=== PATIENT | female | born 1940 | race Caucasian/White ===

== ENCOUNTER → 2019-07-07 11:30 | Outpatient (BNVA) | payer MEDICARE, BC, SELFPAY | PROVIDERS: Family Provider Internal Medicine; PCP Internal Medicine; Visit Provider Nurse Practitioner Family | DX: M25.532 Pain in left wrist (principal) | CPT/HCPCS: 73110 ==

== ENCOUNTER → 2019-09-13 16:00 | Outpatient (BNVA) | payer MEDICARE, BC, SELFPAY | PROVIDERS: Family Provider Internal Medicine; PCP Internal Medicine; Visit Provider Internal Medicine Rheumatology | DX: M35.3 Polymyalgia rheumatica (principal); M81.0 Age-related osteoporosis without current pathological fracture; N18.3 Chronic kidney disease, stage 3 (moderate); Z79.899 Other long term (current) drug therapy; Z79.52 Long term (current) use of systemic steroids; M79.661 Pain in right lower leg; M79.662 Pain in left lower leg | CPT/HCPCS: 99215; G0463 ==

== ENCOUNTER 2019-09-15 08:31 | Outpatient (CLI) | payer MEDICARE, BC, SELFPAY ==
--- NOTE | 2019-09-15 08:45 | XR_ITS ---
WS: [id number] LEFT TIBIA-FIBULA 2 VIEWS HISTORY: leg pain COMPARISON: None available. No acute fracture. Mild osteoarthritis at the compartments of the knee. No soft tissue calcifications . XR/XR tibia fibula LT 2V [id number] IMPRESSION: Mild tricompartment osteoarthritis at the LEFT knee.
--- NOTE | 2019-09-15 08:45 | XR_ITS ---
WS: [id number] RIGHT TIBIA-FIBULA 2 VIEWS HISTORY: leg pain COMPARISON: None available. No acute fracture. Mild osteoarthritic changes at the knee involving all 3 compartments. No bone dest ruction. No calcification. XR/XR tibia fibula RT 2V [id number] IMPRESSION: Mild tricompartment osteoarthritis RIGHT knee.
== END 2019-09-15 08:32 | disposition home or self-care (01) ==
LOC: RADWPI 08:36
PROVIDERS: Family Provider Internal Medicine; PCP Internal Medicine; Visit Provider Internal Medicine Rheumatology
DX: M17.0 Bilateral primary osteoarthritis of knee (principal)
CPT/HCPCS: 73590

== ENCOUNTER 2019-10-14 13:45 | Outpatient (CLI) | payer MEDICARE, BC, SELFPAY ==
--- NOTE | 2019-10-14 13:51 | MM_ITS ---
WS: [id number] BILATERAL DIGITAL SCREENING MAMMOGRAPHY WITH CAD CLINICAL INFORMATION: SCREENING HISTORY: Screening mammogram. No current complaints. COMPARISON: May 27, 2018 TECHNIQUE: Bilateral CC and MLO views. FINDINGS: Scattered fibroglandular densities bilaterally. No suspicious focal mass, asymmetry, calcifications, or architectural distortion. No evidence of malignancy. Stable tiny punctate calcifications. MM/[place] [id number] IMPRESSION: BI-RADS: 2-Benign FOLLOW UP: 1 Year Follow-up Recommend return to annual screening mammography.
== END 2019-10-14 13:46 | disposition home or self-care (01) ==
LOC: RADSHAW 13:50
PROVIDERS: PCP Internal Medicine; Visit Provider Internal Medicine
DX: Z12.31 Encounter for screening mammogram for malignant neoplasm of breast (principal)
CPT/HCPCS: 77067

== ENCOUNTER → 2019-11-15 14:53 | Outpatient (BNVA) | payer MEDICARE, BC, SELFPAY | PROVIDERS: PCP Internal Medicine; Visit Provider Internal Medicine Rheumatology | DX: M35.3 Polymyalgia rheumatica (principal); M81.0 Age-related osteoporosis without current pathological fracture; Z79.899 Other long term (current) drug therapy; E20.9 Hypoparathyroidism, unspecified; N18.3 Chronic kidney disease, stage 3 (moderate); Z79.52 Long term (current) use of systemic steroids; M17.0 Bilateral primary osteoarthritis of knee; M48.061 Spinal stenosis, lumbar region without neurogenic claudication | CPT/HCPCS: 99214 ==

== ENCOUNTER → 2020-01-12 13:49 | Outpatient (BNVA) | payer MEDICARE, BC, SELFPAY | PROVIDERS: PCP Internal Medicine; Referring Provider Internal Medicine; Visit Provider Internal Medicine | DX: E89.0 Postprocedural hypothyroidism (principal); E89.2 Postprocedural hypoparathyroidism; M81.0 Age-related osteoporosis without current pathological fracture; N18.3 Chronic kidney disease, stage 3 (moderate) | CPT/HCPCS: 99204 ==

== ENCOUNTER → 2020-01-17 13:10 | Outpatient (BNVA) | payer MEDICARE, BC, SELFPAY | PROVIDERS: PCP Internal Medicine; Visit Provider Internal Medicine Rheumatology | DX: M35.3 Polymyalgia rheumatica (principal); N18.3 Chronic kidney disease, stage 3 (moderate); M81.0 Age-related osteoporosis without current pathological fracture; Z79.899 Other long term (current) drug therapy; E89.0 Postprocedural hypothyroidism; E89.2 Postprocedural hypoparathyroidism; M17.0 Bilateral primary osteoarthritis of knee; M48.061 Spinal stenosis, lumbar region without neurogenic claudication | CPT/HCPCS: 99214 ==

== ENCOUNTER → 2020-01-31 13:17 | Outpatient (BNVA) | payer MEDICARE, BC, SELFPAY | PROVIDERS: PCP Internal Medicine; Visit Provider Internal Medicine | DX: E83.51 Hypocalcemia (principal); E89.2 Postprocedural hypoparathyroidism; E89.0 Postprocedural hypothyroidism; M81.0 Age-related osteoporosis without current pathological fracture | CPT/HCPCS: 99214 ==

== ENCOUNTER 2020-01-31 14:36 | Outpatient (CLI) | payer MEDICARE, BC, SELFPAY ==
[2020-01-31 16:16] LABS: Calcium 10.3 mg/dL (8.5-10.5); Parathyroid Hormone 1.2 pg/mL (15-65)
[2020-01-31 16:36] LABS: 25 Hydroxy Vitamin D 40 ng/mL (30-100); Alkaline Phosphatase 98 IU/L (35-105); Anion Gap 18.9 (5-19); Blood Urea Nitrogen 21 mg/dL (8-23); Calcium 9.7 mg/dL (8.5-10.5); Carbon Dioxide 26 mmol/L (22-29); Chloride 100 mmol/L (98-107); Glucose 115 mg/dL (65-115); Osmolality Calculated 296 mOsm/kg (285-295); Phosphorus 4.7 mg/dL (2.5-4.5); Potassium 3.9 mmol/L (3.5-5.1); Sodium 141 mmol/L (136-145)
== END 2020-01-31 14:37 | disposition home or self-care (01) ==
LOC: LAB 14:42
PROVIDERS: PCP Internal Medicine; Visit Provider Internal Medicine
DX: E20.9 Hypoparathyroidism, unspecified (principal); M81.0 Age-related osteoporosis without current pathological fracture; N18.30 Chronic kidney disease, stage 3 unspecified
CPT/HCPCS: 80048; 82306; 82310; 83970; 84075; 84080; 84100

== ENCOUNTER 2020-03-28 13:51 | Outpatient (CLI) | payer MEDICARE, BC, SELFPAY ==
--- NOTE | 2020-03-28 14:15 | XR_ITS ---
WS: [id number] DEXA (DUAL ENERGY X-RAY ABSORPTIOMETRY) Bone mineral density was performed using a [employer] machine. HISTORY: osteoporosis COMPARISON: 03/24/2018 Lumbar spine BMD (L1-L4): 1.305 g/cm2 T score: 1.0 Z score: 2.4 Total hip BMD: Right: 0.918. T score: -0.7 Z score: 0.9 Left forearm BMD: 0.790 g/cm2. T score: -1.0 Z score: 1.6 10 year probability of a major osteoporotic fracture is 22%. Compared to the prior study from 03/24/2018. Lumbar spine bone mineral density has increased by 3.2%. RIGHT hip bone mineral density has decreased by 0.2%. XR/XR DEXA axial skeleton* [id number] IMPRESSION: NORMAL BONE MINERAL DENSITY based upon the WHO classification for females. Sign ificant increase in bone mineral density lumbar spine since the prior study.
== END 2020-03-28 13:52 | disposition home or self-care (01) ==
LOC: RADWPI 13:56
PROVIDERS: PCP Internal Medicine; Visit Provider Internal Medicine Rheumatology
DX: M81.0 Age-related osteoporosis without current pathological fracture (principal)
CPT/HCPCS: 77080

== ENCOUNTER 2020-04-14 09:48 | Outpatient (CLI) | payer MEDICARE, BC, SELFPAY | END 2020-04-14 09:49 | disposition home or self-care (01) | PROVIDERS: PCP Internal Medicine; Visit Provider Internal Medicine | DX: E89.0 Postprocedural hypothyroidism (principal); E89.2 Postprocedural hypoparathyroidism; M81.0 Age-related osteoporosis without current pathological fracture; N18.30 Chronic kidney disease, stage 3 unspecified | CPT/HCPCS: 36415; 99214 ==

== ENCOUNTER → 2020-05-08 14:47 | Outpatient (BNVA) | payer MEDICARE, BC, SELFPAY | PROVIDERS: PCP Internal Medicine; Visit Provider Internal Medicine Rheumatology | DX: M35.3 Polymyalgia rheumatica (principal); M81.0 Age-related osteoporosis without current pathological fracture; M16.0 Bilateral primary osteoarthritis of hip; M17.0 Bilateral primary osteoarthritis of knee; M48.061 Spinal stenosis, lumbar region without neurogenic claudication; N18.30 Chronic kidney disease, stage 3 unspecified; E89.2 Postprocedural hypoparathyroidism; I87.2 Venous insufficiency (chronic) (peripheral); Z79.899 Other long term (current) drug therapy | CPT/HCPCS: 99214 ==

== ENCOUNTER → 2020-06-29 15:46 | Outpatient (BNVA) | payer MEDICARE, BC, SELFPAY | PROVIDERS: PCP Internal Medicine; Visit Provider Internal Medicine | DX: E83.51 Hypocalcemia (principal); E89.2 Postprocedural hypoparathyroidism; M81.0 Age-related osteoporosis without current pathological fracture; N18.30 Chronic kidney disease, stage 3 unspecified | CPT/HCPCS: 99215 ==

== ENCOUNTER → 2020-09-04 14:18 | Outpatient (BNVA) | payer MEDICARE, BC, SELFPAY | PROVIDERS: PCP Internal Medicine; Visit Provider Internal Medicine Rheumatology | DX: M35.3 Polymyalgia rheumatica (principal); R51.9 Headache, unspecified; Z79.899 Other long term (current) drug therapy; Z79.52 Long term (current) use of systemic steroids; N18.30 Chronic kidney disease, stage 3 unspecified; I87.2 Venous insufficiency (chronic) (peripheral); M81.0 Age-related osteoporosis without current pathological fracture; M17.0 Bilateral primary osteoarthritis of knee; M16.0 Bilateral primary osteoarthritis of hip; Z96.642 Presence of left artificial hip joint | CPT/HCPCS: 36415; 85651; 86140; 99214 ==

== ENCOUNTER 2020-09-04 15:48 | Outpatient (CLI) | payer MEDICARE, BC, SELFPAY ==
[2020-09-04 16:35] LABS: C Reactive Protein 2.5 mg/L (0.0-4.9)
[2020-09-04 18:02] LABS: Erythrocyte Sedimentation Rate 25 mm/hr (0-15)
== END 2020-09-04 15:49 | disposition home or self-care (01) ==
LOC: LAB 15:57
PROVIDERS: PCP Internal Medicine; Visit Provider Internal Medicine Rheumatology
DX: M35.3 Polymyalgia rheumatica (principal); Z79.899 Other long term (current) drug therapy
CPT/HCPCS: 36415; 85651; 86140

== ENCOUNTER → 2020-09-08 09:34 | Outpatient (BNVA) | payer MEDICARE, BC, SELFPAY | PROVIDERS: PCP Internal Medicine; Visit Provider Surgery | DX: Z20.822 Contact with and (suspected) exposure to COVID-19 (principal) | CPT/HCPCS: 87635 ==

== ENCOUNTER 2020-09-13 05:38 | Day surgery (SDC) | payer MEDICARE, BC, SELFPAY ==
[2020-09-12 14:06] VITALS: BMI 37.5
[2020-09-13 06:10] VITALS: BP 177/78; PULSE 70; RESP 20; TEMP 36.4; O2SAT 97
[2020-09-13] MEDS: sodium chloride 0.9% 1,000 ML 30 ML IV (06:25)
--- NOTE | 2020-09-13 06:54 | W.PM.OPSUD ---
Surgery/Procedure H&P Update DATE OF PROCEDURE: September 13, 2020 DATE H&P PERFORMED: 09/05/20 H&P UPDATE INFORMATION: I have reviewed H&P completed within last 30 days, I have examined patient prior to procedure and No changes to prior documentation PREOP DIAGNOSIS: Right temporal headache PLANNED PROCEDURE: Operation Date: 09/13/20 07:00 Proposed Procedures p RIGHT TEMPORAL ARTERY BIOPSY UNDER MAC 31852 R51.9(Right) - Awais Werner MD
--- NOTE | 2020-09-13 06:54 | ANES.PREANE2 ---
Pre-Anesthetic Assessment Pre-Anesthetic Assessment: Height/Weight: Height 1.52 m Weight 87.09 kg Temp Pulse Resp BP Pulse Ox 97.6 F 70 20 H 177/78 97 09/13/20 06:10 09/13/20 06:10 09/13/20 06:10 09/13/20 06:10 09/13/20 06:10 Preop Diagnosis: Right temporal headache Proposed Procedure: Operation Date: 09/13/20 07:00 Proposed Procedures p RIGHT TEMPORAL ARTERY BIOPSY UNDER MAC 58311 R51.9(Right) - Awais Werner MD Was Beta Francia taken within 24 hours: N/A Was Clonidine taken within 24 hours: N/A Last intake: Intake Last Liquid Date 09/12/20 Last Liquid Time 20:00 Last Solid Date 09/12/20 Last Solid Time 16:00 Social: Social History: No alcohol and No tobacco Exam: Pre-Anes Outpt Exam: alert, oriented x 3, clear to auscultation bilaterally and regular rate & rhythm Airway: Submandibular: WNL Cervical ROM: Other (Some limitation) MP: 3 Dentition: Full CV/HEM: CV/HEM: HTN : : Chronic renal Insufficiency GI: GI: GERD Metabolic: Metabolic: Morbid obesity and Thyroid Musc/skel: Comments: PMR-chronic steroid Anesthetic Plan: ASA status: 3 Anesthesia: MAC Risk of > 500 ml blood loss (7ml/kg in children): No Meds/Allergies Current Medications: Current Medications Generic Name Dose Route Start Last Admin Trade Name Freq PRN Reason Stop Dose Admin Sodium Chloride 1,000 mls @ 30 ml s/hr 09/13/20 06:00 09/13/20 06:25 Sodium Chloride 0.9% IV 09/14/20 05:59 30 mls/hr .Q24H ANSELMO Administration PFSH Anesthesia PFSH: Medical History CKD (chronic kidney disease) stage 3, GFR 30-59 ml/min GERD (gastroesophageal reflux disease) Hypertension Hypocalcemia Hypoparathyroidism Osteoporosis PMR (polymyalgia rheumatica) Right temporal headache Surgical History H/O thyroidectomy History of arthroscopy of right knee History of left hip replacement Status post colonoscopy Family History Other CAD (coronary artery disease) Cancer Diabetes Hypertension Stroke Denies family history of Rheumatoid arthritis Systemic lupus erythematosus (SLE) in adult Social History Smoking and tobacco status: never smoked Alcohol intake: never History of recent travel: No Data Anesthesia Cardiac Studies: No Data to Display
[2020-09-13] MEDS: lidocaine 1% INJ 20 mL SUBCUT (07:22)
--- NOTE | 2020-09-13 07:48 | PM.OP ---
Operative Report Date of procedure: September 13, 2020 Pre-op Diagnosis: Right temporal headache Post-op diagnosis: same Procedure Done: Right superficial temporal artery biopsy Specimens removed/disposition: Right superficial temporal artery Surgeon: Awais Werner Anesthesia: MAC Condition: stable Disposition: PACU Procedure: The patient was taken to the operating room and the right temporal artery was marked using a Doppler and the hair overlying the markings were clipped. 5 mL of 1% lidocaine with 0.5% Marcaine was infiltrated around this area. Using a 15 blade the skin and subcutaneous tissue was divided until the temporoparietal fascia was identified. The temporoparietal fascia was opened using iris scissors and about a 3 cm segment of temporal artery was skeletonized. Small vascular clips were applied proximally and distally and the artery was divided and sent to pathology. Hemostasis ensured, subcutis tissue approximate using running 3-0 Vicryl suture and skin was closed using running subcuticular 4-0 Monocryl suture and Dermabond.
[2020-09-13 07:50] VITALS: BP 151/67; PULSE 96; RESP 16; TEMP 36.1; O2SAT 95
[2020-09-13 07:55] VITALS: BP 142/74; PULSE 74; RESP 16; TEMP 36.4; O2SAT 95
[2020-09-13 08:00] VITALS: BP 158/66; PULSE 64; RESP 16; TEMP 36.4; O2SAT 94
[2020-09-13 08:13] VITALS: BP 158/65; PULSE 67; RESP 18; O2SAT 96
[2020-09-13 08:29] VITALS: BP 154/71; PULSE 63; RESP 18; O2SAT 97
--- NOTE | 2020-09-13 13:35 | ANE.PACU2 ---
Inpatient post-anesthesia follow up: Airway intact: Yes Vital signs: Temperature 97.6 F Pulse Rate 63 Respiratory Rate 18 Blood Pressure 154/71 Pulse Oximetry 97 Oxygen Delivery Me thod Room Air Oxygen Flow Rate Fraction of Inspir ed Oxygen Hydration adequate: Yes Nausea and vomiting: No Pain level: 1 Mental status: Baseline
== END 2020-09-13 08:45 | disposition home or self-care (01) ==
PROVIDERS: PCP Internal Medicine; Visit Provider Surgery
PROC: (CPT 37609; principal; 2020-09-13 07:00)
DX: R51.9 Headache, unspecified (principal); I10 Essential (primary) hypertension; K21.9 Gastro-esophageal reflux disease without esophagitis; E66.01 Morbid (severe) obesity due to excess calories; Z68.37 Body mass index [BMI] 37.0-37.9, adult; E03.9 Hypothyroidism, unspecified; M81.0 Age-related osteoporosis without current pathological fracture
CPT/HCPCS: 37609; 88305; J0690; J2704; J3010; J3490; J7030

== ENCOUNTER → 2020-09-26 11:35 | Outpatient (BNVA) | payer MEDICARE, BC, SELFPAY | PROVIDERS: PCP Internal Medicine; Visit Provider Internal Medicine Rheumatology | DX: M35.3 Polymyalgia rheumatica (principal); M31.6 Other giant cell arteritis; R51.9 Headache, unspecified; Z79.899 Other long term (current) drug therapy; Z79.52 Long term (current) use of systemic steroids; M81.0 Age-related osteoporosis without current pathological fracture; M17.0 Bilateral primary osteoarthritis of knee; M48.061 Spinal stenosis, lumbar region without neurogenic claudication; I87.2 Venous insufficiency (chronic) (peripheral); E89.2 Postprocedural hypoparathyroidism; Z96.642 Presence of left artificial hip joint | CPT/HCPCS: 99214 ==

== ENCOUNTER 2020-10-03 10:20 | Outpatient (CLI) | payer MEDICARE, BC, SELFPAY ==
--- NOTE | 2020-10-03 10:35 | XRR_ITS ---
PROCEDURE INFORMATION: Exam: XR Pelvis Exam date and time: 10/03/2020 10:44 AM Age: 80 years old Clinical indication: Pain and injury or trauma; Fall; Blunt trauma (contusions or hematomas); Does not apply; Pelvic region; Pelvic pain; Prior surgery; Surgery type: Left total hip; Additional info: Acute back pain/hx of falling TECHNIQUE: Imaging protocol: XR pelvis. Views: 1 or 2 view. COMPARISON: CR Pelvis AP 1 or 2 views* [id number] 12/24/2016 9:48 AM FINDINGS: Bones/joints: Metallic left hip arthroplasty is present in good position. No acute fracture. Soft tissues: Unremarkable. Other findings: similar findings seen comparing to prior examination XR/XR pelvis 1-2V* [id number] IMPRESSION: 1. Metallic arthroplasty left hip in good position 2. No acute findings.
--- NOTE | 2020-10-03 10:35 | XRR_ITS ---
PROCEDURE INFORMATION: Exam: XR Cervical Spine Exam date and time: 10/03/2020 10:44 AM Age: 80 years old Clinical indication: Pain and injury or trauma; Fall; Blunt trauma; Cervicalgia; Additional info: Acute back pain/hx of falling TECHNIQUE: Imaging protocol: XR of the cervical spine. Views: 2 or 3 views. COMPARISON: CR Modified Barium Swallow [id number] 05/11/2015 11:37 AM FINDINGS: Bones/joints: There is a moderate osteoarthritis seen with intervertebral disc space narrowing and bone spurs at multiple levels. No acute subluxations are seen.. No acute fracture. There is loss of cervical lordosis which may reflect muscle spasm Soft tissues: Soft tissues in the anterior neck show multiple metallic surgical clips. XR/XR cervical spine 3V* [id number] IMPRESSION: 1. No acute bony abnormality. 2. Moderate osteoarthritis. 3. Surgical clips anterior neck soft tissues
--- NOTE | 2020-10-03 10:35 | XRR_ITS ---
PROCEDURE INFORMATION: Exam: XR Lumbosacral Spine Exam date and time: 10/03/2020 10:44 AM Age: 80 years old Clinical indication: Pain and injury or trauma; Fall; Blunt trauma (contusions or hematomas); Low back pain; Additional info: Acute back pain/hx of falling TECHNIQUE: Imaging protocol: XR of the lumbosacral spine. Views: 2 or 3 views. COMPARISON: CR Pelvis AP 1 or 2 views* [id number] 12/24/2016 9:48 AM FINDINGS: Bones/joints: There is multilevel intervertebral disc space narrowing corresponding to moderate osteoarthritis. No acute fracture. There is retrolisthesis L4-L5. Soft tissues: Unremarkable. XR/XR lumbar spine 2-3V* [id number] IMPRESSION: 1. No acute findings. 2. Moderate osteoarthritis. 3. Retrolisthesis L4-L5
--- NOTE | 2020-10-03 10:35 | XRR_ITS ---
PROCEDURE INFORMATION: Exam: XR Thoracic Spine Exam date and time: 10/03/2020 10:44 AM Age: 80 years old Clinical indication: Pain and injury or trauma; Fall; Blunt trauma (contusions or hematomas); Pain in thoracic spine; Additional info: Acute back pain/hx of falling TECHNIQUE: Imaging protocol: XR of the thoracic spine. Views: 3 views. COMPARISON: No relevant prior studies available. FINDINGS: Bones/joints: There is generalized osteopenia. No acute fracture. Normal alignment. There is a circumscribed sclerotic sclerotic appearing density posterior aspect of T10 on the lateral view which is not documented on other views and may reflect positional artifact Soft tissues: Unremarkable. XR/XR thoracic spine 2V [id number] IMPRESSION: No acute findings.
== END 2020-10-03 10:21 | disposition home or self-care (01) ==
PROVIDERS: PCP Internal Medicine; Visit Provider Internal Medicine
DX: M54.2 Cervicalgia (principal); M54.5 Low back pain; M54.6 Pain in thoracic spine; Z96.642 Presence of left artificial hip joint; M47.816 Spondylosis without myelopathy or radiculopathy, lumbar region; M47.812 Spondylosis without myelopathy or radiculopathy, cervical region
CPT/HCPCS: 72040; 72070; 72100; 72170

== ENCOUNTER → 2020-10-18 12:56 | Outpatient (BNVA) | payer MEDICARE, BC, SELFPAY | PROVIDERS: PCP Internal Medicine; Visit Provider Internal Medicine Rheumatology | DX: M35.3 Polymyalgia rheumatica (principal); Z79.899 Other long term (current) drug therapy | CPT/HCPCS: 36415; 80076; 82565; 85025; 86140 ==

== ENCOUNTER → 2020-11-07 14:37 | Outpatient (BNVA) | payer MEDICARE, BC, SELFPAY | PROVIDERS: PCP Internal Medicine; Visit Provider Internal Medicine Rheumatology | DX: M31.6 Other giant cell arteritis (principal); M35.3 Polymyalgia rheumatica; Z79.899 Other long term (current) drug therapy; Z71.89 Other specified counseling; I87.2 Venous insufficiency (chronic) (peripheral); N18.30 Chronic kidney disease, stage 3 unspecified; E89.0 Postprocedural hypothyroidism; M81.0 Age-related osteoporosis without current pathological fracture; M17.0 Bilateral primary osteoarthritis of knee; M48.061 Spinal stenosis, lumbar region without neurogenic claudication | CPT/HCPCS: 99214 ==

== ENCOUNTER 2020-11-30 10:48 | Inpatient (IN) | payer MEDICARE, BC, SELFPAY ==
[2020-11-30] VITALS (9 sets, daily range): BP systolic 125–175; BP diastolic 73–87; PULSE 76–97; RESP 15–20; TEMP 36.4–36.6; O2SAT 89–95; BMI 36.1
--- NOTE | 2020-11-30 11:53 | ECG_ITS ---
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 Measurements Intervals Binger Rate: 98 P: 38 WV: 161 QRS: 11 QRSD: 83 T: 38 QT: 317 QTc: 406 Interpretive Statements SINUS RHYTHM LOW QRS VOLTAGE IN PRECORDIAL LEADS [QRS DEFLECTION < 1.0 mV IN CHEST LEADS] ANTEROSEPTAL MYOCARDIAL INFARCTION [40+ ms Q WAVE IN V1-V4], OF INDETERMINATE AGE Compared to ECG 06/23/2018 12:01:19 Myocardial infarct finding now present Electronically Signed On 12-01-2020 16:43:04 CDT by Sridevi Vila M.D. [id number]
--- NOTE | 2020-11-30 11:54 | XRR_ITS ---
PROCEDURE INFORMATION: Exam: XR Chest Exam date and time: 11/30/2020 11:54 AM Age: 80 years old Clinical indication: Pain; Shortness of breath; Angina pectoris; Additional info: Chest pain TECHNIQUE: Imaging protocol: XR of the chest. Views: 1 view. COMPARISON: CR Chest 1 [place] [id number] 01/06/2017 9:27 AM FINDINGS: Lungs: Stable left lower lobe granuloma (17.3 mm). No consolidation. Pleural spaces: Unremarkable. No pleural effusion. No pneumothorax. Heart/Mediastinum: Unremarkable. No cardiomegaly. Bones/joints: Unremarkable. XR/XR chest 1V portable [id number] IMPRESSION: 1. No acute findings. 2. Stable left lower lobe calcified granuloma
--- NOTE | 2020-11-30 12:27 | W.ED.WEAKNES ---
HPI - Weakness General: Chief complaint: Weakness Stated complaint: WEAK WITH FATIGUE Time Seen by Provider: 11/30/20 11:07 History of Present Illness: HPI Narrative: Patient is a 80-year-old female with a history of CKD stage III, GCA currently on steroid taper (12.5mg daily), hypothyroidism, hypertension, obesity, who presents the emergency room for evaluation of fatigue x2 weeks in the setting of generalized weakness and exertional shortness of breath since then. Patient noticed that her lower extremity has become more swollen in the last 2 weeks. In addition, patient says that performing daily activities has become more difficult since then. Patient has a history of hypothyroidism for which she takes Synthroid has not changed her dose. She denies any chest pain, abdominal pain, diarrhea, lost of tase, nausea vomiting, diarrhea, cough, runny nose sore throat. Onset: 2 weeks ago Duration: 2 weeks Location: home Review of Systems Narrative: Constitutional: no subjective fever, + generalized weakness HEENT: No vision changes CV: No chest pain, no palpitations PULM: no cough, +dyspnea. GI: No abdominal pain, no N/V/D. : No dysuria MSKEL: No muscle pain SKIN: No new rashes, no lesions. +lower extremity swelling NEURO: No headache, no focal weakness. HEME: No visible bruises PSYCH: Normal mood PFSH ED PFSH: Medical History CKD (chronic kidney disease) stage 3, GFR 30-59 ml/min GERD (gastroesophageal reflux disease) Giant cell arteritis Hypertension Hypocalcemia Hypoparathyroidism Immunization counseling Osteoporosis PMR (polymyalgia rheumatica) Right temporal headache Surgical History H/O thyroidectomy History of arthroscopy of right knee History of left hip replacement History of temporal artery biopsy (09/13/20) Status post colonoscopy Family History (Updated 11/30/20 @ 16:20 by Darryn Santizo MD) Father CAD (coronary artery disease) Prostate cancer Mother CAD (coronary artery disease) Sister Blood disorder Other Cancer Diabetes Hypertension Stroke Denies family history of Rheumatoid arthritis Systemic lupus erythematosus (SLE) in adult Social History Smoking and tobacco status: never smoked Alcohol intake: never History of recent travel: No Physical Exam Narrative: EXAM NARRATIVE: Head: Atraumatic Eyes: PERRL, conjunctiva without injection ENT: Mucous membrane moist NECK: Supple without lymphadenopathy LUNGS: Coarse breath sounds b/l CV: RRR ABDOMEN: Soft, nontender in all quadrants, no guarding or rebound tenderness EXTREMITY: Normal ROM, mild superimposed 1+ pitting edema and nonpitting edema b/l SKIN: Shinny anterior layton b/l NEURO: Awake and alert. No focal motor deficits. PSYCH: Normal mood and affect. Course ED course: Patient is a 80-year-old female with history of CKD, hypertension, hypothyroidism, on steroids presenting to the emergency room for evaluation of generalized fatigue and shortness of breath x2 weeks. On exam, patient is noted to have 1+ pitting edema in the setting of nonpitting edema in the lower extremity. Otherwise no crackles on exam. Hemodynamically stable. Laboratory evaluation is significant for proBNP of 500. Patient is noted to have a calcium level of 14. Patient, she is currently on Calcitrol takes Lasix 3 times a week. Patient tells me that in the past when she was seen at [facility] in 2019, her calcium level was also elevated. Since then, patient has had difficulty adjusting her calcium level. EKG showed normal sinus rhythm with poor R wave progression, otherwise no ST-T wave changes, IN/QRS/QT within normal limit. Leukocytosis likely secondary to steriod use. Given multiple comorbidities including CKD, steroid taper, hypertension, age and exertional shortness, patient will be mid to the hospital for cardiac work-up. Initial troponin within normal limit. Disposition: Admission Vital Signs: Vital signs: Vital Signs Temperature 97.6 F 11/30/20 18:41 Pulse Rate 97 11/30/20 18:41 Respiratory Rate 20 H 11/30/20 18:41 Blood Pressure 175/87 11/30/20 18:41 Pulse Oximetry 92 11/30/20 18:41 MDM - Weakness Lab Data: Labs: Lab Results 11/30/20 11/30/20 11/30/20 Range/Units 12:25 12:25 12:25 WBC 12.4 H (4.0-10.0) 10^3/ uL RBC 4.20 (4.1-5.3) 10^6/u L Hgb 13.9 (11.5-15.3) g/dL Hct 42.3 (37.0-47.0) % MCV 100.7 H (81-99) fL MCH 33.1 (28.0-34.0) pg MCHC 32.9 (30.0-36.0) g/dL RDW 14.6 (12.1-15.1) % Plt Count 300 (130-400) 10^3/c mm MPV 8.8 (7.4-10.4) fL Neut % (Auto) 83.8 % Lymph % (Auto) 9.5 % Burke % (Auto) 3.3 % Eos % (Auto) 1.4 % Baso % (Auto) 0.6 % Neut # (Auto) 10.41 H (1.8-7.7) 10^3/u L Lymph # (Auto) 1.2 (0.8-4.8) 10^3/u L Burke # (Auto) 0.4 (0.2-0.9) 10^3/u L Eos # (Auto) 0.2 (0.0-0.8) 10^3/u L Baso # (Auto) 0.1 (0.0-0.1) 10^3/u L Nucleated RBC % (a uto) 0 % Nucleated RBCs # 0.0 /100WBC Sodium 139 (136-145) mmol/L Potassium 4.4 (3.5-5.1) mmol/L Chloride 97 L (98-107) mmol/L Carbon Dioxide 28 (22-29) mmol/L Anion Gap 18.4 (5-19) BUN 30 H (8-23) mg/dL Creatinine 1.7 H (0.5-0.9) mg/dL GFR Calculation Not Reportable Glucose 106 (65-115) mg/dL Calculated Osmolal ity 295 (285-295) mOsm/k g Calcium 14.2 H* (8.5-10.5) mg/dL Total Bilirubin 0.5 (0.15-1.2) mg/dL AST 27 (0-32) U/L ALT 25 (0-33) U/L Alkaline Phosphata se 57 (35-105) IU/L Troponin T Baselin e 44 H (0-10) ng/L Troponin T 120 Min [place] (0-10) ng/L Delta Troponin T (0-10) ABS# C-Reactive Protein 0.6 (0.0-4.9) mg/L NT-Pro-B Natriuret Pep 579 H (0-450) pg/mL Total Protein 6.7 (6.6-8.7) g/dL Albumin 4.4 (3.5-5.2) g/dL Globulin 2.3 (1.3-4.6) g/dL TSH 1.08 (0.27-4.20) uIU/ mL Free T4 1.45 (0.82-1.77) ng/d L SARS-CoV-2 Ag (Rap id) (Negative) 11/30/20 11/30/20 Range/Units 12:25 14:37 WBC (4.0-10.0) 10^3/ uL RBC (4.1-5.3) 10^6/u L Hgb (11.5-15.3) g/dL Hct (37.0-47.0) % MCV (81-99) fL MCH (28.0-34.0) pg MCHC (30.0-36.0) g/dL RDW (12.1-15.1) % Plt Count (130-400) 10^3/c mm MPV (7.4-10.4) fL Neut % (Auto) % Lymph % (Auto) % Burke % (Auto) % Eos % (Auto) % Baso % (Auto) % Neut # (Auto) (1.8-7.7) 10^3/u L Lymph # (Auto) (0.8-4.8) 10^3/u L Burke # (Auto) (0.2-0.9) 10^3/u L Eos # (Auto) (0.0-0.8) 10^3/u L Baso # (Auto) (0.0-0.1) 10^3/u L Nucleated RBC % (a uto) % Nucleated RBCs # /100WBC Sodium (136-145) mmol/L Potassium (3.5-5.1) mmol/L Chloride (98-107) mmol/L Carbon Dioxide (22-29) mmol/L Anion Gap (5-19) BUN (8-23) mg/dL Creatinine (0.5-0.9) mg/dL GFR Calculation Glucose (65-115) mg/dL Calculated Osmolal ity (285-295) mOsm/k g Calcium (8.5-10.5) mg/dL Total Bilirubin (0.15-1.2) mg/dL AST (0-32) U/L ALT (0-33) U/L Alkaline Phosphata se (35-105) IU/L Troponin T Baselin e (0-10) ng/L Troponin T 120 Min [place] 37.44 H (0-10) ng/L Delta Troponin T -6.56 L (0-10) ABS# C-Reactive Protein (0.0-4.9) mg/L NT-Pro-B Natriuret Pep (0-450) pg/mL Total Protein (6.6-8.7) g/dL Albumin (3.5-5.2) g/dL Globulin (1.3-4.6) g/dL TSH (0.27-4.20) uIU/ mL Free T4 (0.82-1.77) ng/d L SARS-CoV-2 Ag (Rap id) Negative (Negative) Discharge Plan Discharge Patient Disposition: Admitted As Inpatient Admit Provider: Darryn Santizo Clinical Impression: Hypercalcemia, Breath, shortness Condition: Stable Coding Level of Care Code ED [employer] 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
[2020-11-30 12:36] LABS: Basophils # 0.1 10^3/uL (0.0-0.1); Basophils % 0.6 %; Eosinophils # 0.2 10^3/uL (0.0-0.8); Eosinophils % 1.4 %; Hematocrit 42.3 % (37.0-47.0); Hemoglobin 13.9 g/dL (11.5-15.3); Lymphocytes # 1.2 10^3/uL (0.8-4.8); Lymphocytes % 9.5 %; Mean Corpuscular HGB Conc 32.9 g/dL (30.0-36.0); Mean Corpuscular Hemoglobin 33.1 pg (28.0-34.0); Mean Corpuscular Volume 100.7 fL (81-99); Mean Platelet Volume 8.8 fL (7.4-10.4); Monocytes # 0.4 10^3/uL (0.2-0.9); Monocytes % 3.3 %; Neutrophils # 10.41 10^3/uL (1.8-7.7); Neutrophils % 83.8 %; Nucleated Red Blood Cells % 0 %; Platelet Count 300 10^3/cmm (130-400); Red Cell Distribution Width 14.6 % (12.1-15.1); White Blood Count 12.4 10^3/uL (4.0-10.0)
[2020-11-30 13:10] LABS: Troponin(5th) Baseline 44 ng/L (0-10)
[2020-11-30 13:11] LABS: SARS Covid-2 Antigen Negative (Negative)
[2020-11-30 13:48] LABS: Alanine Aminotransferase 25 U/L (0-33); Albumin Level 4.4 g/dL (3.5-5.2); Alkaline Phosphatase 57 IU/L (35-105); Anion Gap 18.4 (5-19); Aspartate Amino Transferase 27 U/L (0-32); Blood Urea Nitrogen 30 mg/dL (8-23); C Reactive Protein 0.6 mg/L (0.0-4.9); Carbon Dioxide 28 mmol/L (22-29); Chloride 97 mmol/L (98-107); Globulin 2.3 g/dL (1.3-4.6); Glucose 106 mg/dL (65-115); NT Pro B Type Natriuretic Pept 579 pg/mL (0-450); Osmolality Calculated 295 mOsm/kg (285-295); Potassium 4.4 mmol/L (3.5-5.1); Sodium 139 mmol/L (136-145); Thyroid Stimulating Hormone 1.08 uIU/mL (0.27-4.20); Total Bilirubin 0.5 mg/dL (0.15-1.2); Total Protein 6.7 g/dL (6.6-8.7)
--- NOTE | 2020-11-30 13:53 | ECG_ITS ---
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 Measurements Intervals [place] Rate: 93 P: 38 [place]: 156 QRS: 11 QRSD: 90 T: 40 QT: 305 QTc: 379 Interpretive Statements SINUS RHYTHM POSSIBLE ANTERIOR MYOCARDIAL INFARCTION [30 ms Q WAVE IN V3/V4, OR R < 0.2 mV IN V4], OF INDETERMINATE AGE Compared to ECG 06/23/2018 12:01:19 Myocardial infarct finding now present Electronically Signed On 12-01-2020 16:48:24 CDT by Sridevi Vila M.D. [id number]
[2020-11-30 13:58] LABS: Calcium 14.2 mg/dL (8.5-10.5)
[2020-11-30 14:21] LABS: Free T4 Free Thyroxine 1.45 ng/dL (0.82-1.77)
[2020-11-30] MEDS: sodium chloride 0.9% 500 ML IV (14:23)
[2020-11-30 15:11] LABS: Troponin 5 2HR 37.44 ng/L (0-10)
[2020-11-30 15:20] LABS: Troponin 5 2HR Delta -6.56 ABS# (0-10)
--- NOTE | 2020-11-30 16:13 | P.HP_ITS ---
Providers/Chief Complaint Admitting Physician: Darryn Santizo MD Primary Care Provider: Leti Ocasio MD Chief Complaint: WEAK WITH FATIGUE History of Present Illness Maggie Jeffers is a 80 year old female with a past medical history of thyroidectomy for thyroid adenoma, subsequent parathyroidectomy, with hypocalcemia since secondary to decreased functioning parathyroid gland and Prolia, on calcium replacement therapy, giant cell arteritis on Actemra and prednisone, recently Plaquenil has been stopped, chronic kidney disease stage III, polymyalgia rheumatica, who presents to [facility] due to fatigue, weakness, bilateral lower extremity swelling, and shortness of breath. Patient tells me that recently her Plaquenil for her giant cell arteritis and PMR was stopped, and she was switched over to prednisone she is taking 12.5, in addition she is on Actemra her dose was on Friday. For the last week or so she has been progressively feeling more weak, fatigued, tired, barely able to walk due to tiredness. In addition she tells me that her legs have been swelling, more than usual, they feel heavy, she is on Lasix but she only uses it 3 times a week because of her chronic kidney disease. In addition she has been feeling more short of breath with exertion,. No orthopnea, no paroxysmal nocturnal dyspnea. No chest pain. She does have a family history of CAD, her mother, and all her brothers and sisters all had CAD. No smoking. No fever, does have a cough related to her sinuses, she has gained weight, no night sweats, no new rashes, no abdominal pain, no headache, blurry vision, no paresthesias, no dysuria, hematuria, no flank pain. She tells me that she decided to come to the emergency room today, because today she just felt profoundly fatigued more than usual. No history of cancer, she does have a family history of a rare blood cancer in her sister, but she does not remember what it was but that it affected the liver. She tells me that she had a thyroid adenoma for which she had a thyroidectomy, but 2 over parathyroids were transplanted in the thyroid so they could not be removed, 2 of her parathyroids were put back into her neck or chest. She tells me that a few years ago, she was diagnosed with osteoporosis and placed on Prolia, however she developed severe hypocalcemia for which she was brought back to the hospital, received calcium replacement. Since then she has been told that she is hypoparathyroid, she has hypocalcemia, and she uses calcitriol and calcium replacement. Denies taking more medication than prescrib ed. Review of Systems Const: Reports: fatigue and malaise; Denies: fever(s) or chills Eyes: Denies: change in vision or blurry vision ENMT: Denies: nasal congestion Card: Reports: edema, swelling of feet/ankles and dyspnea on exertion; Denies: chest pain, palpitations, irregular heart rhythm or lightheadedness Resp: Reports: dyspnea; Denies: productive cough, non-productive cough or wheezing GI: Denies: abdominal pain, nausea, vomiting, hematemesis, diarrhea, constipation, hematochezia or melena : Denies: flank pain, dysuria or urinary frequency Musc: Denies: neck pain or back pain Skin/Breast: Denies: rash Neuro: Denies: headache(s), dizziness or vertigo Endo: Denies: polyuria or polydipsia Medications/Allergies Home Medications Medication Instructions Recorded Confirmed Last Taken Type pantoprazole 40 mg tablet,delayed 40 mg PO DAILY 09/09/19 11/30/20 11/30/20 History release acetaminophen 500 mg tablet 1,000 mg PO QID 01/12/20 11/30/20 11/30/20 History aspirin 81 mg tablet,delayed 81 mg PO DAILY 01/12/20 11/30/20 11/30/20 History release rosuvastatin 5 mg tablet 5 mg PO DAILY 01/12/20 11/30/20 11/30/20 History calcitriol 0.25 mcg capsule 0.25 mcg PO DAILY #90 cap 01/31/20 11/30/20 11/30/20 Rx levothyroxine 88 mcg tablet 88 mcg PO DAILY 90 Days #100 tab 07/11/20 11/30/20 11/30/20 Rx calcium carbonate 300 mg (750 mg) 300 mg PO DAILY 11/07/20 11/30/20 11/30/20 History chewable tablet furosemide 40 mg tablet See Rx Instructions PO .COMPLEX 11/07/20 11/30/20 Unknown History gabapentin 300 mg capsule 300 mg PO TID #90 cap 11/07/20 11/30/20 11/30/20 Rx potassium chloride 10 mEq 10 meq PO DAILY 11/07/20 11/30/20 11/30/20 History tablet,extended release prednisone 20 mg tablet 12.5 mg PO DAILY tab 11/07/20 11/30/20 11/30/20 History tocilizumab 162 mg/0.9 mL 162 mg SUBCUT .once a week 30 Days 11/07/20 11/30/20 11/28/20 Rx subcutaneous syringe #4 ml levocetirizine 5 mg PO DAILY 11/30/20 11/30/20 11/30/20 History multivitamin with minerals [One A 1 tab PO DAILY 11/30/20 11/30/20 11/30/20 History Day W/Minerals] Allergies Allergy/AdvReac Type Severity Reaction Status Date / Time adhesive Allergy unknown Verified 11/07/20 14:59 PFSH Acute PFSH: Medical History CKD (chronic kidney disease) stage 3, GFR 30-59 ml/min GERD (gastroesophageal reflux disease) Giant cell arteritis Hypertension Hypocalcemia Hypoparathyroidism Immunization counseling Osteoporosis PMR (polymyalgia rheumatica) Right temporal headache Surgical History H/O thyroidectomy History of arthroscopy of right knee History of left hip replacement History of temporal artery biopsy (09/13/20) Status post colonoscopy Family History (Updated 11/30/20 @ 16:20 by Darryn Santizo MD) Father CAD (coronary artery disease) Prostate cancer Mother CAD (coronary artery disease) Sister Blood disorder Other Cancer Diabetes Hypertension Stroke Denies family history of Rheumatoid arthritis Systemic lupus erythematosus (SLE) in adult Social History Smoking and tobacco status: never smoked Alcohol intake: never History of recent travel: No Vitals/I&O/Wt Last Vital Signs Temp 97.6 F 11/30/20 16:10 Pulse 90 11/30/20 16:10 Resp 16 11/30/20 16:10 BP 171/73 11/30/20 16:10 Pulse Ox 93 11/30/20 16:10 Weight last 48 hrs Weight 83.915 kg Physical Exam Const: COMMON NORMALS: no acute distress and patient oriented x3 Eye: COMMON NORMALS: Equal, round and reactive pupils present and EOMs intact bilaterally GENERAL EYE: appearance normal, both eyes and all related structures PUPIL: Yes Equal, round and reactive pupils present Neck/C-Spine: COMMON NORMALS: full ROM, no lymphadenopathy, no JVD and Thyroid normal Resp: COMMON NORMALS: normal respiratory effort, No retractions, No use of accessory muscles and clear to auscultation bilaterally AUSCULTATION: clear to auscultation bilaterally Cardio: COMMON NORMALS: regular rate, regular rhythm, S1 normal heart sound present, S2 normal heart sound present, No gallops present (Cardio), No clicks present (Cardio) and No murmurs present (Cardio) RATE: regular rate RHYTHM: regular rhythm HEART SOUNDS: S1 normal heart sound present and S2 normal heart sound present GI: COMMON NORMALS: Normal to inspection, nondistended, normoactive bowel sounds present, Soft to palpation, non-tender and No hepatosplenomegaly present PALPATION: Yes Soft to palpation and Yes No hepatosplenomegaly present Extremity: COMMON NORMALS: normal to inspection and full ROM NARRATIVE EXTREMITY EXAM: 1+ pitting edema Neuro: COMMON NORMALS: patient oriented x3, CN's II-XII intact bilaterally and moves all extremities Psych: COMMON NORMALS: mental status grossly normal, Normal thought process present and cooperative THOUGHT PROCESS: Normal thought process present Data : 11/30/20 12:25 11/30/20 12:25 A&P Assessment and plan (1) Hypercalcemia: -Calcium 14.2 -Has a history of hypoparathyroidism and hypocalcemia from thyroidectomy -She was told that after her thyroidectomy, her 2 remaining parathyroid glands that remain were not functioning anymore -That she developed severe hypocalcemia from Prolia -Has been on calcium replacement -No history of cancers -Etiology unclear at this time -Possibilities include lab error we will recheck CMP -Recheck CMP, PTH, PTH RP, ionized calcium, ESR, CRP, 1 and 25 vitamin D, myeloma panel, B12 - other etiologies that could be possible is is that maybe her parathyroid glands are actually functioning, now she is developed hypercalcemia by taking calcitriol and calcium carbonate, calcitriol and calcium carbonate will be held for now -Unfortunately patient cannot get normal saline due to concerns of fluid overload and heart failure -She was given a partial bolus in the emergency room but developed shortness of breath thereafter -For now I will hold off on giving her fluids -If indeed she does have hypercalcemia, will draw try intranasal calcitonin -Check calcium levels every 4 hours -If they remain high we will try desunomab Full code Lovenox for DVT prophylaxis Status: Acute (2) Breath, shortness: -Etiology likely secondary to fluid overload from steroid use, with bilateral extreme edema -Possibly underlying diastolic CHF -Hold off on fluids -Hold off on steroids -Hold off on diuretics given her kidney function -Diurese as needed, currently not short of breath 1+ pitting edema Status: Acute (3) Giant cell arteritis: Status: Acute (4) Chronic steroid use: Status: Acute (5) Post-surgical hypoparathyroidism: Status: Acute (6) PMR (polymyalgia rheumatica): Status: Acute (7) CKD (chronic kidney disease) stage 3, GFR 30-59 ml/min: Has chronic kidney disease stage III, currently creatinine higher than normal 1.7 possibly secondary to Lasix use Status: Acute Attestations Medical Necessity Statement*: Patient requires hospitalization, inpatient, greater than 2 midnights, for hypercalcemia, shortness of breath, edema Coding Level of Care Code Acute Appeals Examiner for [facility] Fwd Diagnoses Hypercalcemia E83.52 Breath, shortness R06.02 Giant cell arteritis M31.6 Chronic steroid use Post-surgical hypoparathyroidism E89.2 PMR (polymyalgia rheumatica) M35.3 CKD (chronic kidney disease) stage 3, GFR 30-59 ml/min N18.3
[2020-11-30 16:38] LABS: LAB Peripheral Smear Sent for Review
[2020-11-30] MEDS: acetaminophen 500 mg Tablet 1000 MG PO ×2 (16:49→20:42)
[2020-11-30] MEDS: heparin 5,000 unit/mL INJ 1 mL 5000 UNIT SUBCUT (16:51)
[2020-11-30 16:57] LABS: Ionized Calcium 1.8 mmol/L (1.1-1.4)
[2020-11-30 17:34] LABS: Calcium 13.4 mg/dL (8.5-10.5)
[2020-11-30 17:37] LABS: Alanine Aminotransferase 24 U/L (0-33); Albumin Level 4.2 g/dL (3.5-5.2); Alkaline Phosphatase 51 IU/L (35-105); Aspartate Amino Transferase 26 U/L (0-32); Blood Urea Nitrogen 29 mg/dL (8-23); Calcium 13.2 mg/dL (8.5-10.5); Carbon Dioxide 27 mmol/L (22-29); Chloride 97 mmol/L (98-107); Creatinine Clr Calc Pharmacy 0; Globulin 2.3 g/dL (1.3-4.6); Glucose 97 mg/dL (65-115); Lactate Dehydrogenase 432 U/L (135-214); Lipase 20 U/L (13-60); Osmolality Calculated 290 mOsm/kg (285-295); Sodium 137 mmol/L (136-145); Total Bilirubin 0.5 mg/dL (0.15-1.2); Total Protein 6.5 g/dL (6.6-8.7)
[2020-11-30 17:40] LABS: Parathyroid Hormone 4.6 pg/mL (15-65)
[2020-11-30 17:53] LABS: 25 Hydroxy Vitamin D 35 ng/mL (30-100); Anion Gap 17.3 (5-19); Potassium 4.3 mmol/L (3.5-5.1); Vitamin B12 558 pg/mL (232-1245)
--- NOTE | 2020-11-30 17:53 | ECG_ITS ---
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 Measurements Intervals [place] Rate: 90 P: 32 DC: 155 QRS: 5 QRSD: 82 T: 71 QT: 275 QTc: 337 Interpretive Statements SINUS RHYTHM LOW QRS VOLTAGE IN PRECORDIAL LEADS [QRS DEFLECTION < 1.0 mV IN CHEST LEADS] POSSIBLE ANTERIOR MYOCARDIAL INFARCTION [30 ms Q WAVE IN V3/V4, OR R < 0.2 mV IN V4], OF INDETERMINATE AGE Compared to ECG 11/30/2020 13:07:47 Low QRS voltage now present Myocardial infarct finding still present Electronically Signed On 11-30-2020 23:05:26 CDT by Iftikhar Sherman M.D. [id number]
[2020-11-30 18:50] LABS: Erythrocyte Sedimentation Rate 16 mm/hr (0-15)
--- NOTE | 2020-11-30 18:53 | PC.NURSE ---
Shift Note Frequent safety and comfort rounds continue. Orders and/or nursing care completed as indicated. Patient monitored for response to intervention and treatment( BP, HR). Education provided includes[tylenol dosing which was discussed with patient and physician]. Patient and/or customer development representative [states understanding]. Will continue to monitor respiratory effort and pain status..
[2020-11-30 19:55] LABS: Troponin 5 6HR 36.85 ng/L (0-10)
[2020-11-30 20:09] LABS: Calcium 13.4 mg/dL (8.5-10.5)
[2020-11-30] MEDS: gabapentin 300 mg Capsule PO (20:42)
[2020-12-01] VITALS (9 sets, daily range): BP systolic 134–155; BP diastolic 58–75; PULSE 73–91; RESP 16–20; TEMP 36.3–36.4; O2SAT 90–97
[2020-12-01 01:13] LABS: Calcium 12.5 mg/dL (8.5-10.5)
[2020-12-01 04:11] LABS: Basophils # 0.1 10^3/uL (0.0-0.1); Basophils % 0.7 %; Eosinophils # 0.3 10^3/uL (0.0-0.8); Eosinophils % 3.2 %; Hematocrit 35.8 % (37.0-47.0); Hemoglobin 11.7 g/dL (11.5-15.3); Lymphocytes # 1.9 10^3/uL (0.8-4.8); Lymphocytes % 21.2 %; Mean Corpuscular HGB Conc 32.7 g/dL (30.0-36.0); Mean Corpuscular Hemoglobin 33.3 pg (28.0-34.0); Mean Platelet Volume 9.1 fL (7.4-10.4); Monocytes # 0.8 10^3/uL (0.2-0.9); Neutrophils # 5.69 10^3/uL (1.8-7.7); Neutrophils % 64.2 %; Nucleated Red Blood Cells % 0 %; Platelet Count 277 10^3/cmm (130-400); Red Blood Count 3.51 10^6/uL (4.1-5.3); Red Cell Distribution Width 14.6 % (12.1-15.1); White Blood Count 8.9 10^3/uL (4.0-10.0)
[2020-12-01 04:40] LABS: NT Pro B Type Natriuretic Pept 587 pg/mL (0-450)
[2020-12-01 04:51] LABS: Alanine Aminotransferase 19 U/L (0-33); Albumin Level 3.5 g/dL (3.5-5.2); Alkaline Phosphatase 41 IU/L (35-105); Anion Gap 12.8 (5-19); Aspartate Amino Transferase 20 U/L (0-32); Blood Urea Nitrogen 34 mg/dL (8-23); Calcium 12.5 mg/dL (8.5-10.5); Carbon Dioxide 27 mmol/L (22-29); Chloride 103 mmol/L (98-107); Creatinine Clr Calc Pharmacy 0; Globulin 1.8 g/dL (1.3-4.6); Glucose 87 mg/dL (65-115); Magnesium 2.1 mg/dL (1.7-2.3); Osmolality Calculated 295 mOsm/kg (285-295); Phosphorus 4.8 mg/dL (2.5-4.5); Potassium 3.8 mmol/L (3.5-5.1); Sodium 139 mmol/L (136-145); Total Bilirubin 0.4 mg/dL (0.15-1.2); Total Protein 5.3 g/dL (6.6-8.7)
[2020-12-01] MEDS: heparin 5,000 unit/mL INJ 1 mL 5000 UNIT SUBCUT ×2 (06:15→17:16)
--- NOTE | 2020-12-01 07:17 | PC.NURSE ---
Shift Note Frequent safety and comfort rounds continue. Orders and/or nursing care completed as indicated. Patient monitored for response to intervention and treatment(s). Education provided includes call light and fall risk safety. Patient and/or distribution sales representative verbalized understanding. Will continue to monitor.
--- NOTE | 2020-12-01 07:44 | USR_ITS ---
PROCEDURE INFORMATION: Exam: US Retroperitoneal; Complete; Kidneys and Bladder Exam date and time: 12/01/2020 7:44 AM Age: 80 years old Clinical indication: Abnormal findings; Abnormal lab test; Abnormal kidney function lab tests; Additional info: Vincent TECHNIQUE: Imaging protocol: Real-time ultrasound of the retroperitoneum with image documentation. Complete exam focused on the kidneys and bladder. COMPARISON: US abdomen limited [id number] 02/20/2017 7:16 AM FINDINGS: Right kidney: Right kidney measures 8.8 cm in length. No renal mass, calculus, or hydronephrosis. Left kidney: Left kidney measures 7.3 cm in length. No renal mass, calculus, or hydronephrosis. Ovaries: 8.0 cm simple cyst adjacent to the nondistended bladder, presumably representing an ovarian cyst. Dedicated pelvic ultrasound can be performed for improved characterization, as clinically indicated. Urinary bladder: Unremarkable as visualized. US/US renal BI* [id number] IMPRESSION: 1. Renal atrophy, without acute sonographic abnormality. 2. 8.0 cm cystic structure adjacent to the bladder, presumably representing an ovarian cyst.
[2020-12-01] MEDS: gabapentin 300 mg Capsule PO ×3 (09:10→20:51)
[2020-12-01] MEDS: potassium chloride ER 10 mEq Tablet PO (09:10)
[2020-12-01] MEDS: levothyroxine 88 mcg Tablet PO (09:11)
[2020-12-01] MEDS: acetaminophen 500 mg Tablet 1000 MG PO ×3 (09:11→17:15)
[2020-12-01] MEDS: atorvastatin 40 mg Tablet 20 MG PO (09:11)
[2020-12-01] MEDS: aspirin 81 mg EC Tablet PO (09:11)
[2020-12-01] MEDS: pantoprazole DR 40 mg Tablet PO (09:12)
--- NOTE | 2020-12-01 11:48 | P.CONIM_ITS ---
Providers/Reason For Consult Consulting Physician/Specialty*: Nephrology Reason for Consult*: Eval for HIEN and hypercalcemia Attending Physician: Darryn Santizo MD Primary Care Provider: Leti Ocasio MD History of Present Illness History of Present Illness Thank you for consultation, today had the pleasure of reviewing this very pleasant 80-year-old female for evaluation of acute on chronic kidney disease. Patient has an established history of chronic kidney disease, stage III, follows with Dr. Nathan Delvalle in the local nephrology clinic. She presents with fatigue, malaise, was found to have an elevated serum calcium of 14.2 and a creatinine of 1.7. She is received some intravenous volume since admission, diuretics have been held, however, her creatinine has drifted up a little to 2 mg/dL, calcium has drifted down to 12.5. She was taking combination of calcitriol 0.25 mcg daily as well as a single calcium tablet daily. This is due to her exposure to her Prolia and having had a thyroid nodule removed and parathyroid gland was also removed. She also has an interesting history of recent diagnosis of GCA, she received Actemra for this as well as prednisone is on a decreasing dose. She is currently on 12.5 mg daily for this. She also has a history of polymyalgia rheumatica for which she was being treated with Plaquenil. This medication was held at the initiation of Actemra. No episodes of renal failure in the past. She is passing urine normally without any obstruction. Some slight edema on admission in her lower extremities which is improved since hospitalization. No other symptoms of hypervolemia. Hemodynamics have been robust following hospitalization with systolic pressures between 140 and 160. She denies any recent initiation with NSAIDs and, no exposure to IV contrast or other potentially nephrotoxic substances. She chronically takes pantoprazole. She denies uremic symptoms at this time. Review of Systems Narrative: ROS - 12 point review of systems completed per HPI and subjective assessment, this includes Constitutional: Weakness, fatigue Respiratory: No SOB on exertion, comfortable at rest CardioVasc: No chest pain, palpitations Gastrointestinal: No nausea, no vomiting Neurological: No seizures, no AMS Derm: No new rashes, lesions or wounds Immunological: No seasonal and no food allergies Meds/Allergies Home Medications and Allergies Home Medications Medication Instructions Recorded Confirmed Last Taken Type pantoprazole 40 mg tablet,delayed 40 mg PO DAILY 09/09/19 11/30/20 11/30/20 History release acetaminophen 500 mg tablet 1,000 mg PO TID 01/12/20 11/30/20 11/30/20 History aspirin 81 mg tablet,delayed 81 mg PO DAILY 01/12/20 11/30/20 11/30/20 History release rosuvastatin 5 mg tablet 5 mg PO DAILY 01/12/20 11/30/20 11/30/20 History calcitriol 0.25 mcg capsule 0.25 mcg PO DAILY #90 cap 01/31/20 11/30/20 11/30/20 Rx levothyroxine 88 mcg tablet 88 mcg PO DAILY 90 Days #100 tab 07/11/20 11/30/20 11/30/20 Rx calcium carbonate 300 mg (750 mg) 300 mg PO DAILY 11/07/20 11/30/20 11/30/20 History chewable tablet furosemide 40 mg tablet See Rx Instructions PO .COMPLEX 11/07/20 11/30/20 Unknown History gabapentin 300 mg capsule 300 mg PO TID #90 cap 11/07/20 11/30/20 11/30/20 Rx potassium chloride 10 mEq 10 meq PO DAILY 11/07/20 11/30/20 11/30/20 History tablet,extended release prednisone 20 mg tablet 12.5 mg PO DAILY tab 11/07/20 11/30/20 11/30/20 History tocilizumab 162 mg/0.9 mL 162 mg SUBCUT .once a week 30 Days 11/07/20 11/30/20 11/28/20 Rx subcutaneous syringe #4 ml levocetirizine 5 mg PO DAILY 11/30/20 11/30/20 11/30/20 History multivitamin with minerals [One A 1 tab PO DAILY 11/30/20 11/30/20 11/30/20 History Day W/Minerals] Allergies Allergy/AdvReac Type Severity Reaction Status Date / Time adhesive Allergy unknown Verified 11/07/20 14:59 Current Medications Current Medications Generic Name Dose Route Start Last Admin Trade Name Freq PRN Reason Stop Dose Admin Acetaminophen 1,000 mg 11/30/20 17:00 12/01/20 09:11 Acetaminophen 500 Mg Tablet PO 1,000 mg QID ANSELMO Administration Aspirin 81 mg 12/01/20 09:00 12/01/20 09:11 Aspirin 81 Mg Ec Tablet PO 81 mg DAILY ANSELMO Administration Atorvastatin Calcium 20 mg 12/01/20 09:00 12/01/20 09:11 Atorvastatin 40 Mg Tablet PO 20 mg DAILY ANSELMO Administration Gabapentin 300 mg 11/30/20 21:00 12/01/20 09:10 Gabapentin 300 Mg Capsule PO 300 mg TID ANSELMO Administration Heparin Sodium (Beef Lung) 5,000 unit 11/30/20 16:30 12/01/20 06:15 Heparin 5,000 Unit/Ml Inj 1 Ml SUBCUT 5,000 unit Q12H ANSELMO Administration Levothyroxine Sodium 88 mcg 12/01/20 09:00 12/01/20 09:11 Levothyroxine 88 Mcg Tablet PO 88 mcg DAILY ANSELMO Administration Pantoprazole Sodium 40 mg 12/01/20 09:00 12/01/20 09:[address] 40 Mg Tablet PO 40 mg DAILY ANSELMO Administration Potassium Chloride 10 meq 12/01/20 09:00 12/01/20 09:10 Potassium Chloride Er 10 Meq Tablet PO 10 meq DAILY ANSELMO Administration PFSH Acute PFSH: Medical History CKD (chronic kidney disease) stage 3, GFR 30-59 ml/min GERD (gastroesophageal reflux disease) Giant cell arteritis Hypertension Hypocalcemia Hypoparathyroidism Immunization counseling Osteoporosis PMR (polymyalgia rheumatica) Right temporal headache Surgical History H/O thyroidectomy History of arthroscopy of right knee History of left hip replacement History of temporal artery biopsy (09/13/20) Status post colonoscopy Family History (Updated 11/30/20 @ 16:20 by Darryn Santizo MD) Father CAD (coronary artery disease) Prostate cancer Mother CAD (coronary artery disease) Sister Blood disorder Other Cancer Diabetes Hypertension Stroke Denies family history of Rheumatoid arthritis Systemic lupus erythematosus (SLE) in adult Social History Smoking and tobacco status: never smoked Alcohol intake: never History of recent travel: No Vitals/I&O/Wt Last Vital Signs Temp 97.3 F L 12/01/20 04:07 Pulse 84 12/01/20 08:00 Resp 16 12/01/20 08:00 BP 155/74 12/01/20 08:00 Pulse Ox 95 12/01/20 08:00 11/30/20 12/01/20 12/01/20 22:59 06:59 14:59 Intake Total 240 / 240 200 / 440 Output Total 300 / 300 Balance -60 / -60 200 / 140 Weight last 48 hrs Weight 0 g Weight 83.915 kg Physical Exam Narrative: EXAM NARRATIVE: Constitutional: Awake, comfortable HEENT: Wet mucosa, no jvp, non icteric Lungs: Bilaterally clear without discernible wheeze, rales in all lung zones CVS: S1 S2, no murmurs Abdo: Soft, BS ok Ext 4: Minimal edema, peripheral perfusion with no cyanosis Neurological: Grossly non-focal Coding Level of Care Code 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
--- NOTE | 2020-12-01 11:55 | PC.CHAP ---
Pastoral Care Encounter/Spiritual Assessment Type of Contact [] Declined orthodontist assistant visit [] Patient/Family/Request visit [] Outpatient visit [] Follow-up visit [] Physician referral [] Code/Alert [xx] Routine visit [] Staff referral [] Actively dying [] Patient sleeping [] Family support [] [] Out of room [] Palliative care [] [] Receiving care in room [] Pre-surgical visit [] Trauma [] Long length of stay [] ICU visit [] Other: Relational/Emotional Strength [xx] Patient feels connected with others/family/visitors/staff [] Distress [] Loneliness/isolation [] Abandonment Spirituality of Patient [xx] Person of Libia [xx] Attends Amish of their [place] [xx] Believes in Prayer [xx] Reads Bible or Sabianism materials [] There are Spiritual issues to be addressed Procurement Cost Coordinator Interventions [xx] Prayer [xx] Active listening [xx] Non-anxious presence [] Spiritual/emotional support [] Crisis/trauma care [] Spiritual counseling [] Bereavement support [] Provided bereavement packet [xx] Provided Bible/devotional materials [] Provided toy/stuffed animal, coloring book to patient or family member [] Provided Communion [] Anointing/[place] [] Salvation [xx] Completed spiritual assessment [] Other: Impact on Illness or Injury [] Angry [] Fearful [] Anxious [] Often cries [] Exhaustion [] Unable to work [] Unable to attend hinduism [] Unable to walk/stand [] Unable to read [] Unable to drive [] Unable to eat/drink [] Unable to sleep [] Unable to be with family [] Patient intubated [] Other: Summary Patient stated she is feeling better. She is a pleasant and jovial person and a delight to visit. Time spent with patient 7 minutes
[2020-12-01] MEDS: sodium chloride 0.9% 1,000 ML 75 ML IV (12:10)
[2020-12-01 13:20] LABS: Calcium 12.5 mg/dL (8.5-10.5)
--- NOTE | 2020-12-01 14:04 | PM.PN ---
Subjective Subjective: Interval history: Patient was seen this morning, she tells me that she is feeling okay in bed, but has not gotten out of bed, no nausea, no vomiting, no abdominal pain, no chest pain, no shortness of breath Vitals/I&O/Wt Last Vital Signs Temp 97.3 F L 12/01/20 04:07 Pulse 90 12/01/20 12:00 Resp 20 H 12/01/20 12:00 BP 134/75 12/01/20 12:00 Pulse Ox 94 12/01/20 12:00 11/30/20 12/01/20 12/01/20 22:59 06:59 14:59 Intake Total 240 / 240 200 / 440 Output Total 300 / 300 Balance -60 / -60 200 / 140 Weight last 48 hrs Weight 0 g Weight 83.915 kg Physical Exam Const: COMMON NORMALS: no acute distress and patient oriented x3 Resp: COMMON NORMALS: normal respiratory effort, No retractions, No use of accessory muscles and clear to auscultation bilaterally AUSCULTATION: clear to auscultation bilaterally Cardio: COMMON NORMALS: regular rate, regular rhythm, S1 normal heart sound present and S2 normal heart sound present RATE: regular rate RHYTHM: regular rhythm HEART SOUNDS: S1 normal heart sound present and S2 normal heart sound present GI: COMMON NORMALS: Normal to inspection, nondistended, normoactive bowel sounds present and Soft to palpation PALPATION: Yes Soft to palpation Extremity: COMMON NORMALS: no pedal edema Neuro: COMMON NORMALS: patient oriented x3 Psych: COMMON NORMALS: mental status grossly normal Data : 12/01/20 03:43 12/01/20 03:43 A&P Assessment and plan (1) Hypercalcemia: -Calcium 12.5 -Has a history of hypoparathyroidism and hypocalcemia from thyroidectomy -She was told that after her thyroidectomy, her 2 remaining parathyroid glands that remain were not functioning anymore -That she developed severe hypocalcemia from Prolia -Has been on calcium replacement -No history of cancers -Etiology likely secondary to calcitriol, calcium replacement, but certainly multiple myeloma in light of her elevated creatinine is a possibility -PTH low at 4.6 - PTH RP, ionized calcium, 1 and 25 vitamin D, myeloma panel, -Unfortunately patient cannot get normal saline due to concerns of fluid overload and heart failure -She was given a partial bolus in the emergency room but developed shortness of breath thereafter -Calcium has improved without any acute intervention, if continue to monitor downward trend, if he continues to decrease likely secondary to medications -If she becomes symptomatic or remains high can try intranasal calcitonin with pamidronate -Monitor calcium levels -Creatinine has increased to 2.0, no complaints of decreased urine output, will do renal ultrasound, urine studies, consult nephrology team Full code Lovenox for DVT prophylaxis Status: Acute (2) Breath, shortness: -Etiology likely secondary to fluid overload from steroid use, with bilateral extreme edema -Possibly underlying diastolic CHF -Hold off on fluids -Hold off on steroids -Hold off on diuretics given her kidney function -Diurese as needed, currently not short of breath 1+ pitting edema Status: Acute (3) Giant cell arteritis: Status: Acute (4) Chronic steroid use: Status: Acute (5) Post-surgical hypoparathyroidism: Status: Acute (6) PMR (polymyalgia rheumatica): Status: Acute (7) CKD (chronic kidney disease) stage 3, GFR 30-59 ml/min: Has chronic kidney disease stage III, currently creatinine higher than normal two-point Status: Acute Attestations Medical Necessity Statement*: Patient requires hospitalization due to HIEN and hypercalcemia, inpatient, greater than 2 midnights Coding Level of Care Code Acute 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 Fwd Diagnoses Hypercalcemia E83.52 Breath, shortness R06.02 Giant cell arteritis M31.6 Chronic steroid use Post-surgical hypoparathyroidism E89.2 PMR (polymyalgia rheumatica) M35.3 CKD (chronic kidney disease) stage 3, GFR 30-59 ml/min N18.3
[2020-12-01 15:14] LABS: Folate Level 12.8 ng/mL (4.8-37.3)
[2020-12-01 15:15] LABS: Urine Creatinine 141 mg/dL (28-217)
[2020-12-01 15:31] LABS: Urea Nitrogen,Urine Random 766 mg/dL
--- NOTE | 2020-12-01 16:21 | USCV_ITS ---
Maggie Jeffers Age: 80 Gender: F : 1940 Exam Date: 12/01/2020 05:58 Ordering Phys: Darryn Santizo MD Technologist: Allyssa Valencia [place] [facility] [place]: CHEST PAIN BP: 145 / 68 HR: 71 Rhythm: Sinus Technical Quality: Adequate MEASUREMENTS (Male / Female) Normal Values 2D ECHO LV Diastolic Diameter PLAX 2.8 cm 4.2 - 5.9 / 3.9 - 5.3 cm LV Systolic Diameter PLAX 2.6 cm LV Chamber Size 2.4 cm IVS Diastolic Thickness 1.7 cm 0.6 - 1.0 / 0.6 - 0.9 cm IVS Systolic Thickness 1.5 cm LVPW Diastolic Thickness 1.5 cm 0.6 - 1.0 / 0.6 - 0.9 cm LVPW Systolic Thickness 1.8 cm RV Chamber Size 2.1 cm LVOT Diameter 2.1 cm LV Ejection Fraction 2D Teich 14.4 % LV Ejection Fraction MOD 2C 36.5 % LV Ejection Fraction 2C AL 35.9 % LA Diameter 3.1 cm LA Width 2.6 cm LA Height 3.7 cm RA Width 3.4 cm RA Height 3.2 cm Aorta at Sinotubular Diameter 3.0 cm M-MODE LV Diastolic Diameter MM 4.1 cm 4.2 - 5.9 / 3.9 - 5.3 cm LV Systolic Diameter MM 2.3 cm LV Ejection Fraction MM Teich 74.0 % IVS Diastolic Thickness MM 1.2 cm 0.6 - 1.0 / 0.6 - 0.9 cm IVS Systolic Thickness MM 2.2 cm LVPW Diastolic Thickness MM 1.3 cm 0.6 - 1.0 / 0.6 - 0.9 cm LVPW Systolic Thickness MM 1.6 cm RV Diastolic Diameter MM 0.9 cm Aortic Annulus Diameter 3.1 cm LA Ao Ratio MM 1.1 MV E Point Septal Separation 0.7 cm DOPPLER AV Peak Velocity 181.0 cm/s LVOT Peak Velocity 104.0 cm/s AV Area Cont Eq vti 2.5 cm squared AV Area Cont Eq pk 2.0 cm squared MV Area PHT 2.2 cm squared Mitral E to A Ratio 0.7 MV E' Velocity 42.5 cm/s Mitral E to MV E' Ratio 9.6 Mitral E to LV E' Lateral Ratio 11.4 Mitral E to LV E' Septal Ratio 8.3 TR Peak Velocity 264.5 cm/s TR Peak Gradient 28.0 mmHg TR Mean Velocity 190.9 cm/s TR Mean Gradient 17.3 mmHg TR Velocity Time Integral 73.4 cm TV Peak E Velocity 59.0 cm/s Right Atrial Pressure 3.0 mmHg Pulmonary Artery Systolic Pressu 31.0 mmHg PV Peak Velocity 84.0 cm/s RV Acceleration Time 0.2 s RV Ejection Time 0.3 s RV AcT/ET 0.5 FINDINGS Left Ventricle Normal left ventricular size. LV systolic function is normal with EF of 60-65%. No regional wall motion abnormalities. Grade 1 diastolic dysfunction. Right Ventricle The right ventricle is normal in size and function. Right Atrium The right atrium is normal in size. Left Atrium The left atrium is normal in size. Mitral Valve Structurally normal mitral valve without significant stenosis or prolapse. There is no mitral regurgitation. Aortic Valve Structurally normal aortic valve without significant sclerosis or stenosis. There is mild aortic regurgitation. Tricuspid Valve Structurally normal tricuspid valve without significant stenosis. Mild tricuspid regurgitation. Insufficient TR jet to calculate RVSP Pulmonic Valve Structurally normal pulmonic valve without significant stenosis. There is no pulmonic regurgitation. Pericardium Normal pericardium without effusion. Aorta Normal ascending aorta dimension. CONCLUSIONS LV systolic function is normal with EF of 60-65% Grade 1 diastolic dysfunction Mild aortic regurgitation Mild tricuspid regurgitation No comparsion studies are available Iftikhar Shermna MD (Electronically Signed) Final Date: 01 December 2020 14:54 S
[2020-12-01 21:04] LABS: Calcium 11.4 mg/dL (8.5-10.5)
[2020-12-02] VITALS (8 sets, daily range): BP systolic 144–168; BP diastolic 57–90; PULSE 69–92; RESP 18–19; TEMP 36.7–36.8; O2SAT 88–97
[2020-12-02] MEDS: sodium chloride 0.9% 1,000 ML 75 ML IV (03:04)
[2020-12-02 03:21] LABS: Basophils # 0.1 10^3/uL (0.0-0.1); Basophils % 0.8 %; Eosinophils # 0.4 10^3/uL (0.0-0.8); Eosinophils % 7.3 %; Hematocrit 35.5 % (37.0-47.0); Hemoglobin 11.4 g/dL (11.5-15.3); Lymphocytes # 1.4 10^3/uL (0.8-4.8); Lymphocytes % 22.9 %; Mean Corpuscular HGB Conc 32.1 g/dL (30.0-36.0); Mean Corpuscular Hemoglobin 33.3 pg (28.0-34.0); Mean Corpuscular Volume 103.8 fL (81-99); Monocytes # 0.5 10^3/uL (0.2-0.9); Monocytes % 8.2 %; Neutrophils # 3.52 10^3/uL (1.8-7.7); Neutrophils % 58.8 %; Nucleated Red Blood Cells % 0 %; Platelet Count 243 10^3/cmm (130-400); Red Blood Count 3.42 10^6/uL (4.1-5.3); Red Cell Distribution Width 14.8 % (12.1-15.1)
[2020-12-02 03:50] LABS: Alanine Aminotransferase 17 U/L (0-33); Albumin Level 3.5 g/dL (3.5-5.2); Alkaline Phosphatase 43 IU/L (35-105); Anion Gap 12.1 (5-19); Aspartate Amino Transferase 20 U/L (0-32); Blood Urea Nitrogen 29 mg/dL (8-23); Calcium 10.8 mg/dL (8.5-10.5); Carbon Dioxide 27 mmol/L (22-29); Chloride 105 mmol/L (98-107); Creatinine Clr Calc Pharmacy 0; Globulin 1.5 g/dL (1.3-4.6); Glucose 85 mg/dL (65-115); Osmolality Calculated 295 mOsm/kg (285-295); Phosphorus 3.5 mg/dL (2.5-4.5); Potassium 4.1 mmol/L (3.5-5.1); Sodium 140 mmol/L (136-145); Total Bilirubin 0.4 mg/dL (0.15-1.2)
[2020-12-02 04:00] LABS: Procalcitonin 0.09 ng/mL (0-0.5)
[2020-12-02 04:48] LABS: PROTEIN, TOTAL 6.4 g/dL (6.1-8.1)
[2020-12-02] MEDS: heparin 5,000 unit/mL INJ 1 mL 5000 UNIT SUBCUT (05:12)
[2020-12-02] MEDS: aspirin 81 mg EC Tablet PO (09:04)
[2020-12-02] MEDS: predniSONE 5 mg Tablet 12.5 MG PO (09:04)
[2020-12-02] MEDS: pantoprazole DR 40 mg Tablet PO (09:04)
[2020-12-02] MEDS: levothyroxine 88 mcg Tablet PO (09:05)
[2020-12-02] MEDS: gabapentin 300 mg Capsule PO (09:05)
[2020-12-02] MEDS: atorvastatin 40 mg Tablet 20 MG PO (09:05)
[2020-12-02] MEDS: potassium chloride ER 10 mEq Tablet PO (09:05)
[2020-12-02] MEDS: acetaminophen 500 mg Tablet 1000 MG PO (09:11)
--- NOTE | 2020-12-02 10:42 | PC.NUTR ---
Nutrition note: Noted no weight in EMR for this pt. Unable to assess BMI for nutrition risk. Recommend obtain weight when possible.
--- NOTE | 2020-12-02 10:59 | P.PN_ITS ---
Subjective Subjective: Interval history: No new issues today, she has some very slight lower extremity edema but no other new concerns. Passing her urine without obstructive symptoms. On the ult rasound scan it was noted that she did have some post void residual although this volume was not calculated for us at this time. The kidneys otherwise looked pretty good. Renal function and calcium levels coming down nicely with the IV fluid that she is received overnight. No further nausea, vomiting, weakness. She is in a good mood, keen to go home. Vitals/I&O/Wt Last Vital Signs Temp 98.3 F 12/02/20 07:40 Pulse 90 12/02/20 07:40 Resp 19 H 12/02/20 07:40 BP 168/66 12/02/20 07:40 Pulse Ox 95 12/02/20 07:40 12/01/20 12/02/20 12/02/20 22:59 06:59 14:59 Intake Total 1200 / 1200 1220 / 1220 Output Total 375 / 375 Balance 825 / 825 1220 / 1220 Weight last 48 hrs Weight 0 g Weight 83.915 kg Physical Exam Narrative: EXAM NARRATIVE: Constitutional: Awake, comfortable HEENT: Wet mucosa, no jvp, non icteric Lungs: Bilaterally clear without discernible wheeze, rales in all lung zones CVS: S1 S2, no murmurs Abdo: Soft, BS ok Ext 4: Minimal edema, peripheral perfusion with no cyanosis Neurological: Grossly non-focal Data : 12/02/20 02:51 12/02/20 02:51 A&P Additional A&P Information 1. Acute kidney injury Likely to be combination of prerenal azotemia and hypercalcemia. Of note hypercalcemia cause renal dysfunction by 2 mechanisms, causes decreased glomerular blood flow via vasoconstriction, and also ask on the ascending loop of [place] in a similar way to loop diuretics to cause a overt natriuresis to cause further volume depletion. Calcium levels coming down nicely, renal function now improving nicely as well. Given that she has mild hypervolemic changes i.e. lower extremity edema I do agree with holding the IV fluid, would also defer any diuretics for the time being. Avoid usual nephrotoxic agents. To follow-up with Dr. Nathan Delvalle as an outpatient in the next week or 2. 2. Hypercalcemia Likely secondary to combination of calcitriol and Tums. Of note this becomes a self-perpetuating, vicious cycle, as calcium levels build up, it causes natriuresis as described above, which further causes volume depletion, which further causes an increased tendency towards hypercalcemia. These levels are coming down naturally now that these medications have been stopped. Given that she has had some parathyroid glands removed, and history of prior exposure, supplementation may have to resume, this can be overseen by Dr. Delvalle as an outpatient. 3. Hemodynamics Blood pressure little elevated this morning, continue to monitor and follow. No adjustment to medication. 4. Disposition From my perspective she can discharged today. Exam and interview performed with aid of bedside RN using telemedicine Time spent 20 min inc > 50% of time in face to face counseling Brandan Ye MD [facility] [phone] Attestations Medical Necessity Statement*: HIEN mgmt Coding Level of Care Code Acute Manager Cath Lab for Sergio Hodge
--- NOTE | 2020-12-02 11:02 | P.DS_ITS ---
Discharge Providers Date of Admission: 11/30/20 15:17 Date of Discharge: December 02, 2020 Attending Provider at Admission: Darryn Santizo MD Attending Provider at Discharge: Darryn Santizo MD Primary Care Provider: Leti Ocasio MD Diagnoses at Discharge Discharge Diagnosis (1) Hypercalcemia: Status: Acute (2) Breath, shortness: Status: Acute (3) Giant cell arteritis: Status: Acute (4) Chronic steroid use: Status: Acute (5) Post-surgical hypoparathyroidism: Status: Acute (6) PMR (polymyalgia rheumatica): Status: Acute (7) CKD (chronic kidney disease) stage 3, GFR 30-59 ml/min: Status: Acute Reason for Visit Reason for Visit: WEAK WITH FATIGUE Hospital Course Hospital Course Maggie Jeffers is a 80 year old female with a past medical history of thyroidectomy for thyroid adenoma, subsequent parathyroidectomy, with hypocalcemia since secondary to decreased functioning parathyroid gland and Prolia, on calcium replacement therapy, giant cell arteritis on Actemra and prednisone, recently Plaquenil has been stopped, chronic kidney disease stage III, polymyalgia rheumatica, who presents to [facility] due to fatigue, weakness, bilateral lower extremity swelling, and shortness of breath. Patient was admitted to [facility] for hypercalcemia, likely secondary to calcium replacement therapy. Her calcitriol, and Tums were held, she did briefly receive fluids, her calcium levels decreased to 10.8 on discharge. Given her hypoparathyroidism and hypocalcemia from thyroidectomy, patient will need to resume calcium replacement at some point. We will have patient follow-up with Dr. Odonnell in the next week for recheck calcium level, and resumption of her calcium supplementation. Of note patient's PTH was 4.6. However she also has a secondary work-up for hypercalcemia pending including PTH RP, myeloma panel, 1 and 25 vitamin D, elevated MCV which she should follow with Dr. Lazaro. Patient also developed acute kidney injury during hospitalization, likely secondary to azotemia and hypercalcemia, received brief IV hydration, diuretics were held, nephrotoxic agents were held, her calcium replacement were held. Patient clinically improved, maintain good urine output, creatinine on discharge 1.7. Patient was advised to continue to hold Lasix and calcium replacement until she is seen by nephrology and primary care as outpatient, recheck creatinine next week. For her shortness of breath, likely secondary to diastolic CHF, patient was clinically monitored, her shortness of breath did improve, she did get 1 dose of Lasix before discharge. Patient was advised to continue hold Lasix on discharge, until we can recheck her creatinine early next week. Echocardiogram showed an EF of 60 to 65%, grade 1 diastolic dysfunction. Physical Exam Const: COMMON NORMALS: no acute distress and patient oriented x3 Neck/C-Spine: COMMON NORMALS: no JVD Resp: COMMON NORMALS: normal respiratory effort, No retractions, No use of accessory muscles and clear to auscultation bilaterally AUSCULTATION: clear to auscultation bilaterally Cardio: COMMON NORMALS: no JVD, regular rate, regular rhythm, S1 normal heart sound present and S2 normal heart sound present RATE: regular rate RHYTHM: regular rhythm HEART SOUNDS: S1 normal heart sound present and S2 normal heart sound present GI: COMMON NORMALS: Normal to inspection, nondistended, normoactive bowel sounds present, Soft to palpation and non-tender PALPATION: Yes Soft to palpation Extremity: COMMON NORMALS: no pedal edema Neuro: COMMON NORMALS: patient oriented x3 Psych: COMMON NORMALS: mental status grossly normal Discharge Data Data Completed and Pending: Completed Studies During Hospitalization Category Date Time Status XR chest 1V maci ble [id number] Stat Exams 11/30/20 11:54 Completed CV. echo complete * [id number] Routine Ultrasound 12/01/20 16:21 Completed US renal BI* [id number] Routine Ultrasound 12/01/20 07:44 Completed Pending at discharge Category Date Time Status Complete Blood Co unt w/Auto AM LABS Lab 12/03/20 04:00 Ordered Complete Blood Co unt w/Auto AM LABS Lab 12/04/20 04:00 Ordered Comprehensive Met abolic Panel AM LA BS Lab 12/03/20 04:00 Ordered Comprehensive Met abolic Panel AM LA BS Lab 12/04/20 04:00 Ordered KAPPA/LAMBDA LIGH T FREE SERUM Stat Lab 11/30/20 16:39 Received Magnesium AM LABS Lab 12/03/20 04:00 Ordered PTH Related Pepti de (Protein) Stat Lab 11/30/20 16:39 Received Phosphorus AM LAB S Lab 12/03/20 04:00 Ordered Procalcitonin AM LABS Lab 12/03/20 04:00 Ordered Total Protein Hanh ctrophoresis Stat Lab 11/30/20 16:39 Results Urine Culture Sta t Lab 12/01/20 07:44 Ordered Urine Eosinophils Routine Lab 12/01/20 07:44 Ordered Urine Protein Hanh ctrop Random Stat Lab 11/30/20 19:30 Received Urine Random Lyte s Routine Lab 12/01/20 07:44 Ordered Vitamin D 1,25 Di hydroxy Stat Lab 11/30/20 16:39 Received Labs from last 24 hours 12/02/20 12/02/20 12/02/20 02:51 02:51 02:51 WBC 6.0 RBC 3.42 L Hgb 11.4 L Hct 35.5 L MCV 103.8 H MCH 33.3 MCHC 32.1 RDW 14.8 Plt Count 243 MPV 9.0 Neut % (Auto) 58.8 Lymph % (Auto) 22.9 [place] % (Auto) 8.2 Eos % (Auto) 7.3 Baso % (Auto) 0.8 Neut # (Auto) 3.52 Lymph # (Auto) 1.4 [place] # (Auto) 0.5 Eos # (Auto) 0.4 Baso # (Auto) 0.1 Nucleated RBC % (a uto) 0 Nucleated RBCs # 0.0 Sodium 140 Potassium 4.1 Chloride 105 Carbon Dioxide 27 Anion Gap 12.1 BUN 29 H Creatinine 1.7 H GFR Calculation Not Reportable Glucose 85 Calculated Osmolal ity 295 Calcium 10.8 H Phosphorus 3.5 Magnesium 2.0 Total Bilirubin 0.4 AST 20 ALT 17 Alkaline Phosphata se 43 Total Protein 5.0 L Albumin 3.5 Globulin 1.5 Folate Procalcitonin 0.09 Ur Random Urea Nit rogn Urine Creatinine 12/01/20 12/01/20 12/01/20 20:10 13:45 13:45 WBC RBC Hgb Hct MCV MCH MCHC RDW Plt Count MPV Neut % (Auto) Lymph % (Auto) [place] % (Auto) Eos % (Auto) Baso % (Auto) Neut # (Auto) Lymph # (Auto) [place] # (Auto) Eos # (Auto) Baso # (Auto) Nucleated RBC % (a uto) Nucleated RBCs # Sodium Potassium Chloride Carbon Dioxide Anion Gap BUN Creatinine GFR Calculation Glucose Calculated Osmolal ity Calcium 11.4 H Phosphorus Magnesium Total Bilirubin AST ALT Alkaline Phosphata se Total Protein Albumin Globulin Folate Procalcitonin Ur Random Urea Nit rogn 766 Urine Creatinine 141 12/01/20 12/01/20 11/30/20 12:24 03:43 16:39 WBC RBC Hgb Hct MCV MCH MCHC RDW Plt Count MPV Neut % (Auto) Lymph % (Auto) [place] % (Auto) Eos % (Auto) Baso % (Auto) Neut # (Auto) Lymph # (Auto) [place] # (Auto) Eos # (Auto) Baso # (Auto) Nucleated RBC % (a uto) Nucleated RBCs # Sodium Potassium Chloride Carbon Dioxide Anion Gap BUN Creatinine GFR Calculation Glucose Calculated Osmolal ity Calcium 12.5 H Phosphorus Magnesium Total Bilirubin AST ALT Alkaline Phosphata se Total Protein 6.4 Albumin Globulin Folate 12.8 Procalcitonin Ur Random Urea Nit rogn Urine Creatinine Vitals: Last Vital Signs Temp 98.3 F 12/02/20 07:40 Pulse 90 12/02/20 07:40 Resp 19 H 12/02/20 07:40 BP 168/66 12/02/20 07:40 Pulse Ox 95 12/02/20 07:40 Discharge Plan Discharge Patient Disposition: Home Condition: Stable Prescriptions: Continued pantoprazole [Protonix] 40 mg tablet,delayed release (DR/EC) 40 mg PO DAILY RF: 0 prednisone 20 mg tablet 12.5 mg PO DAILY RF: 0 potassium chloride 10 mEq tablet extended release 10 meq PO DAILY RF: 0 gabapentin 300 mg capsule 300 mg PO TID Qty: 90 RF: 4 Actemra 162 mg/0.9 mL syringe 162 mg SUBCUT .once a week 30 Days Qty: 4 RF: 3 rosuvastatin 5 mg tablet 5 mg PO DAILY RF: 0 aspirin 81 mg tablet,delayed release (DR/EC) 81 mg PO DAILY RF: 0 acetaminophen [Tylenol Extra Strength] 500 mg tablet 1,000 mg PO TID RF: 0 levothyroxine 88 mcg tablet 88 mcg PO DAILY 90 Days Qty: 100 RF: 3 One A Day W/Minerals Tablet 1 tab PO DAILY RF: 0 levocetirizine 5 mg tablet 5 mg PO DAILY RF: 0 Held furosemide [Lasix] 40 mg tablet See Rx Instructions PO .COMPLEX RF: 0 Hold Instructions: Resume on 12/09/20. hold until you see primary care and recheck kidney function calcium carbonate [Tums] 300 mg (750 mg) tablet,chewable 300 mg PO DAILY RF: 0 Hold Instructions: hold until you see endocrinology calcitriol 0.25 mcg capsule 0.25 mcg PO DAILY Qty: 90 RF: 3 Hold Instructions: Resume on 12/27/20. hold until you see endocrinology Discharge Orders: Discharge Order (Routine); Ordered 12/02/20 Ordered By: Darryn Santizo Referrals: Leti Ocasio MD [Primary Care Provider] - 1-3 days Chauncey Lazaro MD [Hospitalist] - 1 week ([facility] will contact you to schedule an appointment in 1 week. If you hven't heard from them by Friday afternoon. Please call ) Mariana Odonnell MD [Physician] - 1-3 days Discharge Diet: Cardiac Discharge Activity: Resume usual activity Patient Instructions: Opioid Safety Activity Restrictions/Additional Instructions: -Please avoid custom supplementation, calcitriol, until you see your primary care provider and Dr. Odonnell -Recheck calcium levels on Friday through primary care or Dr. Odonnell -Follow-up with Dr. Odonnell early next week -For your elevated kidney function, hold Lasix, follow-up with primary care provider on Friday for recheck kidney function -Please follow-up with Dr. Lazaro for elevated MCV, anemia, follow-up myeloma panel Discharge Attestations Time Spent in Discharge Care*: less than 30 min Quality Metrics Clinical Quality Measures During this hospital stay, did patient experience: None Coding Level of Care Code Acute Chg FW DC note Exam Detailed Diagnoses Hypercalcemia E83.52 Breath, shortness R06.02 Giant cell arteritis M31.6 Chronic steroid use Post-surgical hypoparathyroidism E89.2 PMR (polymyalgia rheumatica) M35.3 CKD (chronic kidney disease) stage 3, GFR 30-59 ml/min N18.3
[2020-12-02] MEDS: FUROsemide 10 mg/mL SDV 2mL 20 MG IVP (11:13)
--- NOTE | 2020-12-02 14:21 | PC.NURSE ---
Discharge Note Patient discharged to [home] via [w/c] accompanied by [daughter]. Discharge instructions reviewed with patient and/or telecommunications sales representative. Mobile pharmacy medications and/or prescriptions provided. Belongings/home medications returned.
[2020-12-02 16:37] LABS: Creatinine, Random Urine 64 mg/dL (20-275); Protein, Total, Random 28 mg/dL (5-24); Protein/Creatinine Ratio 0.438 (0.021-0.161); Protein/Creatinine Ratio 438 mg/g creat (21-161)
[2020-12-04 13:07] LABS: KAPPA LIGHT CHAIN, FREE, SERUM 22.3 mg/L (3.3-19.4); LAMBDA LIGHT CHAIN, FREE, SERU 18.6 mg/L (5.7-26.3)
[2020-12-04 13:12] LABS: ALBUMIN 3.9 g/dL (3.8-4.8); ALPHA 1 GLOBULIN 0.3 g/dL (0.2-0.3); ALPHA 2 GLOBULIN 0.9 g/dL (0.5-0.9); BETA 1 GLOBULIN 0.4 g/dL (0.4-0.6); BETA 2 GLOBULIN 0.3 g/dL (0.2-0.5); GAMMA GLOBULIN 0.6 g/dL (0.8-1.7)
[2020-12-04 15:32] LABS: Albumin,Urine Random 56 %; Alpha-1-Globulins Urine Random 3 %; Alpha-2-Globulins Urine Random 14 %; Beta-Globulin,Urine Random 19 %; Gamma Globulin,Urine Random 8 %
[2020-12-05 16:13] LABS: Vit D 1,25 (Oh)2, Total 84 pg/mL (18-72); Vit D2 1,25 (Oh)2 <8 pg/mL; Vit D3 1,25 (Oh)2 84 pg/mL
--- NOTE | 2020-12-07 09:13 | PC.SOCIAL ---
follow up call made to patient. patient reports feeling much better. All follow up appointments have been made except for Dr. Lazaro. I spoke with Dr. Lazaro's office and they are working on making her appointment. patient is aware of medications that are on hold. Has resume normal activity at home. Continuing 2L O2 NC.
[2020-12-07 21:58] LABS: PTH Related Peptide (Protein) 10 pg/mL (14-27)
== END 2020-12-02 14:22 | disposition home or self-care (01) | DRG 640 ==
LOC: ER 14:19 → CSU 15:34
PROVIDERS: Admitting Provider Family Medicine; Emergency Provider Emergency Medicine; PCP Internal Medicine; Visit Provider Family Medicine
DX: E83.52 Hypercalcemia (principal); I50.31 Acute diastolic (congestive) heart failure; I13.0 Hypertensive heart and chronic kidney disease with heart failure and stage 1 through stage 4 chronic kidney disease, or unspecified chronic kidney disease; N17.9 Acute kidney failure, unspecified; T50.995A Adverse effect of other drugs, medicaments and biological substances, initial encounter; E89.2 Postprocedural hypoparathyroidism; N18.30 Chronic kidney disease, stage 3 unspecified; M31.5 Giant cell arteritis with polymyalgia rheumatica; I25.10 Atherosclerotic heart disease of native coronary artery without angina pectoris; M81.0 Age-related osteoporosis without current pathological fracture; Z96.642 Presence of left artificial hip joint; Z79.52 Long term (current) use of systemic steroids
CPT/HCPCS: 36415; 71045; 76770; 80053; 82306; 82310; 82330; 82542; 82570; 82607; 82652; 82746; 83615; 83690; 83735; 83880; 83883; 83970; 84100; 84145; 84155; 84165; 84439; 84443; 84484; 84540; 85025; 85045; 85651; 86140; 87426; 93005; 93306; 96372; 97165; 99285; J1644; J1940; J7030; J7040; J7512; Q3014

== ENCOUNTER 2020-12-12 14:45 | Outpatient (CLI) | payer MEDICARE, BC, SELFPAY ==
[2020-12-12 16:47] LABS: Basophils # 0.1 10^3/uL (0.0-0.1); Basophils % 0.7 %; Eosinophils # 0.1 10^3/uL (0.0-0.8); Eosinophils % 0.7 %; Hematocrit 36.4 % (37.0-47.0); Hemoglobin 11.7 g/dL (11.5-15.3); LAB Peripheral Smear Sent for Review; Lymphocytes # 1.3 10^3/uL (0.8-4.8); Lymphocytes % 16.8 %; Mean Corpuscular HGB Conc 32.1 g/dL (30.0-36.0); Mean Corpuscular Hemoglobin 33.1 pg (28.0-34.0); Mean Corpuscular Volume 103.1 fl (81-99); Mean Platelet Volume 8.7 fL (7.4-10.4); Monocytes # 0.5 10^3/uL (0.2-0.9); Neutrophils # 5.56 10^3/uL (1.8-7.7); Neutrophils % 74.2 %; Nucleated Red Blood Cells % 0 %; Platelet Count 338 10^3/cmm (130-400); Red Blood Count 3.53 10^6/uL (4.1-5.3); Red Cell Distribution Width 14.6 % (12.1-15.1); Reticulocyte % 3.4 % (0.5-2.0); White Blood Count 7.5 10^3/uL (4.0-10.0)
[2020-12-12 18:30] LABS: Alanine Aminotransferase 23 U/L (0-33); Alkaline Phosphatase 43 IU/L (35-105); Anion Gap 14.6 (5-19); Aspartate Amino Transferase 21 U/L (0-32); Blood Urea Nitrogen 27 mg/dL (8-23); Calcium 9.6 mg/dL (8.5-10.5); Carbon Dioxide 26 mmol/L (22-29); Chloride 103 mmol/L (98-107); Globulin 2.3 g/dL (1.3-4.6); Glucose 107 mg/dL (65-115); Iron 163 ug/dL (37-145); Lactate Dehydrogenase 403 U/L (135-214); Osmolality Calculated 294 mOsm/kg (285-295); Percent Saturation 62.2 % (20-50); Potassium 4.6 mmol/L (3.5-5.1); Sodium 139 mmol/L (136-145); Total Bilirubin 0.4 mg/dL (0.15-1.2); Total Iron Binding Capacity 262 mcg/dl; Total Protein 6.3 g/dL (6.6-8.7); Unsaturated Iron Binding 99 ug/dL (112-347); Vitamin B12 481 pg/mL (232-1245)
--- NOTE | 2020-12-12 19:58 | ONC CON_ITS ---
Dr. Lazaro New Patient Note Patient: Maggie Jeffers Unit #: [id number]: 1940 Dicatated By: Chauncey Lazaro M.D.Date of Visit: Dec 12, 2020 Onc MED New Patient/Consult Referring Physician: Dr. BANDAR SINCLAIR M.D. Chief Complaint: Anemia. History of Present Illness: This is a 80 year-old woman with mild anemia. This patient has multiple medical illnesses including hypertension, hyperlipidemia, chronic kidney disease, hypothyroidism, GERD, obstructive sleep apnea, degenerative arthritis, and osteoporosis. She also has a history of hyperparathyroidism with subsequent hypoparathyroidism following parathyroidectomy. She also has polymyalgia which was initially diagnosed in 2010. I had seen her initially in November 2017. She had recently restarted on prednisone therapy for the polymyalgia rheumatica. She had been found to be mildly anemic with hemoglobin 10.7 g. Her red cell indices were normal. Her repeat CBC at that time showed just borderline low hemoglobin at 12.1 g. The remainder of her evaluation was unrevealing. As such, I had just recommended expectant management. In August 2020 she was confirmed by right temporal artery biopsy to have giant cell arteritis. At that time she had been on treatment with hydroxychloroquine and low-dose prednisone. With those findings, her prednisone dosage was increased and she also began treatment with tocilizumab.. On 11/30/2020 she was admitted to the hospital after presenting to the emergency room with weakness, shortness of breath, and swelling. She was found to have hypercalcemia, presumed to be related to her replacement therapy. She also was thought to have a component of diastolic congestive heart failure. During the hospitalization she was found to be mildly anemic with hemoglobin dropping to 11.4 g and hematocrit 35.5%. The red cell indices were slightly macrocytic. The white blood cell count was normal at 6000 and the platelet count was normal at 243,000. By discharge her calcium had come down to 10.8 mg/dL. Her renal function was slightly worse with BUN 29 and creatinine 1.7 mg/dL. She is now seen again in regard to the anemia. She says she has been wearing out her recliner at home. She has very limited activity. She does just very little light work, only just enough to get by. ECOG score is 2. She has good appetite on prednisone, which she has now being tapered. She does not have fever or night sweats. She has allergy related sinus symptoms. She has just very occasional cough. She has shortness of breath, and she is on oxygen. She does not complain of chest pain. She has acid reflux associated with hiatal hernia. She has no complaints with bowel or bladder function. She does have a lot of arthritis and she also has the polymyalgia. She is no longer having headaches. She has a little bit of dizziness. She has numbness/tingling in her feet. Past Medical History: Her medical history includes chronic kidney disease, gastroesophageal reflux disease, giant cell arteritis, glaucoma, hiatal hernia, history of hyperparathyroidism, hyperlipidemia, hypertension, hypothyroidism, obstructive sleep apnea, osteoarthritis, osteoporosis, polymyalgias rheumatica, and surgical hypoparathyroidism and hypocalcemia. Past Surgical History: Hersurgical/procedural history includes arthroscopic right knee surgery, bilateral cataract excisions, hemorrhoidectomy, hysterectomy without oophorectomy, parathyroidectomy in 2018, left total hip arthroplasty in 2016, EGD in 2016, and colonoscopy in 2014. Medications: Actemra 1 Each (of 162 ) Subcutaneous daily, Aspirin 1 Tablet (of 81 mg) Oral daily, Crestor 1 Each (of 5 mg) Tablet Oral daily, Gabapentin 1 Capsule (of 300 mg) Oral t.i.d., Levocetirizine Dihydrochloride (5 mg) Tablet Oral daily, Levothyroxine Sodium 1 Tablet (of 88 mcg) Oral daily, One-A-Day Womens Mind & Body 1 Tablet Oral daily, Pantoprazole Sodium 1 Tablet (of 40 mg) Tablet, enteric coated Oral daily, PredniSONE 1 Tablet (of 12.5 mg) Oral daily, Tylenol Tablet Oral PRN Allergies: Banana Social History: Ms. Jeffers is and she is retired. She is a nonsmoker. She does not drink alcohol. Family History: Her father had prostate cancer and heart disease. He of pneumonia at age 80. Mother with congestive heart failure at age 67. She also had diabetes. A brother of stroke at age 76. A sister at age 70 with end-stage liver disease due to autoimmune hepatitis. She also had monoclonal gammopathy. Review Of Symptoms: Constitutional - She says she has been wearing out her recliner. She is ambulatory. She does just very light work. Her ECOG score is 2. She has good appetite on prednisone. Her weight has been stable. She does not have fever or night sweats. ECOG score is 2, Eyes - No change in vision, ENMT - She has hearing loss. No tinnitus. She has allergy related sinus symptoms. No mouth sores. No sore throat or difficulty swallowing, Hematologic/Lymphatic - She has some bruising. No other bleeding, Respiratory - She has shortness of breath. She is on oxygen. No cough. No pleuritic pain or hemoptysis, Cardiovascular - No angina pain. No palpitations, Gastrointestinal - No nausea or vomiting. She has acid reflux associated with hiatal hernia. No diarrhea or constipation. No blood in the stool or black stools, Genitourinary (F) - No dysuria or hematuria. She has urinary frequency. No urgency or incontinence, Musculoskeletal - She has a lot of arthritis and she has polymyalgia, Neurologic - She was having headaches. She has a little dizziness. She has numbness/tingling in her feet. No other focal neurologic symptoms, Psychiatric - She has some anxiety with prednisone. No insomnia. Vital Signs: Performed on Dec 12, 2020 16:20: 8, 2, 37.50 (HIGH), 1.83 sq.m, 60.00 in, 96 %, 84 /min, 18 /min, 154/82 mm(hg) (HIGH), 97.4 F (LOW), and 192 lbs (HIGH). Physical Examination: Constitutional - She appears moderately cushinoid, Eyes - Sclerae nonicteric. Conjunctivae clear, ENMT - No lesions noted in the oral cavity, Neck - No mass or thyromegaly, Hematologic/Lymphatic - No cervical, clavicular, or axillary adenopathy, Respiratory - Lungs sound clear, Cardiovascular - Heart rhythm is regular. There is no murmur, gallop, or rub noted, Abdomen - Mildly distended but soft. Liver and spleen are not enlarged. There is no abdominal mass or ascites noted and there is no inguinal adenopathy, Back/Spine - No spine or CVA tenderness noted, Extremities - Mild lower extremity edema. She has scattered purpuric lesions, Integumentary - No rashes. No suspicious skin lesions noted, Neurologic - No focal neurologic deficits noted. Problem List: 1. Mild anemia. 2. Polymyalgia rheumatica/giant cell arteritis. 3. History of hyperparathyroidism with subsequent hypoparathyroidism following parathyroidectomy in July 2017. 4. Hypertension. 5. Hyperlipidemia. 6. Chronic kidney disease. 7. Diastolic congestive heart failure. 8. Hypothyroidism. 9. Hiatal hernia/GERD. 10. Obstructive sleep apnea. 11. Osteoarthritis. 12. Osteoporosis. 13. Glaucoma. Problems Addressed with this Encounter and Plan: Patient with mild anemia. The red cell indices are slightly macrocytic. Etiology is uncertain, but there are multiple possibilities, one of which is that may just be related to her treatment. B12 deficiency and or folate deficiency obviously need to be excluded. Iron deficiency also needs to be excluded, even with the macrocytic indices, and a hemolytic process also should be excluded.. Some component of chronic disease anemia would be likely. Early stage myelodysplastic syndrome is also a consideration. She will have additional laboratory studies today to include CBC, comprehensive metabolic profile, reticulocyte count, LDH level, haptoglobin level, B12 and folate levels, and serum iron studies. I will review the blood smear. She will have further evaluation as indicated. Signed By: Chauncey Lazaro M.D. <<Signature on File>>
[2020-12-12 22:22] LABS: Folate Level 18.8 ng/mL (4.8-37.3)
[2020-12-13 09:55] LABS: Calcium 9.5 mg/dL (8.5-10.5)
[2020-12-13 10:02] LABS: Parathyroid Hormone 5.6 pg/mL (15-65)
== END 2020-12-12 14:46 | disposition home or self-care (01) ==
LOC: ONCMED 14:53
PROVIDERS: PCP Internal Medicine; Visit Provider Internal Medicine Medical Oncology
DX: D64.9 Anemia, unspecified (principal); M31.5 Giant cell arteritis with polymyalgia rheumatica; Z86.39 Personal history of other endocrine, nutritional and metabolic disease; I10 Essential (primary) hypertension; E78.5 Hyperlipidemia, unspecified; N18.9 Chronic kidney disease, unspecified; I50.30 Unspecified diastolic (congestive) heart failure; E03.9 Hypothyroidism, unspecified; K44.9 Diaphragmatic hernia without obstruction or gangrene; K21.9 Gastro-esophageal reflux disease without esophagitis; G47.33 Obstructive sleep apnea (adult) (pediatric); M19.90 Unspecified osteoarthritis, unspecified site; M81.0 Age-related osteoporosis without current pathological fracture; H40.9 Unspecified glaucoma; Z79.899 Other long term (current) drug therapy
CPT/HCPCS: 36415; 80053; 82310; 82607; 82746; 83010; 83540; 83550; 83615; 83970; 85025; 85045; 99205

== ENCOUNTER 2020-12-15 13:12 | Outpatient (CLI) | payer MEDICARE, BC, SELFPAY ==
[2020-12-15 14:07] LABS: Phosphorus 3.2 mg/dL (2.5-4.5)
[2020-12-15 14:13] LABS: Calcium 8.7 mg/dL (8.5-10.5)
[2020-12-15 14:20] LABS: Parathyroid Hormone 6.8 pg/mL (15-65)
== END 2020-12-15 13:13 | disposition home or self-care (01) ==
PROVIDERS: PCP Internal Medicine; Visit Provider Internal Medicine
DX: E83.52 Hypercalcemia (principal); M81.0 Age-related osteoporosis without current pathological fracture
CPT/HCPCS: 36415; 82310; 83970; 84100

== ENCOUNTER 2020-12-18 10:55 | Outpatient (CLI) | payer MEDICARE, BC, SELFPAY ==
[2020-12-18 12:08] LABS: Alanine Aminotransferase 19 U/L (0-33); Albumin Level 3.8 g/dL (3.5-5.2); Alkaline Phosphatase 43 IU/L (35-105); Anion Gap 12.7 (5-19); Aspartate Amino Transferase 14 U/L (0-32); Blood Urea Nitrogen 19 mg/dL (8-23); Calcium 9.6 mg/dL (8.5-10.5); Carbon Dioxide 27 mmol/L (22-29); Chloride 104 mmol/L (98-107); Free T4 Free Thyroxine 1.48 ng/dL (0.82-1.77); Globulin 1.9 g/dL (1.3-4.6); Glucose 88 mg/dL (65-115); Osmolality Calculated 290 mOsm/kg (285-295); Potassium 4.7 mmol/L (3.5-5.1); Sodium 139 mmol/L (136-145); Thyroid Stimulating Hormone 0.68 uIU/mL (0.27-4.20); Total Bilirubin 0.4 mg/dL (0.15-1.2); Total Protein 5.7 g/dL (6.6-8.7)
== END 2020-12-18 10:56 | disposition home or self-care (01) ==
LOC: LAB 11:12
PROVIDERS: PCP Internal Medicine; Visit Provider Internal Medicine
DX: E83.51 Hypocalcemia (principal); E89.0 Postprocedural hypothyroidism; E89.2 Postprocedural hypoparathyroidism
CPT/HCPCS: 36415; 80053; 84439; 84443

== ENCOUNTER → 2020-12-25 13:05 | Outpatient (BNVA) | payer MEDICARE, BC, SELFPAY | PROVIDERS: PCP Internal Medicine; Visit Provider Internal Medicine | DX: E83.51 Hypocalcemia (principal) | CPT/HCPCS: 82310 ==

== ENCOUNTER → 2021-01-03 14:35 | Outpatient (BNVA) | payer MEDICARE, BC, SELFPAY | PROVIDERS: PCP Internal Medicine; Visit Provider Internal Medicine | DX: E20.9 Hypoparathyroidism, unspecified (principal) | CPT/HCPCS: 82310 ==

== ENCOUNTER 2021-01-15 14:45 | Outpatient (CLI) | payer MEDICARE, BC, SELFPAY ==
--- NOTE | 2021-01-15 14:48 | MR_ITS ---
WS: [id number] INDICATION: Ovarian cyst TECHNIQUE: MRI of the pelvis without gadolinium enhancement. Gadolinium was not administered due to s tage III renal disease. Coronal T1-T2 and STIR imaging. Axial T1 and T2 imaging. Sagittal T2 imaging. FINDINGS: Comparison ultrasound December 01, 2020 Images are somewhat limited due to body habitus and susceptibility artifact from the left NUPUR. Large T2 hyperintense midline cystic lesion in the pelvis measuring 8.8 x 10.1 x 8.7 cm AP by transverse by craniocaudal. Impingement on the anterior aspect of the bladder with flattening. This is likely [employer] in origin but unclear whether it originates from the right or left adnexa. This is positioned in the midline. No significant free fluid in the pelvis. No pelvic or inguinal lymphadenopathy. Normal bone marrow si gnal in the pelvis and sacrum. Mild disc bulging L4-L5 and L5-S1. MR/MR pelvis wo con* [id number] IMPRESSION: 1. Gadolinium was not administered due to stage III renal disease. 2. T2 hyperintense cystic lesion in the pelvis with compression on the anterio r aspect of the bladder presumably [employer] in origin. This measures approximately 8 .8 x 10.1 x 8.7 CM. No solid nodular components. 3. Differential considerations include ovarian cyst versus ovarian cystadenoma . Recommend [employer] consultation for resection considering size and bladder jamie carli. 4. No clear connection to the bladder to indicate bladder diverticulum. There appears to be a fat plane between the lesion and bladder. Consider performing p elvic ultrasound pre and post void to assess for change. 5. No pelvic or inguinal lymphadenopathy. 6. Uterus not visualized likely due to prior hysterectomy. Recommend correlati on with clinical history..
== END 2021-01-15 14:46 | disposition home or self-care (01) ==
LOC: RADSHAW 14:46
PROVIDERS: PCP Internal Medicine; Visit Provider Internal Medicine
DX: R93.5 Abnormal findings on diagnostic imaging of other abdominal regions, including retroperitoneum (principal); N83.209 Unspecified ovarian cyst, unspecified side
CPT/HCPCS: 72195

== ENCOUNTER → 2021-02-05 10:16 | Outpatient (BNVA) | payer MEDICARE, BC, SELFPAY | PROVIDERS: PCP Internal Medicine; Visit Provider Internal Medicine | DX: E83.51 Hypocalcemia; M81.0 Age-related osteoporosis without current pathological fracture; Z20.822 Contact with and (suspected) exposure to COVID-19 | CPT/HCPCS: 80053; 87635 ==

== ENCOUNTER 2021-02-07 06:54 | Outpatient (CLI) | payer MEDICARE, BC, SELFPAY ==
--- NOTE | 2021-02-07 08:40 | PFTS_ITS ---
Date of Study:02/07/21 Date of Dictation: 02/07/2021 MECHANICS: Prebronchodilator forced vital capacity (FVC) is normal. Prebronchodilator forced expiratory volume in one second (FEV1) is normal. FEV1/FVC is normal. FLOW VOLUME LOOP: Normal . LUNG VOLUMES: Not measured DIFFUSING CAPACITY FOR CARBON MONOXIDE: Not measured . INTERPRETATION: The prebronchodilator spirometry is normal. MTDD
== END 2021-02-07 06:55 | disposition home or self-care (01) ==
PROVIDERS: PCP Internal Medicine; Visit Provider Internal Medicine
DX: Z11.52 Encounter for screening for COVID-19 (principal)
CPT/HCPCS: 94010

== ENCOUNTER → 2021-02-09 08:57 | Outpatient (BNVA) | payer MEDICARE, BC, SELFPAY | PROVIDERS: PCP Internal Medicine; Visit Provider Internal Medicine | DX: E83.51 Hypocalcemia (principal) | CPT/HCPCS: 80048 ==

== ENCOUNTER 2021-02-10 00:58 | Inpatient (IN) | payer MEDICARE, BC, SELFPAY ==
[2021-02-10] VITALS (11 sets, daily range): BP systolic 136–203; BP diastolic 49–95; PULSE 68–120; RESP 14–28; TEMP 36.2–36.9; O2SAT 92–100; BMI 37.0
--- NOTE | 2021-02-10 01:26 | ED_ITS ---
HPI - Recheck/Abnormal Lab/Rx General: Chief Complaint: Recheck/Abnormal Lab/Rx Stated Complaint: Calcium Low-Sent by Dr Time Seen by Provider: 02/10/21 01:25 History of Present Illness: HPI narrative: Ms. Jeffers is an 81-year-old lady with complex medical history including thyroid disorder, hypoparathyroidism, hypocalcemia, PMR, CKD who presents emergency department due to abnormal labs. She reports being seen by her customer sales representative who referred her to the emergency department due to low calcium. She has a history of difficulty controlling her calcium. Most recently it has been down trending, despite increasing Tums intake it continues to decrease. She does not have perioral numbness or extremity tingling above baseline. She does endorse feeling mildly jittery today however she also recently increased steroids due to a flare of her PMR. No other specific changes in health, no infectious symptoms, baseline shortness of breath, no cough. No specific known provoking or exacerbating factors. No intensity of symptoms present Review of Systems General: Reports: 10 or more systems reviewed and unremarkable except in HPI and below PFSH ED PFSH: Medical History (Updated 02/12/21 @ 13:08 by Graeme Barba MD) CKD (chronic kidney disease) stage 3, GFR 30-59 ml/min Dyspepsia GERD (gastroesophageal reflux disease) Giant cell arteritis Heart failure Hypercalcemia Hypertension Hypocalcemia Hypoparathyroidism Immunization counseling Osteoporosis PMR (polymyalgia rheumatica) Right temporal headache Surgical History H/O thyroidectomy History of arthroscopy of right knee History of left hip replacement History of temporal artery biopsy (09/13/20) Status post colonoscopy Family History Father CAD (coronary artery disease) Prostate cancer Mother CAD (coronary artery disease) Sister Blood disorder Other Cancer Diabetes Hypertension Stroke Denies family history of Rheumatoid arthritis Systemic lupus erythematosus (SLE) in adult Social History Smoking and tobacco status: never smoked Alcohol intake: never History of recent travel: No Physical Exam Narrative: EXAM NARRATIVE: GENERAL/CONSTITUTIONAL - well-appearing. No acute distress. Eyes - PERRL, no conjunctival injection ENMT - Atraumatic external nose and ears. Moist mucous membranes NECK - supple. trachea midline CARDIOVASCULAR - regular rate and rhythm. Peripheral pulses 2+ and equal RESPIRATORY -clear to auscultation bilaterally. No retractions or accessory muscle use. ABDOMEN/GI - Nontender/Nondistended. MSK - Extremities without obvious deformity or tenderness to palpation SKIN - Warm, Dry NEURO - alert and appropriately oriented. Moves all extremities equally. No evidence of hypocalcemia on clinical exam testing. PSYCH - Appropriate mood and affect Course ED course: - Patient was seen and evaluated by me at bedside - Patient placed on cardiac monitors, IV access obtained - Initial evaluation notable for no acute distress, nontoxic appearance. - Labs notable for confirmed low calcium, low ionized calcium -Calcium ordered - Based on patient history, evaluation, labs, and imaging as interpreted the most likely cause of the patient's condition is known hypoparathyroidism - The results of ED evaluation were discussed with the patient including plan for admission due to requirement for level of care not available if discharged to prevent significant worsening/deterioration. -Hospitalist service contacted and agreed to admit the patient for observation - Patient was admitted without further deterioration or significant events. Vital Signs: Vital signs: Vital Signs Temperature 98.0 F 02/13/21 11:16 Pulse Rate 69 02/13/21 11:16 Respiratory Rate 17 02/13/21 11:16 Blood Pressure 152/82 02/13/21 11:16 Pulse Oximetry 94 02/13/21 11:16 MDM - Recheck/Abnormal Lab/Rx Medical Records: Attestation: I reviewed the patient's medical records. Lab Data: Attestation: I reviewed the patient's lab results. Labs: Lab Results 02/10/21 02/10/21 02/10/21 01:31 01:31 01:37 WBC 10.1 10^3/uL H 10 ^3/uL (4.0-10.0) RBC 3.50 10^6/uL L 10 ^6/uL (4.1-5.3) Hgb 12.3 g/dL g/dL (11.5-15.3) Hct 36.3 % L % (37.0-47.0) MCV 103.7 fl H fl (81-99) MCH 35.1 pg H pg (28.0-34.0) MCHC 33.9 g/dL g/dL (30.0-36.0) RDW 11.9 % L % (12.1-15.1) Plt Count 285 10^3/cmm 10^3 /cmm (130-400) MPV 9.0 fL fL (7.4-10.4) Neut % (Auto) 76.3 % % Lymph % (Auto) 13.9 % % Drew % (Auto) 8.3 % % Eos % (Auto) 0.2 % % Baso % (Auto) 0.1 % % Neut # (Auto) 7.68 10^3/uL 10^3 /uL (1.8-7.7) Lymph # (Auto) 1.4 10^3/uL 10^3/ uL (0.8-4.8) Drew # (Auto) 0.8 10^3/uL 10^3/ uL (0.2-0.9) Eos # (Auto) 0.0 10^3/uL 10^3/ uL (0.0-0.8) Baso # (Auto) 0.0 10^3/uL 10^3/ uL (0.0-0.1) Nucleated RBC % (a uto) 0 % % Nucleated RBCs # 0.0 /100WBC /100W BC Sodium 141 mmol/L mmol/L (136-145) Potassium 3.9 mmol/L mmol/L (3.5-5.1) Chloride 96 mmol/L L mmol/ L (98-107) Carbon Dioxide 28 mmol/L mmol/L (22-29) Anion Gap 20.9 H (5-19) BUN 28 mg/dL H mg/dL (8-23) Creatinine 1.5 mg/dL H mg/dL (0.5-0.9) GFR Calculation Not Reportable Glucose 92 mg/dL mg/dL (65-115) Calculated Osmolal ity 297 mOsm/kg H mOs m/kg (285-295) Calcium 6.7 mg/dL L mg/dL (8.5-10.5) Ionized Calcium Me as 0.8 mmol/L L mmol /L (1.1-1.4) Phosphorus 5.9 mg/dL H mg/dL (2.5-4.5) Magnesium 1.6 mg/dL L mg/dL (1.7-2.3) Total Bilirubin 0.5 mg/dL mg/dL (0.15-1.2) AST 21 U/L U/L (0-32) ALT 25 U/L U/L (0-33) Alkaline Phosphata se 58 IU/L IU/L (35-105) Total Protein 7.0 g/dL g/dL (6.6-8.7) Albumin 4.5 g/dL g/dL (3.5-5.2) Globulin 2.5 g/dL g/dL (1.3-4.6) TSH 0.16 uIU/mL L uIU /mL (0.27-4.20) Free T4 PTH Intact 13.0 pg/mL L pg/m L (15-65) Calcium (PTH Intac t) 6.7 mg/dL L mg/dL (8.5-10.5) 02/10/21 02/10/21 02/10/21 12:22 12:22 15:30 WBC RBC Hgb Hct MCV MCH MCHC RDW Plt Count MPV Neut % (Auto) Lymph % (Auto) Drew % (Auto) Eos % (Auto) Baso % (Auto) Neut # (Auto) Lymph # (Auto) Drew # (Auto) Eos # (Auto) Baso # (Auto) Nucleated RBC % (a uto) Nucleated RBCs # Sodium 139 mmol/L mmol/L (136-145) Potassium 3.7 mmol/L mmol/L (3.5-5.1) Chloride 97 mmol/L L mmol/ L (98-107) Carbon Dioxide 27 mmol/L mmol/L (22-29) Anion Gap 18.7 (5-19) BUN 25 mg/dL H mg/dL (8-23) Creatinine 1.3 mg/dL H mg/dL (0.5-0.9) GFR Calculation Not Reportable Glucose 96 mg/dL mg/dL (65-115) Calculated Osmolal ity 292 mOsm/kg mOsm/ kg (285-295) Calcium 6.6 mg/dL L mg/dL (8.5-10.5) Ionized Calcium Me as 0.8 mmol/L L mmol /L (1.1-1.4) Phosphorus Magnesium Total Bilirubin 0.4 mg/dL mg/dL (0.15-1.2) AST 20 U/L U/L (0-32) ALT 22 U/L U/L (0-33) Alkaline Phosphata se 44 IU/L IU/L (35-105) Total Protein 6.1 g/dL L g/dL (6.6-8.7) Albumin 4.2 g/dL g/dL (3.5-5.2) Globulin 1.9 g/dL g/dL (1.3-4.6) TSH Free T4 1.74 ng/dL ng/dL (0.82-1.77) PTH Intact Calcium (PTH Intac t) EKG Data^: EKG 1: Attestation: I personally reviewed and interpreted this EKG as follows: EKG interpretation date: 02/10/21 EKG interpretation time: 02:10 Interpretation: Twelve-lead EKG shows a regular rhythm at a rate of 73. VT interval 159, QRS duration 74, QTc 466. Normal axis. Interpretation: Sinus rhythm. Mildly limited interpretation due to baseline artifact in inferior leads and high lateral leads. Discharge Plan Discharge Patient Disposition: Admitted As Inpatient Admit Provider: Rosendo Mehta Condition: Stable Discharge Diet: Cardiac Discharge Activity: Increase activity as tolerated Coding Level of Care Code ED It Applications Manager for [email or web address]
--- NOTE | 2021-02-10 01:28 | ECG_ITS ---
[facility] Test Date: 2021-02-10 Pat Name: Maggie Jeffers Department: Room: Gender: Female Lead Instructor/Flight Attendant: : 1940 Requested By: Ernst Henderson Order Number: [id number] Teresa MD: Sridevi Vila M.D. Measurements Intervals [place] Rate: 73 P: 38 [place]: 159 QRS: 24 QRSD: 74 T: 48 QT: 422 QTc: 466 Interpretive Statements SINUS RHYTHM LOW QRS VOLTAGE IN PRECORDIAL LEADS [QRS DEFLECTION < 1.0 mV IN CHEST LEADS] SEPTAL MYOCARDIAL INFARCTION , PROBABLY OLD [40+ ms Q WAVE IN V1/V2] Compared to ECG 11/30/2020 17:16:42 No significant changes Electronically Signed On 02-10-2021 12:23:19 CDT by Sridevi Vila M.D. [id number]
[2021-02-10 01:42] LABS: Basophils % 0.1 %; Eosinophils % 0.2 %; Hematocrit 36.3 % (37.0-47.0); Hemoglobin 12.3 g/dL (11.5-15.3); Lymphocytes # 1.4 10^3/uL (0.8-4.8); Lymphocytes % 13.9 %; Mean Corpuscular HGB Conc 33.9 g/dL (30.0-36.0); Mean Corpuscular Hemoglobin 35.1 pg (28.0-34.0); Mean Corpuscular Volume 103.7 fl (81-99); Monocytes # 0.8 10^3/uL (0.2-0.9); Monocytes % 8.3 %; Neutrophils # 7.68 10^3/uL (1.8-7.7); Neutrophils % 76.3 %; Nucleated Red Blood Cells % 0 %; Platelet Count 285 10^3/cmm (130-400); Red Cell Distribution Width 11.9 % (12.1-15.1); White Blood Count 10.1 10^3/uL (4.0-10.0)
[2021-02-10 02:11] LABS: Alanine Aminotransferase 25 U/L (0-33); Albumin Level 4.5 g/dL (3.5-5.2); Alkaline Phosphatase 58 IU/L (35-105); Anion Gap 20.9 (5-19); Aspartate Amino Transferase 21 U/L (0-32); Blood Urea Nitrogen 28 mg/dL (8-23); Calcium 6.7 mg/dL (8.5-10.5); Carbon Dioxide 28 mmol/L (22-29); Chloride 96 mmol/L (98-107); Globulin 2.5 g/dL (1.3-4.6); Glucose 92 mg/dL (65-115); Magnesium 1.6 mg/dL (1.7-2.3); Osmolality Calculated 297 mOsm/kg (285-295); Phosphorus 5.9 mg/dL (2.5-4.5); Potassium 3.9 mmol/L (3.5-5.1); Sodium 141 mmol/L (136-145); Total Bilirubin 0.5 mg/dL (0.15-1.2)
[2021-02-10 03:10] LABS: Thyroid Stimulating Hormone 0.16 uIU/mL (0.27-4.20)
[2021-02-10 03:15] LABS: Ionized Calcium 0.8 mmol/L (1.1-1.4)
[2021-02-10] MEDS: calcium gluconate 0.1 gm/mL 10% SDV 10mL 1 GM IVP ×2 (03:52→17:21)
[2021-02-10] MEDS: sodium chloride 0.9% (100 ml) 100 ML 300 ML (04:02)
[2021-02-10 04:40] LABS: Calcium 6.7 mg/dL (8.5-10.5)
--- NOTE | 2021-02-10 04:49 | PC.NURSE ---
Discharge assessment at 04:37 02/10/2021, charted in error on wrong chart.
--- NOTE | 2021-02-10 05:23 | PM.HP ---
Providers/Chief Complaint Primary Care Provider: Leti Ocasio MD Chief Complaint: Calcium Low-Sent by History of Present Illness 81-year-old female with past medical history significant for hypertension, hyperlipidemia, chronic stage 3 kidney disease with baseline around 1.3, hypothyroidism, gastroesophageal reflux disease, obstructive sleep apnea, osteoporosis, polymyalgia rheumatica, giant cell arteritis on actemra, chronic prednisone, chronic diastolic heart failure on p.r.n. Lasix, recent dx of cystic mass with plan for surgery at [facility], hypothyroidism, hyperparathyroidism with subsequent parathyroidectomy and hypocalcemia was directed to the hospital today for treatment of hypocalcemia. This was noted on routine blood work ordered outpatient by endocrinology. Patient stated that she was feeling somewhat anxious however attributed to increase in recent prednisone dose by rheumatology. Otherwise, did not have any new complaints. Denied recent fever, chills, nausea vomiting. Denies chest pain or shortness of breath. Laboratory workup on arrival showed a WBC of 10.1, hemoglobin of 12.3, hematocrit of 36.3 and platelet count of 285. Sodium 141, potassium 3.9, chloride 96, bicarb 28, BUN 28 and creatinine 1.5. Most recent creatinine was noted to be 1.2 on 02/09. Calcium level of 6.7. Ionized calcium of 0.8. Phosphorus of 5.9. Magnesium 1.6. Albumin of 4.5. TSH is 0.16. PTH intact of 13.0. In emergency room patient was given calcium gluconate and magnesium sulfate. Review of Systems General: Reports: 10 or more systems reviewed and unremarkable except in HPI and below Medications/Allergies Home Medications Medication Instructions Recorded Confirmed Last Taken Type pantoprazole 40 mg tablet,delayed 40 mg PO DAILY 09/09/19 12/28/20 11/30/20 History release acetaminophen 500 mg tablet 1,000 mg PO TID 01/12/20 12/28/20 11/30/20 History aspirin 81 mg tablet,delayed 81 mg PO DAILY 01/12/20 12/28/20 11/30/20 History release rosuvastatin 5 mg tablet 5 mg PO DAILY 01/12/20 12/28/20 11/30/20 History calcitriol 0.25 mcg capsule 0.25 mcg PO DAILY #90 cap 01/31/20 12/28/20 11/30/20 Rx levothyroxine 88 mcg tablet 88 mcg PO DAILY 90 Days #100 tab 07/11/20 12/28/20 11/30/20 Rx calcium carbonate 300 mg (750 mg) 300 mg PO DAILY 11/07/20 12/28/20 11/30/20 History chewable tablet furosemide 40 mg tablet See Rx Instructions PO .COMPLEX 11/07/20 12/28/20 Unknown History gabapentin 300 mg capsule 300 mg PO TID #90 cap 11/07/20 12/28/20 11/30/20 Rx potassium chloride 10 mEq 10 meq PO DAILY 11/07/20 12/28/20 11/30/20 History tablet,extended release levocetirizine 5 mg PO DAILY 11/30/20 12/28/20 11/30/20 History multivitamin with minerals 1 tab PO DAILY 11/30/20 12/28/20 11/30/20 History carvedilol 3.125 mg tablet 3.125 mg PO BID 12/28/20 12/28/20 Unknown History prednisone 20 mg tablet 10 mg PO DAILY tab 12/28/20 12/28/20 Unknown History abatacept 125 mg/mL subcutaneous 125 mg SUBCUT .Q7days #4 ml 02/07/21 Unknown Rx auto-injector Allergies Allergy/AdvReac Type Severity Reaction Status Date / Time adhesive Allergy Rash Verified 12/06/20 09:56 PFSH Acute PFSH: Medical History (Updated 02/10/21 @ 05:35 by Rosendo Mehta MD) CKD (chronic kidney disease) stage 3, GFR 30-59 ml/min GERD (gastroesophageal reflux disease) Giant cell arteritis Hypercalcemia Hypertension Hypocalcemia Hypoparathyroidism Immunization counseling Osteoporosis PMR (polymyalgia rheumatica) Right temporal headache Surgical History H/O thyroidectomy History of arthroscopy of right knee History of left hip replacement History of temporal artery biopsy (09/13/20) Status post colonoscopy Family History Father CAD (coronary artery disease) Prostate cancer Mother CAD (coronary artery disease) Sister Blood disorder Other Cancer Diabetes Hypertension Stroke Denies family history of Rheumatoid arthritis Systemic lupus erythematosus (SLE) in adult Social History Smoking and tobacco status: never smoked Alcohol intake: never History of recent travel: No Vitals/I&O/Wt Last Vital Signs Temp 97.1 F L 02/10/21 01:11 Pulse 71 02/10/21 04:51 Resp 18 02/10/21 04:51 BP 166/73 02/10/21 04:51 Pulse Ox 95 02/10/21 04:51 Weight last 48 hrs Weight 86.183 kg Physical Exam Narrative: EXAM NARRATIVE: General -alert awake and oriented HEENT -grossly unremarkable CVS-regular rhythm Abdomen-soft nontender nondistended Extremities-no edema Data : 02/10/21 01:31 02/10/21 01:31 A&P Assessment and plan (1) Hypomagnesemia: Status: Acute (2) Acute worsening of stage 3 chronic kidney disease: Status: Acute (3) Hypoparathyroidism: Status: Acute (4) PMR (polymyalgia rheumatica): Status: Acute (5) Giant cell arteritis: Status: Acute Additional A&P Information Hypoparathyroidism with hypocalcemia Calcium 6.7, PTH 1(low), ionized 0.8, albumin 4.5 S/p calcium gluconate in ER Calcitriol 0.25 mcg PO daily Calcium carbonate 500 mg PO TID Consult with endocrinology in am if available Repeat Lab in AM Hypomagnesemia Mag Sulfate 1g IVx 1 Repeat mg level in am Hypothyroidism TSH low Recent increase to 88mcg po daily Decreased to 75 mcg po daily Repeat TSH outpatient Acute on chronic stage 3 kidney disease Creatinine 1.2 on 02.09.21 Increased slightly to 1.5 IVF Repeat BMP in am Renal dosing of meds Holding Lasix Polymyalgia Rheumatica / GCA Resume Prednisone 20 mg PO daily Follow up with rheumatology outpatient Peripheral Neuropathy Gabapentin 300 mg PO TID DVT ppx Heparin 5000 units q12h Attestations Medical Necessity Statement*: Anticipate less than 2 midnight stay in hospital for eval and treatment Time Spent in Patient Care: Greater than 35 minutes (>than 50% of time spent in counselling and/or direct pt care on unit). Coding Level of Care Code Acute Technologies Division Chair for Sergio Hodge Diagnoses Hypomagnesemia E83.42 Acute worsening of stage 3 chronic kidney disease N18.30 Hypoparathyroidism E20.9 PMR (polymyalgia rheumatica) M35.3 Giant cell arteritis M31.6
[2021-02-10] MEDS: heparin 5,000 unit/mL INJ 1 mL 5000 UNIT SUBCUT ×2 (06:00→17:21)
[2021-02-10] MEDS: levothyroxine 75 mcg Tablet PO (09:07)
[2021-02-10] MEDS: pantoprazole DR 40 mg Tablet PO (09:07)
[2021-02-10] MEDS: gabapentin 300 mg Capsule PO ×3 (09:07→21:11)
[2021-02-10] MEDS: predniSONE 20 mg Tablet PO (09:07)
[2021-02-10] MEDS: aspirin 81 mg EC Tablet PO (09:07)
[2021-02-10] MEDS: calcium carbonate 500 mg Chew Tablet PO ×2 (09:07→17:22)
[2021-02-10] MEDS: calcitriol 0.25 mcg Capsule PO (09:07)
[2021-02-10] MEDS: acetaminophen 325 mg Tablet 650 MG PO (09:10)
[2021-02-10] MEDS: carvedilol 3.125 mg Tablet PO ×2 (09:10→21:11)
[2021-02-10] MEDS: sodium chloride 0.9% 1,000 ML 75 ML IV (09:13)
[2021-02-10] MEDS: FUROsemide 40 mg Tablet PO (10:15)
--- NOTE | 2021-02-10 12:20 | PM.PN ---
Subjective Subjective: Interval history: Seen and examined this morning. Patient is asymptomatic. She was seen in the presence of her daughter at bedside. She states her calcium does fluctuate into highs and lows depending on her medications. She was sent here by her adult protective caseworker for correction of calcium. She has no complaints to offer at this time. Vitals/I&O/Wt Last Vital Signs Temp 98.4 F 02/10/21 11:26 Pulse 75 02/10/21 11:26 Resp 16 02/10/21 11:26 BP 136/73 02/10/21 11:26 Pulse Ox 94 02/10/21 11:26 02/09/21 02/10/21 02/10/21 22:59 06:59 14:59 Intake Total 152 / 152 Balance 152 / 152 Weight last 48 hrs Weight 86.183 kg Weight 86.183 kg Physical Exam Narrative: EXAM NARRATIVE: General: Alert oriented x3, patient seen sitting up in bed. HEENT: Normocephalic, atraumatic, EOMI, breathing normally, no perioral numbness. Cardio: Regular rate rhythm, normal S1-S2, no murmurs rubs gallops, Respiratory: Good bilateral air entry, no wheezes no rhonchi appreciated GI: Abdomen soft, nontender, nondistended, bowel sounds + Behavior: Appropriate and cooperative Extremities: no edema, no cyanosis Data : 02/10/21 01:31 02/10/21 12:22 A&P Assessment and plan (1) Hypomagnesemia: Status: Acute (2) Giant cell arteritis: Status: Acute (3) Chronic steroid use: Status: Acute (4) Hypoparathyroidism: Status: Acute (5) Hypocalcemia: Status: Acute (6) CKD (chronic kidney disease) stage 3, GFR 30-59 ml/min: Status: Acute Additional A&P Information Hypoparathyroidism with hypocalcemia Calcium 6.7, PTH 1(low), ionized 0.8, albumin 4.5 S/p calcium gluconate in ER Calcitriol 0.25 mcg PO daily - As per endo recommendations Calcium carbonate 500 mg PO BID - As per endo recommendations Discussed with endocrinology over the phone. Patient has history of fluctuating calcium levels and infact has been admitted for hypercalemia in the past as well. We need to be cautious while repleting. Repeat labs show 6.6 calcium. Albumin is normal. Will order calcium gluconate 1 gm x1 again and recheck labs around 11 pm. Will follow endo recs and get clearance prior to discharge. Hypomagnesemia Mag Sulfate 2g to be given again. Still low at 1.5 Repeat mg level in am Hypothyroidism TSH low Recent increase to 88mcg po daily Decreased to 75 mcg po daily Repeat TSH outpatient Acute on chronic stage 3 kidney disease Creatinine 1.2 on 02.09.21 Increased slightly to 1.5 at admission. Now at 1.3 again. IVF were ordered but will discontinue as they will decrease calcium further. Will watch renal function for now. Repeat BMP in am Renal dosing of meds Continue to holding Lasix Polymyalgia Rheumatica / GCA Resume Prednisone 20 mg PO daily Follow up with rheumatology outpatient Peripheral Neuropathy Gabapentin 300 mg PO TID DVT ppx Heparin 5000 units q12h Attestations Medical Necessity Statement*: will need > 2 midnights due to uncorrected calcium levels. Time Spent in Patient Care: 16 - 35 minutes (>than 50% of time spent in counselling and/or direct pt care on unit). Coding Level of Care Code Acute Manager Inpatient for Sergio Hodge Diagnoses Hypomagnesemia E83.42 Giant cell arteritis M31.6 Chronic steroid use Hypoparathyroidism E20.9 Hypocalcemia E83.51 CKD (chronic kidney disease) stage 3, GFR 30-59 ml/min N18.3
[2021-02-10 13:10] LABS: Alanine Aminotransferase 22 U/L (0-33); Albumin Level 4.2 g/dL (3.5-5.2); Alkaline Phosphatase 44 IU/L (35-105); Anion Gap 18.7 (5-19); Aspartate Amino Transferase 20 U/L (0-32); Blood Urea Nitrogen 25 mg/dL (8-23); Calcium 6.6 mg/dL (8.5-10.5); Carbon Dioxide 27 mmol/L (22-29); Chloride 97 mmol/L (98-107); Globulin 1.9 g/dL (1.3-4.6); Glucose 96 mg/dL (65-115); Osmolality Calculated 292 mOsm/kg (285-295); Potassium 3.7 mmol/L (3.5-5.1); Sodium 139 mmol/L (136-145); Total Bilirubin 0.4 mg/dL (0.15-1.2); Total Protein 6.1 g/dL (6.6-8.7)
[2021-02-10 14:53] LABS: Free T4 Free Thyroxine 1.74 ng/dL (0.82-1.77)
[2021-02-10 15:41] LABS: Ionized Calcium 0.8 mmol/L (1.1-1.4)
[2021-02-10] MEDS: atorvastatin 40 mg Tablet 20 MG PO (21:10)
[2021-02-10 23:38] LABS: Alanine Aminotransferase 19 U/L (0-33); Alkaline Phosphatase 43 IU/L (35-105); Aspartate Amino Transferase 17 U/L (0-32); Blood Urea Nitrogen 31 mg/dL (8-23); Calcium 7.1 mg/dL (8.5-10.5); Carbon Dioxide 27 mmol/L (22-29); Chloride 98 mmol/L (98-107); Globulin 2.1 g/dL (1.3-4.6); Glucose 108 mg/dL (65-115); Osmolality Calculated 297 mOsm/kg (285-295); Sodium 140 mmol/L (136-145); Total Bilirubin 0.4 mg/dL (0.15-1.2); Total Protein 6.1 g/dL (6.6-8.7)
[2021-02-11] VITALS (8 sets, daily range): BP systolic 116–154; BP diastolic 46–80; PULSE 64–92; RESP 16–18; TEMP 36.4–36.9; O2SAT 93–96
[2021-02-11 05:41] LABS: Basophils % 0.3 %; Eosinophils # 0.1 10^3/uL (0.0-0.8); Eosinophils % 0.8 %; Hematocrit 32.8 % (37.0-47.0); Hemoglobin 10.9 g/dL (11.5-15.3); Lymphocytes # 2.1 10^3/uL (0.8-4.8); Lymphocytes % 21.3 %; Mean Corpuscular HGB Conc 33.2 g/dL (30.0-36.0); Mean Corpuscular Hemoglobin 34.7 pg (28.0-34.0); Mean Corpuscular Volume 104.5 fl (81-99); Monocytes # 0.9 10^3/uL (0.2-0.9); Monocytes % 9.1 %; Neutrophils # 6.57 10^3/uL (1.8-7.7); Neutrophils % 67.7 %; Nucleated Red Blood Cells % 0 %; Platelet Count 257 10^3/cmm (130-400); Red Blood Count 3.14 10^6/uL (4.1-5.3); Red Cell Distribution Width 11.8 % (12.1-15.1); White Blood Count 9.7 10^3/uL (4.0-10.0)
[2021-02-11 06:02] LABS: Alanine Aminotransferase 20 U/L (0-33); Alkaline Phosphatase 40 IU/L (35-105); Blood Urea Nitrogen 31 mg/dL (8-23); Carbon Dioxide 30 mmol/L (22-29); Chloride 99 mmol/L (98-107); Globulin 2.2 g/dL (1.3-4.6); Glucose 87 mg/dL (65-115); Magnesium 1.9 mg/dL (1.7-2.3); Osmolality Calculated 300 mOsm/kg (285-295); Sodium 142 mmol/L (136-145); Total Bilirubin 0.4 mg/dL (0.15-1.2); Total Protein 6.2 g/dL (6.6-8.7)
[2021-02-11 06:05] LABS: Anion Gap 16.6 (5-19); Aspartate Amino Transferase 22 U/L (0-32); Potassium 3.6 mmol/L (3.5-5.1)
[2021-02-11] MEDS: heparin 5,000 unit/mL INJ 1 mL 5000 UNIT SUBCUT ×2 (06:19→19:05)
[2021-02-11] MEDS: calcium carbonate 500 mg Chew Tablet PO ×2 (08:38→19:06)
[2021-02-11] MEDS: aspirin 81 mg EC Tablet PO (08:38)
[2021-02-11] MEDS: calcitriol 0.25 mcg Capsule PO (08:38)
[2021-02-11] MEDS: carvedilol 3.125 mg Tablet PO ×2 (08:38→20:21)
[2021-02-11] MEDS: predniSONE 20 mg Tablet PO (08:39)
[2021-02-11] MEDS: potassium chloride ER 10 mEq Tablet PO (08:39)
[2021-02-11] MEDS: FUROsemide 40 mg Tablet PO (08:39)
[2021-02-11] MEDS: levothyroxine 75 mcg Tablet PO (08:39)
[2021-02-11] MEDS: pantoprazole DR 40 mg Tablet PO (08:39)
[2021-02-11] MEDS: gabapentin 300 mg Capsule PO ×3 (08:39→20:21)
[2021-02-11] MEDS: calcium gluconate 0.1 gm/mL 10% SDV 10mL 1 GM IVP ×2 (09:00→20:20)
--- NOTE | 2021-02-11 10:39 | PC.CHAP ---
Pastoral Care Encounter/Spiritual Assessment Type of Contact [] Declined theatre instructor visit [] Patient/Family/Request visit [] Outpatient visit [] Follow-up visit [] Physician referral [] Code/Alert [X] Routine visit [] Staff referral [] Actively dying [] Patient sleeping [] Family support [] [] Out of room [] Palliative care [] [] Receiving care in room [] Pre-surgical visit [] Trauma [] Long length of stay [] ICU visit [X] Other: daughter in the room and present for visit Relational/Emotional Strength [X] Patient feels connected with others/family/visitors/staff [] Distress [] Loneliness/isolation [] Abandonment Spirituality of Patient [] Person of Libia [] Attends Episcopal of their Libia [] Believes in Prayer [X] Reads Bible or Caodaism materials [X] There are Spiritual issues to be addressed Nylon Mender Interventions [] Prayer [X] Active listening [X] Non-anxious presence [] Spiritual/emotional support [] Crisis/trauma care [] Spiritual counseling [] Bereavement support [] Provided bereavement packet [X] Provided Bible/devotional materials [] Provided toy/stuffed animal, coloring book to patient or family member [] Provided Communion [] Anointing/[place] [] Salvation [X] Completed spiritual assessment [] Other: Impact on Illness or Injury [] Angry [] Fearful [] Anxious [] Often cries [] Exhaustion [] Unable to work [] Unable to attend tenriism [] Unable to walk/stand [] Unable to read [] Unable to drive [] Unable to eat/drink [] Unable to sleep [] Unable to be with family [] Patient intubated [] Other: Summary: Pt is a jovial woman who looks and acts younger than her age. Pt enjoyed the visit and readily accepted the Daily Bread. Visit focused on what happened to put her in the hospital, what the plan is (yet tbd), her support system, and her libia. She reports a strong support system through her two daughters and friends. (Pt plays the ramos guitar) Pt does not report attending evangelical but was receptive to devotional material stating that she loved those and will play her guitar at her daughter's evangelical on special occasions. Pt's humor and perhaps the presence of her daughter kept further exploration from happening re: pt's libia, at present. Time spent with patient: 15 mins
--- NOTE | 2021-02-11 14:03 | PM.PN ---
Subjective Subjective: Interval history: Seen and examined this morning. No acute events overnight. She is asymptomatic as yesterday. Calcium has come up to 7.0. She got another dose of calcium gluconate this morning. Repeat labs are due at 2 PM. Vitals/I&O/Wt Last Vital Signs Temp 97.9 F 02/11/21 12:00 Pulse 82 02/11/21 12:00 Resp 17 02/11/21 12:00 BP 154/80 02/11/21 12:00 Pulse Ox 93 02/11/21 12:00 02/10/21 02/11/21 02/11/21 22:59 06:59 14:59 Intake Total 240 / 616.25 420 / 1036.25 640 / 640 Output Total 1180 / 2680 Balance 240 / -883.75 -760 / -1643.75 640 / 640 Weight last 48 hrs Weight 86.183 kg Weight 86.183 kg Physical Exam Narrative: EXAM NARRATIVE: General: Alert oriented x3, patient seen sitting up in bed. HEENT: Normocephalic, atraumatic, EOMI, breathing normally, no perioral numbness. Cardio: Regular rate rhythm, normal S1-S2, no murmurs rubs gallops, Respiratory: Good bilateral air entry, no wheezes no rhonchi appreciated GI: Abdomen soft, nontender, nondistended, bowel sounds + Behavior: Appropriate and cooperative Extremities: no edema, no cyanosis Data : 02/11/21 05:10 02/11/21 05:10 A&P Assessment and plan (1) Hypomagnesemia: Status: Acute (2) Giant cell arteritis: Status: Acute (3) Chronic steroid use: Status: Acute (4) Hypoparathyroidism: Status: Acute (5) Hypocalcemia: Status: Acute (6) CKD (chronic kidney disease) stage 3, GFR 30-59 ml/min: Status: Acute Additional A&P Information Hypoparathyroidism with hypocalcemia Calcium 6.7, PTH 1(low), ionized 0.8, albumin 4.5 S/p calcium gluconate in ER Calcitriol 0.25 mcg PO daily - As per endo recommendations Calcium carbonate 500 mg PO BID - As per endo recommendations Discussed with endocrinology over the phone. Patient has history of fluctuating calcium levels and infact has been admitted for hypercalemia in the past as well. We need to be cautious while repleting. Albumin is normal. Will order calcium gluconate 1 gm x1 again and recheck labs around 2 PM. Will check calcium every 6 hours and give 1 g calcium gluconate until calcium comes up above 8.5. Will follow endo recs and get clearance prior to discharge. Hypomagnesemia Replete as needed. Repeat mg level in am Hypothyroidism TSH low Recent increase to 88mcg po daily Decreased to 75 mcg po daily Repeat TSH outpatient Acute on chronic stage 3 kidney disease Creatinine 1.2 on 02.09.21 Increased slightly to 1.5 at admission. Went down to 1.3 and now 1.6 again. I will start patient on low rate normal saline. Repeat BMP in am Renal dosing of meds Continue to holding Lasix Polymyalgia Rheumatica / GCA Resume Prednisone 20 mg PO daily Follow up with rheumatology outpatient Peripheral Neuropathy Gabapentin 300 mg PO TID DVT ppx Heparin 5000 units q12h Attestations Medical Necessity Statement*: Anticipate additional 24-hour stay at this point. Time Spent in Patient Care: less than 15 minutes Coding Level of Care Code Acute Flat Sorting Machine Clerk for Chg Fwd Diagnoses Hypomagnesemia E83.42 Giant cell arteritis M31.6 Chronic steroid use Hypoparathyroidism E20.9 Hypocalcemia E83.51 CKD (chronic kidney disease) stage 3, GFR 30-59 ml/min N18.3
[2021-02-11] MEDS: potassium chloride oral liq 20 mEq/15 mL UDC PO (14:40)
[2021-02-11] MEDS: sodium chloride 0.9% 1,000 ML 75 ML IV (14:42)
[2021-02-11 17:34] LABS: Calcium 7.9 mg/dL (8.5-10.5)
--- NOTE | 2021-02-11 19:59 | PC.NURSE ---
i reported low temp 97.5 to nurse
[2021-02-11] MEDS: atorvastatin 40 mg Tablet 20 MG PO (20:21)
[2021-02-12] VITALS (9 sets, daily range): BP systolic 138–156; BP diastolic 66–79; PULSE 64–83; RESP 16–19; TEMP 36.3–36.7; O2SAT 92–95
[2021-02-12] MEDS: heparin 5,000 unit/mL INJ 1 mL 5000 UNIT SUBCUT ×2 (04:32→16:23)
[2021-02-12] MEDS: sodium chloride 0.9% 1,000 ML 75 ML IV (04:33)
[2021-02-12 06:09] LABS: Basophils % 0.2 %; Eosinophils # 0.1 10^3/uL (0.0-0.8); Eosinophils % 0.8 %; Hematocrit 33.8 % (37.0-47.0); Hemoglobin 11.4 g/dL (11.5-15.3); Lymphocytes % 19.2 %; Mean Corpuscular HGB Conc 33.7 g/dL (30.0-36.0); Mean Corpuscular Hemoglobin 34.9 pg (28.0-34.0); Mean Corpuscular Volume 103.4 fl (81-99); Mean Platelet Volume 10.1 fL (7.4-10.4); Monocytes % 9.3 %; Neutrophils # 7.35 10^3/uL (1.8-7.7); Neutrophils % 69.6 %; Nucleated Red Blood Cells % 0 %; Platelet Count 206 10^3/cmm (130-400); Red Blood Count 3.27 10^6/uL (4.1-5.3); Red Cell Distribution Width 11.9 % (12.1-15.1); White Blood Count 10.5 10^3/uL (4.0-10.0)
[2021-02-12 06:31] LABS: Slide Review Slide Review Perform
[2021-02-12 06:36] LABS: Alanine Aminotransferase 18 U/L (0-33); Albumin Level 3.9 g/dL (3.5-5.2); Alkaline Phosphatase 40 IU/L (35-105); Anion Gap 16.5 (5-19); Aspartate Amino Transferase 18 U/L (0-32); Blood Urea Nitrogen 36 mg/dL (8-23); Carbon Dioxide 27 mmol/L (22-29); Chloride 101 mmol/L (98-107); Glucose 87 mg/dL (65-115); Magnesium 1.8 mg/dL (1.7-2.3); Osmolality Calculated 300 mOsm/kg (285-295); Potassium 3.5 mmol/L (3.5-5.1); Sodium 141 mmol/L (136-145); Total Bilirubin 0.4 mg/dL (0.15-1.2); Total Protein 5.9 g/dL (6.6-8.7)
[2021-02-12] MEDS: potassium chloride ER 10 mEq Tablet PO (08:04)
[2021-02-12] MEDS: carvedilol 3.125 mg Tablet PO ×2 (08:04→21:47)
[2021-02-12] MEDS: calcium carbonate 500 mg Chew Tablet PO ×2 (08:04→16:23)
[2021-02-12] MEDS: levothyroxine 75 mcg Tablet PO (08:04)
[2021-02-12] MEDS: predniSONE 20 mg Tablet PO (08:04)
[2021-02-12] MEDS: calcitriol 0.25 mcg Capsule PO (08:04)
[2021-02-12] MEDS: aspirin 81 mg EC Tablet PO (08:04)
[2021-02-12] MEDS: FUROsemide 40 mg Tablet PO (08:04)
[2021-02-12] MEDS: pantoprazole DR 40 mg Tablet PO (08:04)
[2021-02-12] MEDS: gabapentin 300 mg Capsule PO ×3 (08:05→21:48)
--- NOTE | 2021-02-12 13:06 | PM.PN ---
Subjective Subjective: Interval history: Patient states that her leg cramps are chronic and she has not noticed any acute worsening otherwise no acute events overnight no active pain abdominal pain or spasm of her hands Calcium today 8.0 she was given 1 g calcium gluconate this morning Vitals/I&O/Wt Last Vital Signs Temp 98.1 F 02/12/21 11:05 Pulse 71 02/12/21 11:05 Resp 16 02/12/21 11:05 BP 155/79 02/12/21 11:05 Pulse Ox 95 02/12/21 11:05 02/11/21 02/12/21 02/12/21 22:59 06:59 14:59 Intake Total 360 / 1000 1000 / 2000 540 / 540 Output Total 1000 / 1000 680 / 680 Balance -640 / 0 1000 / 1000 -140 / -140 Physical Exam Narrative: EXAM NARRATIVE: Patient was sitting comfortably in her chair Saturating well on room air Bilateral breath sounds S1, S2 Abdomen soft nontender visceral obesity Lower extremity trace edema No active neurological deficits Appropriate mood and affect Family at the bedside Data : 02/12/21 05:05 02/12/21 05:05 A&P Assessment and plan (1) Post-surgical hypothyroidism: Status: Acute (2) Post-surgical hypoparathyroidism: Status: Acute (3) Hypocalcemia: Status: Acute (4) Hypoparathyroidism: Status: Acute (5) Hypomagnesemia: Status: Acute Additional A&P Information Hyperparathyroidism associated hypercalcemia Calcium today 8.0 Plan to discharge once calcium around 8.5 She will go home on calcitriol 0.25 daily and calcium carbonate 500 mg twice daily and prescription for ionized calcium to be checked within 2 days No active hypocalcemic signs or symptoms Acute on chronic kidney disease stage III improved with IV fluid hydration, creatinine seems to be around baseline now Hypomagnesemia: Continue magnesium oral supplementation, Continue prednisone which she takes for GCA/PMR DVT prophylaxis Heparin Cardiac diet Attestations Medical Necessity Statement*: Continue medical management for hypercalcemia Time Spent in Patient Care: less than 15 minutes Planning to discharge tomorrow Coding Level of Care Code Acute Nursing Surgical Services Director for Chg Fwd Diagnoses Post-surgical hypothyroidism E89.0 Post-surgical hypoparathyroidism E89.2 Hypocalcemia E83.51 Hypoparathyroidism E20.9 Hypomagnesemia E83.42
[2021-02-12] MEDS: magnesium oxide 400 mg tablet PO ×2 (14:06→16:23)
[2021-02-12] MEDS: calcium gluconate 0.1 gm/mL 10% SDV 10mL 1 GM IVP (17:01)
[2021-02-12] MEDS: atorvastatin 40 mg Tablet 20 MG PO (21:46)
[2021-02-12] MEDS: acetaminophen 325 mg Tablet 650 MG PO (21:47)
[2021-02-12 21:48] LABS: Calcium 8.6 mg/dL (8.5-10.5)
[2021-02-13] VITALS: BP 130/61; PULSE 81; RESP 17; TEMP 36.7; O2SAT 93
[2021-02-13 04:00] VITALS: BP 126/60; PULSE 79; RESP 17; TEMP 36.6; O2SAT 92
[2021-02-13] MEDS: heparin 5,000 unit/mL INJ 1 mL 5000 UNIT SUBCUT (05:39)
[2021-02-13 06:26] LABS: Alanine Aminotransferase 19 U/L (0-33); Albumin Level 4.1 g/dL (3.5-5.2); Alkaline Phosphatase 39 IU/L (35-105); Aspartate Amino Transferase 18 U/L (0-32); Blood Urea Nitrogen 39 mg/dL (8-23); Calcium 8.6 mg/dL (8.5-10.5); Carbon Dioxide 30 mmol/L (22-29); Chloride 100 mmol/L (98-107); Glucose 89 mg/dL (65-115); Magnesium 2.1 mg/dL (1.7-2.3); Osmolality Calculated 301 mOsm/kg (285-295); Sodium 141 mmol/L (136-145); Total Bilirubin 0.4 mg/dL (0.15-1.2); Total Protein 6.1 g/dL (6.6-8.7)
[2021-02-13 08:00] VITALS: BP 112/70; PULSE 68; RESP 18; TEMP 37.1; O2SAT 98
[2021-02-13] MEDS: calcitriol 0.25 mcg Capsule PO (08:03)
[2021-02-13] MEDS: calcium carbonate 500 mg Chew Tablet PO (08:03)
[2021-02-13] MEDS: magnesium oxide 400 mg tablet PO (08:03)
[2021-02-13] MEDS: levothyroxine 75 mcg Tablet PO (08:03)
[2021-02-13] MEDS: carvedilol 3.125 mg Tablet PO (08:03)
[2021-02-13] MEDS: gabapentin 300 mg Capsule PO (08:04)
[2021-02-13] MEDS: aspirin 81 mg EC Tablet PO (08:04)
[2021-02-13] MEDS: predniSONE 20 mg Tablet PO (08:04)
[2021-02-13] MEDS: potassium chloride ER 10 mEq Tablet PO (08:04)
[2021-02-13] MEDS: pantoprazole DR 40 mg Tablet PO (08:04)
--- NOTE | 2021-02-13 10:38 | PC.SOCIAL ---
IMM Update Pg. 2 of [facility] updated and reviewed with patient who verbalized understanding, copy provided.
--- NOTE | 2021-02-13 10:54 | PM.DCS ---
Discharge Providers Date of Admission: 02/10/21 20:16 Date of Discharge: February 13, 2021 Attending Provider at Admission: Rosendo Mehta Attending Provider at Discharge: Graeme Barba MD Primary Care Provider: Leti Ocasio MD Diagnoses at Discharge Discharge Diagnosis (1) Post-surgical hypothyroidism: Status: Acute (2) Post-surgical hypoparathyroidism: Status: Acute (3) Hypocalcemia: Status: Acute (4) Hypoparathyroidism: Status: Acute (5) Hypomagnesemia: Status: Acute Reason for Visit Reason for Visit: Calcium Low-Sent by Dr Hospital Course Hospital Course History of Present Illness by Dr. Mehta 81-year-old female with past medical history significant for hypertension, hyperlipidemia, chronic stage 3 kidney disease with baseline around 1.3, hypothyroidism, gastroesophageal reflux disease, obstructive sleep apnea, osteoporosis, polymyalgia rheumatica, giant cell arteritis on actemra, chronic prednisone, chronic diastolic heart failure on p.r.n. Lasix, recent dx of cystic mass with plan for surgery at [facility], hypothyroidism, hyperparathyroidism with subsequent parathyroidectomy and hypocalcemia was directed to the hospital today for treatment of hypocalcemia. This was noted on routine blood work ordered outpatient by endocrinology. Patient stated that she was feeling somewhat anxious however attributed to increase in recent prednisone dose by rheumatology. Otherwise, did not have any new complaints. Denied recent fever, chills, nausea vomiting. Denies chest pain or shortness of breath. Laboratory workup on arrival showed a WBC of 10.1, hemoglobin of 12.3, hematocrit of 36.3 and platelet count of 285. Sodium 141, potassium 3.9, chloride 96, bicarb 28, BUN 28 and creatinine 1.5. Most recent creatinine was noted to be 1.2 on 02/09. Calcium level of 6.7. Ionized calcium of 0.8. Phosphorus of 5.9. Magnesium 1.6. Albumin of 4.5. TSH is 0.16. PTH intact of 13.0. In emergency room patient was given calcium gluconate and magnesium sulfate. Hosp course Patient was sent by biofuels plant manager Dr. Odonnell for management of hypocalcemia. Calcium was repleted with calcium gluconate, calcitriol, calcium carbonate supplementation. Patient never experienced any signs of hypocalcemia. She was anxious at the time of admission however her anxiety improved with reassurance. She is also on chronic steroids for PMR/arteritis. She also had other electrolyte abnormalities such as hypomagnesemia, which was repleted with IV mag sulfate 2 g. TSH ultra suppressed levothyroxine dose was readjusted to 75 mcg. Creatinine did improved with IV fluid hydration. Calcium at the time of discharge 8.6 Magnesium 2.1 Creatinine 1.4 which is around her baseline She will be discharged home with a prescription for ionized calcium to be checked in 2 days Follow-up with Dr. Odonnell on Friday Continue calcitriol and calcium carbonate, 0.25 mcg, 500 mg twice a day respectively Lasix dose decreased to 20 mg(due to loop diuretic effect of losing calcium), potassium 10 mEq daily regimen added as well Physical Exam Narrative: EXAM NARRATIVE: Patient was sitting comfortably in her chair Saturating well on room air Bilateral breath sounds S1, S2 Abdomen soft nontender visceral obesity Lower extremity trace edema No active neurological deficits Appropriate mood and affect Family at the bedside Discharge Data Data Completed and Pending: Labs from last 24 hours 02/13/21 02/12/21 05:34 21:01 Sodium 141 Potassium 4.0 Chloride 100 Carbon Dioxide 30 H Anion Gap 15.0 BUN 39 H Creatinine 1.4 H GFR Calculation Not Reportable Glucose 89 Calculated Osmolal ity 301 H Calcium 8.6 8.6 Magnesium 2.1 Total Bilirubin 0.4 AST 18 ALT 19 Alkaline Phosphata se 39 Total Protein 6.1 L Albumin 4.1 Globulin 2.0 Vitals: Last Vital Signs Temp 98.7 F 02/13/21 08:00 Pulse 68 02/13/21 08:00 Resp 18 02/13/21 08:00 BP 112/70 02/13/21 08:00 Pulse Ox 98 02/13/21 08:00 Discharge Plan Discharge Patient Disposition: Home Condition: Stable Prescriptions: New Lasix 20 mg tablet 20 mg PO DAILY Qty: 30 RF: 0 potassium chloride 10 mEq capsule, extended release 10 meq PO DAILY Qty: 30 RF: 0 Continued pantoprazole [Protonix] 40 mg tablet,delayed release (DR/EC) 40 mg PO DAILY RF: 0 potassium chloride 10 mEq tablet extended release 10 meq PO DAILY RF: 0 Hold Instructions: Resume on 12/09/20. hold gabapentin 300 mg capsule 300 mg PO TID Qty: 90 RF: 4 prednisone 20 mg tablet 20 mg PO DAILY RF: 0 rosuvastatin 5 mg tablet 5 mg PO DAILY RF: 0 aspirin 81 mg tablet,delayed release (DR/EC) 81 mg PO BEDTIME RF: 0 acetaminophen [Tylenol Extra Strength] 500 mg tablet 1,000 mg PO TID RF: 0 calcitriol 0.25 mcg capsule 0.25 mcg PO DAILY Qty: 90 RF: 3 Hold Instructions: Resume on 12/27/20. hold until you see endocrinology carvedilol 3.125 mg tablet 3.125 mg PO BID RF: 0 Orencia ClickJect 125 mg/mL auto-injector 125 mg SUBCUT .Q7days Qty: 4 RF: 0 multivitamin with minerals Tablet 1 tab PO DAILY RF: 0 levocetirizine 5 mg tablet 5 mg PO BEDTIME RF: 0 Changed Tums 300 mg (750 mg) tablet,chewable 500 mg PO BID Qty: 60 RF: 1 levothyroxine 88 mcg tablet 75 mcg PO 0600 30 Days Qty: 30 RF: 0 Discontinued furosemide [Lasix] 40 mg tablet See Rx Instructions PO .COMPLEX RF: 0 Hold Instructions: Resume on 12/09/20. hold until you see primary care and recheck kidney function Discharge Orders: Discharge Order (Routine); Ordered 02/13/21 Ordered By: Graeme Barba Other Ambulatory Orders: Ionized Calcium (Routine) Timeframe: [id number] Facility: [facility] - Location: Lab - Main Lab Ordered By: Graeme Barba Referrals: Leti Ocasio MD [Primary Care Provider] - Mariana Odonnell MD [Physician] - 02/16/21 Discharge Diet: Cardiac Discharge Activity: Increase activity as tolerated Patient Instructions: Hypocalcemia (ED), Opioid Safety Discharge Attestations Time Spent in Discharge Care*: less than 30 min Quality Metrics Clinical Quality Measures During this hospital stay, did patient experience: None Coding Level of Care Code Acute Chg FW DC note Diagnoses Post-surgical hypothyroidism E89.0 Post-surgical hypoparathyroidism E89.2 Hypocalcemia E83.51 Hypoparathyroidism E20.9 Hypomagnesemia E83.42
[2021-02-13 11:16] VITALS: BP 152/82; PULSE 69; RESP 17; TEMP 36.7; O2SAT 94
== END 2021-02-13 13:10 | disposition home or self-care (01) | DRG 641 ==
LOC: ER 02:28 → MEDSURG 06:11
PROVIDERS: Internal Medicine; Admitting Provider Hospitalist; Emergency Provider Emergency Medicine; PCP Internal Medicine; Visit Provider Internal Medicine
DX: E83.51 Hypocalcemia (principal); I13.0 Hypertensive heart and chronic kidney disease with heart failure and stage 1 through stage 4 chronic kidney disease, or unspecified chronic kidney disease; I50.32 Chronic diastolic (congestive) heart failure; N17.9 Acute kidney failure, unspecified; M31.5 Giant cell arteritis with polymyalgia rheumatica; N18.30 Chronic kidney disease, stage 3 unspecified; K21.9 Gastro-esophageal reflux disease without esophagitis; M81.0 Age-related osteoporosis without current pathological fracture; E89.2 Postprocedural hypoparathyroidism; Z96.642 Presence of left artificial hip joint; G47.33 Obstructive sleep apnea (adult) (pediatric); Z79.52 Long term (current) use of systemic steroids; E83.42 Hypomagnesemia; G62.9 Polyneuropathy, unspecified; Z79.82 Long term (current) use of aspirin
CPT/HCPCS: 36415; 80048; 80053; 82310; 82330; 83735; 83970; 84100; 84439; 84443; 85025; 93005; 94010; 96365; 96372; 96375; 99285; G0378; J0610; J1644; J3475; J7030; J7512

== ENCOUNTER → 2021-02-15 10:35 | Outpatient (BNVA) | payer MEDICARE, BC, SELFPAY | PROVIDERS: PCP Internal Medicine; Visit Provider Internal Medicine | DX: E83.51 Hypocalcemia (principal) | CPT/HCPCS: 80048 ==

== ENCOUNTER → 2021-02-16 08:59 | Outpatient (BNVA) | payer MEDICARE, BC, SELFPAY | PROVIDERS: PCP Internal Medicine; Visit Provider Internal Medicine | DX: E89.2 Postprocedural hypoparathyroidism (principal); M81.0 Age-related osteoporosis without current pathological fracture; E89.0 Postprocedural hypothyroidism; E83.52 Hypercalcemia; N83.209 Unspecified ovarian cyst, unspecified side | CPT/HCPCS: 99214 ==

== ENCOUNTER → 2021-02-19 08:26 | Outpatient (BNVA) | payer MEDICARE, BC, SELFPAY | PROVIDERS: PCP Internal Medicine; Visit Provider Internal Medicine | DX: E89.2 Postprocedural hypoparathyroidism (principal); E83.51 Hypocalcemia | CPT/HCPCS: 80048 ==

== ENCOUNTER → 2021-02-20 13:02 | Outpatient (BNVA) | payer MEDICARE, BC, SELFPAY | PROVIDERS: PCP Internal Medicine; Visit Provider Internal Medicine Rheumatology | DX: M31.5 Giant cell arteritis with polymyalgia rheumatica (principal); Z79.899 Other long term (current) drug therapy; M81.0 Age-related osteoporosis without current pathological fracture; M79.18 Myalgia, other site; M17.0 Bilateral primary osteoarthritis of knee; M16.0 Bilateral primary osteoarthritis of hip; M48.061 Spinal stenosis, lumbar region without neurogenic claudication; I87.2 Venous insufficiency (chronic) (peripheral); N18.30 Chronic kidney disease, stage 3 unspecified; Z96.642 Presence of left artificial hip joint; Z71.89 Other specified counseling | CPT/HCPCS: 99214 ==

== ENCOUNTER → 2021-02-23 10:53 | Outpatient (BNVA) | payer MEDICARE, BC, SELFPAY | PROVIDERS: PCP Internal Medicine; Referring Provider Obstetrics & Gynecology Gynecologic Oncology; Visit Provider Surgery | DX: Z11.52 Encounter for screening for COVID-19 (principal); Z20.822 Contact with and (suspected) exposure to COVID-19 | CPT/HCPCS: 87635 ==

== ENCOUNTER 2021-03-02 06:18 | Day surgery (SDC) | payer MEDICARE, BC, SELFPAY ==
[2021-02-28 16:32] VITALS: BMI 37.0
[2021-03-02 06:43] VITALS: BP 181/80; PULSE 79; RESP 18; TEMP 36.1; O2SAT 97
[2021-03-02] MEDS: sodium chloride 0.9% 1,000 ML 30 ML IV (06:49)
--- NOTE | 2021-03-02 07:15 | W.PM.OPSUD ---
Surgery/Procedure H&P Update DATE OF PROCEDURE: March 02, 2021 DATE H&P PERFORMED: 02/23/21 H&P UPDATE INFORMATION: I have reviewed H&P completed within last 30 days, I have examined patient prior to procedure and No changes to prior documentation PREOP DIAGNOSIS: diagnostic PLANNED PROCEDURE: Operation Date: 03/02/21 07:30 Proposed Procedures p Colonoscopy 45162 Z12.11(Not Applicable) - Awais Werner MD
--- NOTE | 2021-03-02 07:46 | ANES.PREANE2 ---
Pre-Anesthetic Assessment Pre-Anesthetic Assessment: Height/Weight: Height 5 ft Weight 86.183 kg Temp Pulse Resp BP Pulse Ox 97.0 F L 79 18 181/80 97 03/02/21 06:43 03/02/21 06:43 03/02/21 06:43 03/02/21 06:43 03/02/21 06:43 Preop Diagnosis: diagnostic Proposed Procedure: Operation Date: 03/02/21 07:30 Proposed Procedures p Colonoscopy 15142 Z12.11(Not Applicable) - Awais Werner MD Was Beta Francia taken within 24 hours: Yes Was Clonidine taken within 24 hours: N/A Last intake: Intake Last Liquid Date 03/01/21 Last Liquid Time 17:00 Last Solid Date 02/28/21 Last Solid Time 18:00 Social: Social History: No alcohol and No tobacco Exam: Pre-Anes Outpt Exam: alert, oriented x 3, clear to auscultation bilaterally and regular rate & rhythm Airway: Submandibular: WNL Cervical ROM: WNL MP: 2 History/ROS: No significant history except as noted Pulmonary: Pulmonary: Sleep apnea (O2 at night) CV/HEM: CV/HEM: HTN : : Chronic renal Insufficiency Hepatic: Hepatic: None reported GI: GI: GERD and Hiatus hernia Metabolic: Metabolic: Hyperlipidemia and Thyroid Musc/skel: Musc/skel: RA (chronic steroids) Neuropsych: Neuropsych: None reported Anesthetic Plan: ASA status: 2 Anesthesia: Anesthesia Evaluation and MAC Risk of > 500 ml blood loss (7ml/kg in children): No Meds/Allergies Current Medications: Current Medications Generic Name Dose Route Start Last Admin Trade Name Freq PRN Reason Stop Dose Admin Sodium Chloride 1,000 mls @ 30 ml s/hr 03/02/21 06:45 03/02/21 06:49 Sodium Chloride 0.9% IV 30 mls/hr .Q24H ANSELMO Administration PFSH Anesthesia PFSH: Medical History (Updated 02/23/21 @ 10:40 by Awais Werner MD) CKD (chronic kidney disease) stage 3, GFR 30-59 ml/min GERD (gastroesophageal reflux disease) Giant cell arteritis Heart failure Hypercalcemia Hypertension Hypocalcemia Osteoporosis PMR (polymyalgia rheumatica) 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 Right temporal headache Surgical History H/O thyroidectomy History of arthroscopy of right knee History of left hip replacement History of temporal artery biopsy (09/13/20) Status post colonoscopy Family History Father CAD (coronary artery disease) Prostate cancer Mother CAD (coronary artery disease) Sister Blood disorder Other Cancer Diabetes Hypertension Stroke Denies family history of Rheumatoid arthritis Systemic lupus erythematosus (SLE) in adult Social History Smoking and tobacco status: never smoked Second hand smoke exposure: No Smoking risk assessment/counseling performed?: No Alcohol intake: never Desire information about alcohol rehabilitation?: No Counseling given: No Desire information about substance/drug rehabilitation?: No Counseling given: No Adopted: No Caregiver/support person: No Lives independently: Yes Household members: none Housing: House Marital status: / Number of children: 2 Highest education level completed: High School Graduate service: No Current occupational status: retired History of recent travel: No Sexually active: No Current gender identity: Female Agree to transfusion: Yes Data Anesthesia Cardiac Studies: Echocardiogram 12/01/20
[2021-03-02 08:19] VITALS: BP 155/65; PULSE 79; RESP 16; TEMP 36.1; O2SAT 94
[2021-03-02 08:37] VITALS: BP 163/86; PULSE 75; RESP 18; O2SAT 96
--- NOTE | 2021-03-02 10:24 | XR_ITS ---
WS: [id number] Abdomen series: PA CHEST AND 2 VIEWS OF THE ABDOMEN HISTORY: POST COLONOSCOPY PAIN, FOLLOW-UP XRAY AFTER 1 VIEW ABDOMEN COMPARISON: 11/30/2020 chest radiograph Atelectasis at the LEFT lung base. Long-term stability of a 17 mm calcified nodule in the LEFT lower lung field. Increased amount of air throughout the colon. There is also small bowel dilatation. There is a large amount of air within the central abdomen which could be the cecum. Featureless appearance of this lar ge dilated loop of GI tract. Probably representing a part of the colon. Cecum versus sigmoid. Cecal v olvulus should be considered. No free air is identified. Please note that this supine and upright radiographs are taken nearly 1 hour apart and the amount of air within the GI tract has decreased. Note: The upright radiograph was taken approximately 1 hour later than the supine radiograph. There h as been a decrease within the amount of air in the GI tract since the prior study. XR/XR acute abdomen series 79757 IMPRESSION: 1. No free air is identified. If there is continued concern for perforation no ncontrast CT abdomen May be necessary. 2. Marked air distention of colon with air-fluid levels. There is a focal loop of dilated GI tract which probably a cecal or sigmoid in the central abdomen. If pain is persistent consider cecal or sigmoid volvulus.
== END 2021-03-02 11:08 | disposition home or self-care (01) ==
PROVIDERS: PCP Internal Medicine; Visit Provider Surgery
PROC: 0DJD8ZZ Inspection of Lower Intestinal Tract, Via Natural or Artificial Opening Endoscopic (ICD-10-PCS; CPT 45378; principal; 2021-03-02 07:30)
DX: Z12.11 Encounter for screening for malignant neoplasm of colon (principal); K57.30 Diverticulosis of large intestine without perforation or abscess without bleeding; G47.30 Sleep apnea, unspecified; K21.9 Gastro-esophageal reflux disease without esophagitis; K44.9 Diaphragmatic hernia without obstruction or gangrene; I13.10 Hypertensive heart and chronic kidney disease without heart failure, with stage 1 through stage 4 chronic kidney disease, or unspecified chronic kidney disease; N18.30 Chronic kidney disease, stage 3 unspecified; I50.9 Heart failure, unspecified; E78.5 Hyperlipidemia, unspecified; N83.209 Unspecified ovarian cyst, unspecified side; Z79.82 Long term (current) use of aspirin; E89.0 Postprocedural hypothyroidism; E89.2 Postprocedural hypoparathyroidism; M81.0 Age-related osteoporosis without current pathological fracture; Z79.52 Long term (current) use of systemic steroids
CPT/HCPCS: 74018; 74022; 96360; 96361; G0121; J2704; J7030

== ENCOUNTER 2021-03-05 06:50 | Outpatient (CLI) | payer MEDICARE, BC, SELFPAY ==
--- NOTE | 2021-03-05 07:29 | ECG_ITS ---
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 Interpretive Statements NAME OF STUDY: LEXISCAN SESTAMIBI STRESS TEST INDICATION: [Dyspnea] Procedure: At the baseline, the blood pressure was 160/71 mmHg with a heart rate of 65 bpm. The electrocardiogram showed normal sinus rhythm, normal axis with normal ST and T's. The Lexiscan was infused over a period of 20 seconds. A total of 0.4 mg of Lexiscan was infused. The stress phase was continued for a total of 5 minutes. Heart rate was at the end of stress phase was 96 bpm and a blood pressure of 158/72 mmHg. The EKG at the peak infusion revealed since normal sinus rhythm with no significant ST-T wave changes. Sestamibi was injected 20 seconds after the Lexiscan infusion. Blood pressure at the end of recovery phase was not recorded with a heart rate of 91 bpm. Conclusion: 1. Normal EKG response to Lexiscan infusion 2. No Lexiscan induced chest pain or cardiac arrhythmia. 3. Normal blood pressure and heart rate response. 4. Sestamibi/sestamibi perfusion scan pending; see separate report. Electronically Signed On 04-21-2021 11:32:11 PAINTING INSTRUCTOR by Iftikhar Sherman M.D. [id number]
--- NOTE | 2021-03-05 07:29 | NMCV_ITS ---
NM genesis perf SPECT r/s* [id number] Maggie Jeffers Age: 81 Gender: F : 1940 Exam Date: 03/05/2021 08:18 Ordering Phys: Iftikhar Sherman M.D ([email or web address]) Technologist: ASHLEY Frank Exam Location: [facility] Indications: DYSPNEA STRESS TEST Please [facility] IMAGE PROTOCOL Rest/Stress 1 Lexiscan Day Radiopharmaceutical Dose (mCi) Administration Site Administered by Rest: Tc-99m 10.9 IV ASHLEY Yepez Sestamibi Stress:Tc-99m 33.0 IV ASHLEY Frank Sestamichris Rest: 05-Mar-2021 60 Discovery 630 Stress: 05-Mar-2021 30 Discovery 630 0.4mg Lexiscan. Images obtained in supine and prone position. SPECT RESULTS Technical Quality: Excellent Raw Data Analysis: Normal Image Corrections: No attenuation or motion correction applied Summed Stress Score: 2 Summed Rest Score: 0 Summed Difference Score: 2 PERFUSION FINDINGS There is a small in size, reversible perfusion defect in apical lateral and lateral shaw. This is consistent with ischemia FUNCTIONAL RESULTS (calculated via Gated SPECT) Stress Image LV EF (%): 82 Stress EDV (mL):49 TID: 0.79 Stress ESV (mL):9 FUNCTIONAL FINDINGS: There is normal left ventricular systolic function. IMPRESSIONS 1. Abnormal myocardial perfusion imaging with ischemia noted in the apical lateral and lateral shaw 2. LV systolic function is normal Iftikhar Sherman MD (Electronically Signed) Final Date: 09 March 2021 13:14 S
[2021-03-05 07:35] VITALS: BMI 38.2
--- NOTE | 2021-03-05 07:37 | PC.NURSE ---
Blood drawn and delivered to lab per Dr. Blas cristina.
[2021-03-05 08:11] LABS: Anion Gap 16.1 (5-19); Blood Urea Nitrogen 19 mg/dL (8-23); Calcium 8.3 mg/dL (8.5-10.5); Carbon Dioxide 29 mmol/L (22-29); Chloride 104 mmol/L (98-107); Glucose 94 mg/dL (65-115); Osmolality Calculated 302 mOsm/kg (285-295); Potassium 4.1 mmol/L (3.5-5.1); Sodium 145 mmol/L (136-145)
[2021-03-05] MEDS: regadenoson 0.4 Mg/5 ml Syringe IVP (09:05)
[2021-03-05 09:23] VITALS: BP 158/72; PULSE 94
== END 2021-03-05 06:51 | disposition home or self-care (01) ==
LOC: RAD 07:13 → CDL 07:30
PROVIDERS: Internal Medicine; PCP Internal Medicine; Visit Provider Internal Medicine
DX: R06.00 Dyspnea, unspecified (principal); E83.51 Hypocalcemia; E89.2 Postprocedural hypoparathyroidism; M81.0 Age-related osteoporosis without current pathological fracture
CPT/HCPCS: 78452; 80048; 93017; A9500; J2785

== ENCOUNTER → 2021-03-12 13:26 | Outpatient (BNVA) | payer MEDICARE, BC, SELFPAY | PROVIDERS: PCP Internal Medicine; Visit Provider Internal Medicine | DX: E83.51 Hypocalcemia (principal) | CPT/HCPCS: 80048 ==

== ENCOUNTER 2021-03-20 13:01 | Outpatient (CLI) | payer MEDICARE, BC, SELFPAY ==
--- NOTE | 2021-03-20 13:06 | US_ITS ---
WS: [id number] TRANSABDOMINAL PELVIC AND TRANSVAGINAL PELVIC ULTRASOUND HISTORY: INTRA-ABDOMINAL PELVIC SWELLING,MASS, LUMP/OVARIAN CYST COMPARISON: None available. Prior hysterectomy. No uterus or midline mass identified. There is a large simple cyst in the mid pelvis with no solid component. Cyst measures 9.2 x 9.5 x 9.0 cm and was previously described on 01/15/2021. No associated ovarian soft tissue. No free fluid in th e pelvis.Neither ovary is identified as a separate structure. US/US pelvic with transvaginal IMPRESSION: 1. Cystic mass in the midline of the pelvis measures 9.2 x 9.5 x 9.0 cm. This mass was base described on MRI dated 01/15/2021. Thought to be ovarian in etiolo gy. Large ovarian cyst versus serous cystadenoma. No associated soft tissue or nodularity or septation. 2. No free fluid or ascites.
== END 2021-03-20 13:02 | disposition home or self-care (01) ==
LOC: RAD 13:04
PROVIDERS: PCP Internal Medicine; Visit Provider Internal Medicine
DX: R19.00 Intra-abdominal and pelvic swelling, mass and lump, unspecified site (principal); N83.209 Unspecified ovarian cyst, unspecified side
CPT/HCPCS: 76830; 76856

== ENCOUNTER → 2021-03-28 09:36 | Outpatient (BNVA) | payer MEDICARE, BC, SELFPAY | PROVIDERS: PCP Internal Medicine; Visit Provider Internal Medicine | DX: E83.51 Hypocalcemia (principal) | CPT/HCPCS: 80048 ==

== ENCOUNTER 2021-03-29 15:42 | Emergency (ER) | payer MEDICARE, BC, SELFPAY ==
[2021-03-29 15:55] VITALS: BP 165/84; PULSE 85; RESP 24; TEMP 37.2; O2SAT 96; BMI 39.0
--- NOTE | 2021-03-29 16:33 | XRR_ITS ---
PROCEDURE INFORMATION: Exam: XR Chest Exam date and time: 03/29/2021 4:33 PM Age: 81 years old Clinical indication: Patient HX: Shortness of breath/dyspnea; Additional info: SOB TECHNIQUE: Imaging protocol: XR of the chest. Views: 1 view. COMPARISON: CR XR chest 1V portable [id number] 11/30/2020 11:56 AM FINDINGS: Lungs: Left lower lobe calcified granuloma. Cardiomegaly. Pleural spaces: Unremarkable. No pleural effusion. No pneumothorax. Heart/Mediastinum: See Lungs finding. Bones/joints: Unremarkable. XR/XR chest 1V portable [id number] IMPRESSION: 1. Negative for infiltrate. 2. Cardiomegaly. 3. Left lower lobe calcified granuloma. Radiation Dose CTDIVOL = (mGy): DLP = (mGy-cm)
--- NOTE | 2021-03-29 16:43 | W.ED.SOB ---
Documented by User: Koko Thompson 03/29/21 17:58 HPI - SOB/Dyspnea General: Chief Complaint: Shortness of Breath/Dyspnea Stated Complaint: LOW CALCIUM Time Seen by Provider: 03/29/21 16:02 Source: patient and old records reviewed History of Present Illness: HPI Narrative: 81-year-old female presents to emergency department department chief complaint generalized weakness and fatigue patient reports was recently seen by her telephone operators supervisor today who reported she had low calcium levels and suggested to go to the ER for further assessment and management. Patient also had endocrinology evaluation as she has had her thyroid and parathyroidectomy done in the past which she already is on calcium segmentation as well as Tums. In the endocrinology note they made no additional recommendations for any further investigations patient is asymptomatic. Patient does report she has some mild shortness of breath and mild cough that is been ongoing for several weeks she reports lysed weakness fatigue with no apparent fever she reports no recent medication changes by her telephone operators supervisor or her auto radio mechanic reports no other associated symptoms besides her mild cough and shortness of breath and weakness. MD elicited complaint: shortness of breath and cough Associated symptoms: Reports chest congestion; Deny abdominal pain, chest pain, extremity pain, fever(s), nausea, palpitations or vomiting Review of Systems General: Reports: 10 or more systems reviewed and unremarkable except in HPI and below Const: Reports: fatigue and malaise (Generalized weakness and fatigue); Denies: fever(s) or chills Eyes: Denies: change in vision or blurry vision Card: Denies: chest pain or palpitations Resp: Reports: dyspnea and chest congestion; Denies: productive cough GI: Denies: abdominal pain, nausea or vomiting : Denies: flank pain Musc: Denies: extremity pain or extremity swelling Skin/Breast: Denies: rash or pruritus Neuro: Denies: headache(s) Psych: Denies: anxiety or depression Alpesh/Lymph: Denies: easy bleeding All/Imm: Denies: urticaria, throat swelling or facial swelling PFSH ED PFSH: Medical History CKD (chronic kidney disease) stage 3, GFR 30-59 ml/min GERD (gastroesophageal reflux disease) Giant cell arteritis Heart failure Hypercalcemia Hypertension Hypocalcemia Osteoporosis PMR (polymyalgia rheumatica) 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 Right temporal headache Surgical History H/O thyroidectomy History of arthroscopy of right knee History of left hip replacement History of temporal artery biopsy (09/13/20) Status post colonoscopy Family History Father CAD (coronary artery disease) Prostate cancer Mother CAD (coronary artery disease) Sister Blood disorder Other Cancer Diabetes Hypertension Stroke Denies family history of Rheumatoid arthritis Systemic lupus erythematosus (SLE) in adult Social History Second hand smoke exposure: No Smoking risk assessment/counseling performed?: No Alcohol intake: never Desire information about alcohol rehabilitation?: No Counseling given: No Desire information about substance/drug rehabilitation?: No Counseling given: No Adopted: No Caregiver/support person: No Lives independently: Yes Household members: none Housing: House Marital status: / Number of children: 2 Highest education level completed: High School Graduate service: No Current occupational status: retired History of recent travel: No Sexually active: No Current gender identity: Female Agree to transfusion: Yes Physical Exam Narrative: EXAM NARRATIVE: Patient appears nontoxic appears in no obvious acute distress. Const: COMMON NORMALS: no acute distress and patient oriented x3 HENMT: COMMON NORMALS: normocephalic and atraumatic HEAD & SCALP: normocephalic and atraumatic Eye: COMMON NORMALS: Equal, round and reactive pupils present and EOMs intact bilaterally PUPIL: Yes Equal, round and reactive pupils present Neck/C-Spine: COMMON NORMALS: full ROM, supple and no JVD Lymph: LYMPHATIC: no lymphadenopathy noted Chest: COMMONS NORMALS: normal inspection of the chest and normal palpation of entire chest wall Resp: COMMON NORMALS: normal respiratory effort, No retractions and clear to auscultation bilaterally EFFORT & INSPECTION: Yes able to speak in complete sentences and Yes symmetric chest movement AUSCULTATION: clear to auscultation bilaterally Cardio: COMMON NORMALS: no JVD, regular rate and regular rhythm RATE: regular rate RHYTHM: regular rhythm GI: COMMON NORMALS: Normal to inspection, nondistended, normoactive bowel sounds present, Soft to palpation and non-tender INSPECTION: Yes normal to inspection PALPATION: Yes Soft to palpation : COMMON NORMALS: Yes no CVA tenderness BLADDER/KIDNEY EXAM: Yes no CVA tenderness Back/Pelvis: COMMON NORMALS: no CVA tenderness Extremity: COMMON NORMALS: normal to inspection and full ROM Neuro: COMMON NORMALS: patient oriented x3, CN's II-XII intact bilaterally, moves all extremities and no focal motor deficits Psych: COMMON NORMALS: mental status grossly normal, Normal thought process present, cooperative and normal affect THOUGHT PROCESS: Normal thought process present Skin: COMMON NORMALS: no rashes or lesions noted GENERAL SKIN EXAM: no rashes or lesions noted Course Vital Signs: Vital signs: Vital Signs Temperature 99.0 F 03/29/21 15:55 Pulse Rate 85 03/29/21 15:55 Respiratory Rate 24 H 03/29/21 15:55 Blood Pressure 165/84 03/29/21 15:55 Pulse Oximetry 96 03/29/21 15:55 MDM - SOB/Dyspnea MDM Narrative: Medical decision making narrative: Due to the patient's symptoms and condition will be doing basic lab work patient is not demonstrating any hypocalcemia type symptoms at this time however due to her pre-existing low calcium level will be providing her some Calcium gluconate while waiting for her future labs come back we will continue to follow with the anticipation of probable discharge home Currently waiting on patient's remainder lab work as well as calcium gluconate to be given this patient was signed to my colleague Dr. Bojorquez at 1800 anticipate discharge home. Lab Data: Labs: Lab Results 03/29/21 03/29/21 03/29/21 16:18 16:18 18:00 WBC 10.4 10^3/uL H 10 ^3/uL (4.0-10.0) RBC 3.80 10^6/uL L 10 ^6/uL (4.1-5.3) Hgb 13.1 g/dL g/dL (11.5-15.3) Hct 39.3 % % (37.0-47.0) MCV 103.4 fl H fl (81-99) MCH 34.5 pg H pg (28.0-34.0) MCHC 33.3 g/dL g/dL (30.0-36.0) RDW 12.4 % % (12.1-15.1) Plt Count 281 10^3/cmm 10^3 /cmm (130-400) MPV 9.0 fL fL (7.4-10.4) Neut % (Auto) 80.4 % % Lymph % (Auto) 10.9 % % [place] % (Auto) 5.9 % % Eos % (Auto) 0.5 % % Baso % (Auto) 0.3 % % Neut # (Auto) 8.38 10^3/uL H 10 ^3/uL (1.8-7.7) Lymph # (Auto) 1.1 10^3/uL 10^3/ uL (0.8-4.8) [place] # (Auto) 0.6 10^3/uL 10^3/ uL (0.2-0.9) Eos # (Auto) 0.1 10^3/uL 10^3/ uL (0.0-0.8) Baso # (Auto) 0.0 10^3/uL 10^3/ uL (0.0-0.1) Nucleated RBC % (a uto) 0 % % Nucleated RBCs # 0.0 /100WBC /100W BC Sodium 145 mmol/L mmol/L (136-145) Potassium 4.3 mmol/L mmol/L (3.5-5.1) Chloride 103 mmol/L mmol/L (98-107) Carbon Dioxide 22 mmol/L mmol/L (22-29) Anion Gap 24.3 H (5-19) BUN 25 mg/dL H mg/dL (8-23) Creatinine 1.4 mg/dL H mg/dL (0.5-0.9) GFR Calculation Not Reportable Glucose 93 mg/dL mg/dL (65-115) Calculated Osmolal ity 304 mOsm/kg H mOs m/kg (285-295) Calcium 7.6 mg/dL L mg/dL (8.5-10.5) Phosphorus 4.5 mg/dL mg/dL (2.5-4.5) Magnesium 1.8 mg/dL mg/dL (1.7-2.3) Total Bilirubin 0.4 mg/dL mg/dL (0.15-1.2) AST 23 U/L U/L (0-32) ALT 36 U/L H U/L (0-33) Alkaline Phosphata se 46 IU/L IU/L (35-105) Total Protein 6.2 g/dL L g/dL (6.6-8.7) Albumin 4.6 g/dL g/dL (3.5-5.2) Globulin 1.6 g/dL g/dL (1.3-4.6) Urine Color Straw (Yellow) Urine Appearance Clear (CLEAR) Urine pH 5 (5-7) Ur Specific Gravit y 1.010 (1.005-1.030) Urine Protein Neg (Negative) Urine Glucose (UA) Norm (Normal) Urine Ketones Negative (Negative) Urine Blood Neg (Negative) Urine Nitrate Negative (Negative) Urine Bilirubin Neg (Negative) Urine Urobilinogen Norm mg/dL mg/dL (Negative) Ur Leukocyte Lilliana ase 1+ H (Negative) Urine RBC Not Reportable Urine WBC 10-15 /hpf H /hpf (0-5) Ur Squamous Epith Cells 0-4 /hpf H /hpf (0-5) Ur Transition Epit h Cell 0-4 /hpf /hpf Amorphous Sediment Not Reportable Urine Bacteria Trace /hpf /hpf (NONE) Urine Mucus Trace /hpf /hpf Discharge Plan Discharge Patient Disposition: Home Clinical Impression: Constitutional chronic hypocalcemia, Generalized weakness Condition: Stable Prescriptions: No Action rosuvastatin 5 mg tablet 5 mg PO DAILY RF: 0 aspirin 81 mg tablet,delayed release (DR/EC) 81 mg PO BEDTIME RF: 0 acetaminophen [Tylenol Extra Strength] 500 mg tablet 1,000 mg PO TID RF: 0 carvedilol 3.125 mg tablet 3.125 mg PO BID RF: 0 Actemra 162 mg/0.9 mL syringe 162 mg SUBCUT .once a week 30 Days Qty: 4 RF: 3 pantoprazole [Protonix] 40 mg tablet,delayed release (DR/EC) 40 mg PO DAILY Qty: 30 RF: 3 prednisone 5 mg tablet See Rx Instructions PO DAILY Qty: 90 RF: 1 gabapentin 300 mg capsule 300 mg PO TID Qty: 90 RF: 4 calcium carbonate [Tums] 300 mg (750 mg) tablet,chewable 500 mg PO BID Qty: 60 RF: 1 levothyroxine 88 mcg tablet 75 mcg PO 0600 30 Days Qty: 30 RF: 0 furosemide [Lasix] 20 mg tablet 20 mg PO DAILY Qty: 30 RF: 0 potassium chloride 10 mEq capsule, extended release 10 meq PO DAILY Qty: 30 RF: 0 multivitamin with minerals Tablet 1 tab PO DAILY RF: 0 levocetirizine 5 mg tablet 5 mg PO BEDTIME RF: 0 ondansetron HCl [Zofran] 4 mg tablet 4 mg PO Q6H RF: 0 calcitriol [Rocaltrol] 0.25 mcg capsule 0.25 mcg PO DAILY RF: 0 Discharge Orders: Discharge ED (Routine); Ordered 03/29/21 Ordered By: Stephy Bojorquez Referrals: Leti Ocasio MD [Primary Care Provider] - Discharge Diet: Advance as tolerated Discharge Activity: Resume usual activity Patient Instructions: Hypocalcemia (ED) Coding Level of Care Code ED Footwear Sales Associate for Chg Fwd Exam Comprehensive Documented by User: Stephy Bojorquez MD 03/29/21 18:29 HPI - SOB/Dyspnea General: Chief Complaint: Shortness of Breath/Dyspnea Stated Complaint: LOW CALCIUM Time Seen by Provider: 03/29/21 16:02 PFSH ED PFSH: Medical History CKD (chronic kidney disease) stage 3, GFR 30-59 ml/min GERD (gastroesophageal reflux disease) Giant cell arteritis Heart failure Hypercalcemia Hypertension Hypocalcemia Osteoporosis PMR (polymyalgia rheumatica) 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 Right temporal headache Surgical History H/O thyroidectomy History of arthroscopy of right knee History of left hip replacement History of temporal artery biopsy (09/13/20) Status post colonoscopy Family History Father CAD (coronary artery disease) Prostate cancer Mother CAD (coronary artery disease) Sister Blood disorder Other Cancer Diabetes Hypertension Stroke Denies family history of Rheumatoid arthritis Systemic lupus erythematosus (SLE) in adult Social History Second hand smoke exposure: No Smoking risk assessment/counseling performed?: No Alcohol intake: never Desire information about alcohol rehabilitation?: No Counseling given: No Desire information about substance/drug rehabilitation?: No Counseling given: No Adopted: No Caregiver/support person: No Lives independently: Yes Household members: none Housing: House Marital status: / Number of children: 2 Highest education level completed: High School Graduate service: No Current occupational status: retired History of recent travel: No Sexually active: No Current gender identity: Female Agree to transfusion: Yes Course Vital Signs: Vital signs: Vital Signs Temperature 99.0 F 03/29/21 15:55 Pulse Rate 85 03/29/21 15:55 Respiratory Rate 24 H 03/29/21 15:55 Blood Pressure 165/84 03/29/21 15:55 Pulse Oximetry 96 03/29/21 15:55 MDM - SOB/Dyspnea MDM Narrative: Medical decision making narrative: Patient presents here with hypocalcemia has been chronic in nature patient given calcium gluconate here I spoke to her auto radio mechanic informed her calcium level here is 7.6 she wants her to double her calcium supplement which I informed the patient to do and is going to set up a repeat lab draw on Friday I informed the patient of this as well patient states she feels fine and would like to go home I feel she is stable for discharge she is return if worsening. Lab Data: Labs: Lab Results 03/29/21 03/29/21 03/29/21 16:18 16:18 18:00 WBC 10.4 10^3/uL H 10 ^3/uL (4.0-10.0) RBC 3.80 10^6/uL L 10 ^6/uL (4.1-5.3) Hgb 13.1 g/dL g/dL (11.5-15.3) Hct 39.3 % % (37.0-47.0) MCV 103.4 fl H fl (81-99) MCH 34.5 pg H pg (28.0-34.0) MCHC 33.3 g/dL g/dL (30.0-36.0) RDW 12.4 % % (12.1-15.1) Plt Count 281 10^3/cmm 10^3 /cmm (130-400) MPV 9.0 fL fL (7.4-10.4) Neut % (Auto) 80.4 % % Lymph % (Auto) 10.9 % % [place] % (Auto) 5.9 % % Eos % (Auto) 0.5 % % Baso % (Auto) 0.3 % % Neut # (Auto) 8.38 10^3/uL H 10 ^3/uL (1.8-7.7) Lymph # (Auto) 1.1 10^3/uL 10^3/ uL (0.8-4.8) [place] # (Auto) 0.6 10^3/uL 10^3/ uL (0.2-0.9) Eos # (Auto) 0.1 10^3/uL 10^3/ uL (0.0-0.8) Baso # (Auto) 0.0 10^3/uL 10^3/ uL (0.0-0.1) Nucleated RBC % (a uto) 0 % % Nucleated RBCs # 0.0 /100WBC /100W BC Sodium 145 mmol/L mmol/L (136-145) Potassium 4.3 mmol/L mmol/L (3.5-5.1) Chloride 103 mmol/L mmol/L (98-107) Carbon Dioxide 22 mmol/L mmol/L (22-29) Anion Gap 24.3 H (5-19) BUN 25 mg/dL H mg/dL (8-23) Creatinine 1.4 mg/dL H mg/dL (0.5-0.9) GFR Calculation Not Reportable Glucose 93 mg/dL mg/dL (65-115) Calculated Osmolal ity 304 mOsm/kg H mOs m/kg (285-295) Calcium 7.6 mg/dL L mg/dL (8.5-10.5) Phosphorus 4.5 mg/dL mg/dL (2.5-4.5) Magnesium 1.8 mg/dL mg/dL (1.7-2.3) Total Bilirubin 0.4 mg/dL mg/dL (0.15-1.2) AST 23 U/L U/L (0-32) ALT 36 U/L H U/L (0-33) Alkaline Phosphata se 46 IU/L IU/L (35-105) Total Protein 6.2 g/dL L g/dL (6.6-8.7) Albumin 4.6 g/dL g/dL (3.5-5.2) Globulin 1.6 g/dL g/dL (1.3-4.6) Urine Color Straw (Yellow) Urine Appearance Clear (CLEAR) Urine pH 5 (5-7) Ur Specific Gravit y 1.010 (1.005-1.030) Urine Protein Neg (Negative) Urine Glucose (UA) Norm (Normal) Urine Ketones Negative (Negative) Urine Blood Neg (Negative) Urine Nitrate Negative (Negative) Urine Bilirubin Neg (Negative) Urine Urobilinogen Norm mg/dL mg/dL (Negative) Ur Leukocyte Lilliana ase 1+ H (Negative) Urine RBC Not Reportable Urine WBC 10-15 /hpf H /hpf (0-5) Ur Squamous Epith Cells 0-4 /hpf H /hpf (0-5) Ur Transition Epit h Cell 0-4 /hpf /hpf Amorphous Sediment Not Reportable Urine Bacteria Trace /hpf /hpf (NONE) Urine Mucus Trace /hpf /hpf Discharge Plan Discharge Patient Disposition: Home Clinical Impression: Constitutional chronic hypocalcemia, Generalized weakness Condition: Stable Prescriptions: No Action rosuvastatin 5 mg tablet 5 mg PO DAILY RF: 0 aspirin 81 mg tablet,delayed release (DR/EC) 81 mg PO BEDTIME RF: 0 acetaminophen [Tylenol Extra Strength] 500 mg tablet 1,000 mg PO TID RF: 0 carvedilol 3.125 mg tablet 3.125 mg PO BID RF: 0 Actemra 162 mg/0.9 mL syringe 162 mg SUBCUT .once a week 30 Days Qty: 4 RF: 3 pantoprazole [Protonix] 40 mg tablet,delayed release (DR/EC) 40 mg PO DAILY Qty: 30 RF: 3 prednisone 5 mg tablet See Rx Instructions PO DAILY Qty: 90 RF: 1 gabapentin 300 mg capsule 300 mg PO TID Qty: 90 RF: 4 calcium carbonate [Tums] 300 mg (750 mg) tablet,chewable 500 mg PO BID Qty: 60 RF: 1 levothyroxine 88 mcg tablet 75 mcg PO 0600 30 Days Qty: 30 RF: 0 furosemide [Lasix] 20 mg tablet 20 mg PO DAILY Qty: 30 RF: 0 potassium chloride 10 mEq capsule, extended release 10 meq PO DAILY Qty: 30 RF: 0 multivitamin with minerals Tablet 1 tab PO DAILY RF: 0 levocetirizine 5 mg tablet 5 mg PO BEDTIME RF: 0 ondansetron HCl [Zofran] 4 mg tablet 4 mg PO Q6H RF: 0 calcitriol [Rocaltrol] 0.25 mcg capsule 0.25 mcg PO DAILY RF: 0 Discharge Orders: Discharge ED (Routine); Ordered 03/29/21 Ordered By: Stephy Bojorquez Referrals: Leti Ocasio MD [Primary Care Provider] - Discharge Diet: Advance as tolerated Discharge Activity: Resume usual activity Patient Instructions: Hypocalcemia (ED) Coding Level of Care Code ED Footwear Sales Associate for Chg Fwd Exam Comprehensive
[2021-03-29] MEDS: sodium chloride 0.9% 500 ML IV (16:45)
[2021-03-29 16:47] LABS: Basophils % 0.3 %; Eosinophils # 0.1 10^3/uL (0.0-0.8); Eosinophils % 0.5 %; Hematocrit 39.3 % (37.0-47.0); Hemoglobin 13.1 g/dL (11.5-15.3); Lymphocytes # 1.1 10^3/uL (0.8-4.8); Lymphocytes % 10.9 %; Mean Corpuscular HGB Conc 33.3 g/dL (30.0-36.0); Mean Corpuscular Hemoglobin 34.5 pg (28.0-34.0); Mean Corpuscular Volume 103.4 fl (81-99); Monocytes # 0.6 10^3/uL (0.2-0.9); Monocytes % 5.9 %; Neutrophils # 8.38 10^3/uL (1.8-7.7); Neutrophils % 80.4 %; Nucleated Red Blood Cells % 0 %; Platelet Count 281 10^3/cmm (130-400); Red Cell Distribution Width 12.4 % (12.1-15.1); White Blood Count 10.4 10^3/uL (4.0-10.0)
[2021-03-29 17:10] LABS: Alanine Aminotransferase 36 U/L (0-33); Albumin Level 4.6 g/dL (3.5-5.2); Alkaline Phosphatase 46 IU/L (35-105); Aspartate Amino Transferase 23 U/L (0-32); Blood Urea Nitrogen 25 mg/dL (8-23); Calcium 7.6 mg/dL (8.5-10.5); Carbon Dioxide 22 mmol/L (22-29); Chloride 103 mmol/L (98-107); Globulin 1.6 g/dL (1.3-4.6); Glucose 93 mg/dL (65-115); Magnesium 1.8 mg/dL (1.7-2.3); Osmolality Calculated 304 mOsm/kg (285-295); Phosphorus 4.5 mg/dL (2.5-4.5); Sodium 145 mmol/L (136-145); Total Bilirubin 0.4 mg/dL (0.15-1.2); Total Protein 6.2 g/dL (6.6-8.7)
[2021-03-29 17:11] LABS: Creatinine Clr Calc Pharmacy 32.1721
[2021-03-29 17:12] LABS: Anion Gap 24.3 (5-19); Potassium 4.3 mmol/L (3.5-5.1)
[2021-03-29 18:01] LABS: Charge for UA Resulting for Rev
[2021-03-29 18:07] LABS: Add Urine Microscopic? YES; Bilirubin Urine Neg (Negative); Blood Urine Neg (Negative); Glucose Urine UA Norm (Normal); Ketones Urine Negative (Negative); Leukocyte Esterase Urine 1+ (Negative); Nitrate Urine Negative (Negative); Protein Urine Neg (Negative); Urine Appearance Clear (CLEAR); Urine Color Straw (Yellow); Urobilinogen Urine Norm (Negative); pH Urine 5 (5-7)
[2021-03-29 18:11] LABS: Add Urine Culture? No; Bacteria Urine TRACE /hpf; Mucus Urine TRACE /hpf; Squamous Epithelial Cell Urine 0-4 /hpf (0-5); Transitional Epi Cells Urine 0-4 /hpf
== END 2021-03-29 18:42 | disposition home or self-care (01) ==
PROVIDERS: Emergency Medicine; Emergency Provider Emergency Medicine; PCP Internal Medicine
DX: R53.1 Weakness (principal); E83.51 Hypocalcemia; Z79.82 Long term (current) use of aspirin; I12.9 Hypertensive chronic kidney disease with stage 1 through stage 4 chronic kidney disease, or unspecified chronic kidney disease; N18.30 Chronic kidney disease, stage 3 unspecified
CPT/HCPCS: 71045; 80053; 81001; 81003; 83735; 83880; 84100; 85025; 96365; 99214; 99283; J0610; J7040

== ENCOUNTER → 2021-04-02 10:40 | Outpatient (BNVA) | payer MEDICARE, BC, SELFPAY | PROVIDERS: PCP Internal Medicine; Visit Provider Internal Medicine | DX: E83.51 Hypocalcemia (principal); N18.30 Chronic kidney disease, stage 3 unspecified | CPT/HCPCS: 80048; 80069; 82043; 82306; 82310; 83970; 85025 ==

== ENCOUNTER → 2021-07-05 10:25 | Outpatient (BNVA) | payer MEDICARE, BC, SELFPAY | PROVIDERS: PCP Internal Medicine; Visit Provider Internal Medicine | DX: E89.0 Postprocedural hypothyroidism (principal); E89.2 Postprocedural hypoparathyroidism; M81.0 Age-related osteoporosis without current pathological fracture | CPT/HCPCS: 99214 ==

== ENCOUNTER → 2021-07-16 13:15 | Outpatient (BNVA) | payer MEDICARE, BC, SELFPAY | PROVIDERS: PCP Internal Medicine; Visit Provider Internal Medicine Rheumatology | DX: M31.5 Giant cell arteritis with polymyalgia rheumatica (principal); Z79.899 Other long term (current) drug therapy; Z79.52 Long term (current) use of systemic steroids; M81.0 Age-related osteoporosis without current pathological fracture; I87.2 Venous insufficiency (chronic) (peripheral); N18.30 Chronic kidney disease, stage 3 unspecified; M79.18 Myalgia, other site; M15.9 Polyosteoarthritis, unspecified; M48.061 Spinal stenosis, lumbar region without neurogenic claudication; Z96.642 Presence of left artificial hip joint; Z71.89 Other specified counseling | CPT/HCPCS: 99214 ==

== ENCOUNTER → 2021-08-16 15:50 | Outpatient (BNVA) | payer MEDICARE, BC, SELFPAY | PROVIDERS: PCP Internal Medicine; Visit Provider Internal Medicine | DX: I13.0 Hypertensive heart and chronic kidney disease with heart failure and stage 1 through stage 4 chronic kidney disease, or unspecified chronic kidney disease (principal); N18.30 Chronic kidney disease, stage 3 unspecified; I50.9 Heart failure, unspecified; Z79.82 Long term (current) use of aspirin; R06.00 Dyspnea, unspecified; R07.89 Other chest pain | CPT/HCPCS: 80048; 83880; 99214; 99215 ==

== ENCOUNTER 2021-08-21 05:29 | Outpatient (CLI) | payer MEDICARE, BC, SELFPAY ==
[2021-08-20 12:20] LABS: Basophils # 0.1 10^3/uL (0.0-0.1); Basophils % 0.4 %; Eosinophils # 0.1 10^3/uL (0.0-0.8); Eosinophils % 0.7 %; Hematocrit 34.1 % (37.0-47.0); Hemoglobin 11.3 g/dL (11.5-15.3); Lymphocytes # 1.2 10^3/uL (0.8-4.8); Lymphocytes % 8.7 %; Mean Corpuscular HGB Conc 33.1 g/dL (30.0-36.0); Mean Corpuscular Hemoglobin 34.6 pg (28.0-34.0); Mean Corpuscular Volume 104.3 fl (81-99); Mean Platelet Volume 9.1 fL (7.4-10.4); Monocytes # 0.8 10^3/uL (0.2-0.9); Monocytes % 5.8 %; Neutrophils % 80.3 %; Nucleated Red Blood Cells % 0.3 %; Platelet Count 294 10^3/cmm (130-400); Red Blood Count 3.27 10^6/uL (4.1-5.3); Red Cell Distribution Width 13.6 % (12.1-15.1); White Blood Count 13.7 10^3/uL (4.0-10.0)
[2021-08-20 12:45] LABS: Blood Urea Nitrogen 28 mg/dL (8-23); Calcium 7.9 mg/dL (8.5-10.5); Carbon Dioxide 24 mmol/L (22-29); Chloride 101 mmol/L (98-107); Glucose 87 mg/dL (65-115); Osmolality Calculated 297 mOsm/kg (285-295); Sodium 141 mmol/L (136-145)
[2021-08-20 12:47] LABS: Anion Gap 20.1 (5-19); Potassium 4.1 mmol/L (3.5-5.1)
[2021-08-20 12:52] LABS: INR 0.88 (0.83-1.21); Prothrombin Time (Patient) 12.3 Seconds (12.0-15.1)
[2021-08-21] MEDS: sodium chloride 0.9% 1,000 ML 150 ML IV (06:00)
--- NOTE | 2021-08-21 06:00 | XACV_ITS ---
Exam Room: 2 Ht: 152 cm Wt: 91 kg BSA: 2.01 m2 Gender: Female : 1940 Exam Priority: Routine Procedure(s): Procedure Description: Diagnostic procedure Procedure Description: Left Heart Catheterization Procedure Description: Coronary Angiography Diagnostic Cath Status: Elective Diagnostic Findings * Left Anterior Descending is a tortuous vessel and has no significant disease. * Circumflex has minimal luminal irregularities. * INDICATION: Dyspnea on exertion/Abnormal stress test. * Left Main has no disease. * Distal Right Coronary Artery: moderate 50% stenosis, PARKER: 3 flow. * Coronary angiography shows right dominance. Conclusions 1. Non obstructive coronary artery disease. 2. Moderate distal RCA disease. 3. Elevated LVEDP. Recommendations * Aggressive risk factor modification. * LVEDP is elevated. Patient will benefit from increased diuresis, however has significant hypocalcemia history and will need close follow up once lasix dose is increased. * Outpatient cardiology follow up in 4 weeks. Interventional RX Recommendation: medical therapy and/or counseling Diagnostic RX Recommendation: medical therapy and/or counseling Anticoagulation: Heparin Pressures Phase:Rest AO : 126 / 66 ( 94 ) @ 12:03:00 PM 127 / 68 ( 96 ) @ 12:06:00 PM 173 / 72 ( 107 ) @ 12:09:00 PM 167 / 51 ( 94 ) @ 12:09:00 PM LV : 177 / -7 / 23 @ 12:09:00 PM 175 / -2 / 24 @ 12:09:00 PM Valves Phase:DefaultPhase AV : 2.0 @ 11:15:52 AM AV Mean Gradient: 14.0 @ 11:15:52 AM 14.0 @ 11:15:52 AM Clinical Evaluation EBL: 5mL-10mL Procedural Details Procedure Consent Obtained. Admit Source: Out Patient. Pre-Procedure Time Out. Identified patient by full name and date of as verbalized by the patient/guarantor. Does the consent match the physician's order: Yes. Accurate & Complete Informed Consent: Yes. Inpatient/Outpatient History & Physical on Chart: Yes. If H&P is completed, is and addenduem needed: N/A; If yes, is the addendum complete: N/A. Visualize and Verify Site with Patient/Guarantor: N/A. Relevant Radiology Images available: N/A. Pre-op teaching completed and patient verbalized understanding. The risks, benefits, and alternatives of sedation and/or procedure were discussed by physician. The patient agrees to continue. Procedure started. [facility] Clinical Fraility Score: 3: Managing Well. Crankshaft Straightener Indications: Worsening Angina. Chest Pain Symptom Assessment: Atypical Angina. Correct patient, site and procedure confirmed by cath team. Current diagnosis: Chest Pain. PERRLA. Strong, equal hand motor setter bilaterally. Lungs clear x 5 lobes. IV Site on Arrival: 20 gauge in the right anticubital. IV Fluids: 0.9% NaCl at KVO. 550 mL infused prior to labels molder. Pre Procedural Pulses: bilateral dorsalis pedis was 1+. Pre Procedural Pulses: bilateral radial was 3+. Oxygen started at 2liters/min via nasal canula. right groin was prepped with chloroprep then draped in the usual sterile fashion. right radial was prepped with chloroprep then draped in the usual sterile fashion. Physician notified. Baseline sample Acquired. HR: 79 BPM. Physician arrived. Physician scrubbed in. Immediate Pre-Procedure Time Out. Correct Patient: Yes; Correct Procedure: Yes; Correct Site: Yes; Correct Patient Position: Yes; Correct Supplies: Yes; Dried Flammable Prep: Yes; Blood Products Available: N/A;. Lidocaine 1% infiltrated to the right radial. Arterial access obtained. A 5 yi TIG catheter in over wire. Multiple views taken of left coronary artery. Catheter redirected to the RCA. Multiple views taken of right coronary artery. EDP Sample taken: LV 177/-8,23; HR: 89 BPM; SpO2: 96%. Pullback taken: LV 175/-3,24; AO 173/72(107); Mean: 14mmHg, Peak to Peak: 2mmHg, SEP: 9sec/min; HR: 87 BPM; SpO2: 96%. Catheter and wire out. Physician scrubbed out. Patient's family updated. A TR Band was successful obtaining hemostatsis at the Right Radial artery insertion site. Post Procedure: Pulses reassessed and unchanged. PERRLA. Strong, equal hand motor setter bilaterally. No VTE prophylaxis required. Medication's Wasted: Lidocaine 1% = 7 mL. Medication's Wasted: Nitro = 49.8 mg. Medication's Wasted: Heparin = 1000 u. Total IV fluids: 25 mL. Post-op diagnosis: Non Obstructive CAD. Complications: none. Estimated blood loss: 5mL-10mL. Responsiveness - Normal response to verbal stimuli; alert and oriented, PERRLA. Airway - Unaffected, no intervention required; spontaneous ventilation. Circulation: W/N/L, pulses unchanged. Nausea/Vomiting: No. Procedure completed. Patient transferred by wheelchair to ICU. Vital chart was stopped. Access Site Site: Right Radial artery Sheath Size: 6 Fr Hemostasis Method: TR Band Hemostasis Success: Successful Procedure Medications Start: 10:58 AM Stop: 10:58 AM Medication: Versed Amount: 1 mg Route: I.V. Start: 10:59 AM Stop: 10:59 AM Medication: Fentanyl Amount: 50 mcg Route: I.V. Start: 11:02 AM Stop: 11:02 AM Medication: Versed Amount: 1 mg Route: I.V. Start: 11:03 AM Stop: 11:03 AM Medication: Heparin Amount: 5000 units Route: I.V. Start: 11:01 AM Stop: 11:01 AM Medication: Nitrogylcerin Amount: 200 mcg Route: I.A. I, the attending physician, have reviewed and verified all procedure medications. Yes, all medications given per verbal order History/Risk Factors Hypertension: Yes Dyslipidemia: No Peripheral Arterial Disease (PAD): No Myocardial Infarction (NM): No Obesity: Yes Renal Disease: No Tobacco Use: Never Prior Interventions PCI: No CABG: No Valve Surgery: No Report Signatures Finalized by fItikhar Sherman MD on 08/30/2021 12:49 PM
[2021-08-21 06:25] LABS: Basophils % 0.3 %; Eosinophils # 0.1 10^3/uL (0.0-0.8); Eosinophils % 0.6 %; Hematocrit 35.5 % (37.0-47.0); Hemoglobin 11.6 g/dL (11.5-15.3); Lymphocytes # 1.1 10^3/uL (0.8-4.8); Lymphocytes % 9.1 %; Mean Corpuscular HGB Conc 32.7 g/dL (30.0-36.0); Mean Corpuscular Hemoglobin 34.8 pg (28.0-34.0); Mean Corpuscular Volume 106.6 fl (81-99); Monocytes # 0.6 10^3/uL (0.2-0.9); Monocytes % 5.2 %; Neutrophils % 82.1 %; Nucleated Red Blood Cells % 0.2 %; Platelet Count 305 10^3/cmm (130-400); Red Blood Count 3.33 10^6/uL (4.1-5.3); Red Cell Distribution Width 13.9 % (12.1-15.1); White Blood Count 11.7 10^3/uL (4.0-10.0)
[2021-08-21 07:56] VITALS: BP 161/62; PULSE 94; RESP 16; TEMP 36.9; O2SAT 94; BMI 39.0
[2021-08-21] MEDS: diphenhydrAMINE 50 mg Capsule PO (09:00)
--- NOTE | 2021-08-21 10:53 | W.PM.OPSUD ---
Surgery/Procedure H&P Update DATE OF PROCEDURE: August 21, 2021 DATE H&P PERFORMED: 08/16/21 H&P UPDATE INFORMATION: I have reviewed H&P completed within last 30 days, I have examined patient prior to procedure and No changes to prior documentation PREOP DIAGNOSIS: Dyspnea on exertion/Abnormal stress test PRIMARY INDICATION FOR PROCEDURE: Dyspnea on exertion/Abnormal stress test PLANNED PROCEDURE: Operation Date: 08/21/21 10:00 Proposed Procedures p Cardiac Catheterization(Left) - Iftikhar Sherman M.D Possible percutaneous coronary intervention PATIENT REASSESSED PRIOR TO SEDATION, WITH NO CHANGE NOTED: Yes PHYSICAL EXAM: alert, oriented x 3, clear to auscultation bilaterally and regular rate & rhythm AIRWAY EVAL/ANESTHESIA PLAN: ASA III, Monitored Anesthesia, Local Anesthesia, Risks, benefits & alternatives of sedation and/or procedure discussed and Patient agrees to continue as planned
--- NOTE | 2021-08-21 12:12 | PC.NURSE ---
arrived from operations label clerk approximately 1130, TR band to Right wrist clean dry and intact
--- NOTE | 2021-08-21 15:53 | PC.NURSE ---
TR band removed per protocol, site clan dry and intact, D/C instruction educated to patient including appointment for lab draw and F/U with HCP, daughter at bedside
--- NOTE | 2021-08-21 16:46 | PC.NURSE ---
patient josselin at this time transported by [facility]
--- NOTE | 2021-08-30 14:48 | PC.PHAR ---
08/30/21 - spoke with Derrick at [email or web address]. patient has qualified for [facility]. Derrick called [facility] and spoke with brandon. Brandon set up shipment for 09/04/21 which is the day of first infusion. Derrick will set up shipment prior to each subsequent infusion. rbto derrick/jackie
== END 2021-08-21 16:30 | disposition home or self-care (01) ==
LOC: CCL 05:30 → ICU 11:10
PROVIDERS: PCP Internal Medicine; Visit Provider Internal Medicine
DX: I25.10 Atherosclerotic heart disease of native coronary artery without angina pectoris (principal); E66.9 Obesity, unspecified; Z68.39 Body mass index [BMI] 39.0-39.9, adult; I50.9 Heart failure, unspecified; I13.0 Hypertensive heart and chronic kidney disease with heart failure and stage 1 through stage 4 chronic kidney disease, or unspecified chronic kidney disease; N18.30 Chronic kidney disease, stage 3 unspecified; Z79.82 Long term (current) use of aspirin; Z79.52 Long term (current) use of systemic steroids; K21.9 Gastro-esophageal reflux disease without esophagitis; M81.0 Age-related osteoporosis without current pathological fracture
CPT/HCPCS: 36415; 80048; 85025; 85610; 93452; 93458; 96360; 96361; 99152; C1769; C1887; C1894; J1644; J2250; J3010; J3490; J7030; Q0163; Q9967

== ENCOUNTER 2021-08-24 13:55 | Outpatient (CLI) | payer MEDICARE, BC, SELFPAY ==
[2021-08-24 14:31] LABS: Anion Gap 16.8 (5-19); Blood Urea Nitrogen 21 mg/dL (8-23); Carbon Dioxide 25 mmol/L (22-29); Chloride 103 mmol/L (98-107); Glucose 123 mg/dL (65-115); Osmolality Calculated 296 mOsm/kg (285-295); Potassium 3.8 mmol/L (3.5-5.1); Sodium 141 mmol/L (136-145)
== END 2021-08-24 13:56 | disposition home or self-care (01) ==
PROVIDERS: PCP Internal Medicine; Visit Provider Internal Medicine
DX: N18.30 Chronic kidney disease, stage 3 unspecified (principal)
CPT/HCPCS: 36415; 80048

== ENCOUNTER 2021-09-04 12:50 | Outpatient (CLI) | payer MEDICARE, BC, SELFPAY ==
[2021-09-04 13:26] VITALS: BP 180/63; PULSE 75; RESP 18; TEMP 36.7; O2SAT 96
[2021-09-04 13:39] LABS: Basophils # 0.1 10^3/uL (0.0-0.1); Basophils % 0.4 %; Eosinophils # 0.1 10^3/uL (0.0-0.8); Eosinophils % 0.6 %; Hematocrit 33.7 % (37.0-47.0); Hemoglobin 11.1 g/dL (11.5-15.3); Lymphocytes # 1.5 10^3/uL (0.8-4.8); Mean Corpuscular HGB Conc 32.9 g/dL (30.0-36.0); Mean Corpuscular Hemoglobin 34.2 pg (28.0-34.0); Mean Corpuscular Volume 103.7 fl (81-99); Monocytes % 7.4 %; Neutrophils % 75.7 %; Nucleated Red Blood Cells % 0.2 %; Platelet Count 371 10^3/cmm (130-400); Red Blood Count 3.25 10^6/uL (4.1-5.3); Red Cell Distribution Width 13.7 % (12.1-15.1); White Blood Count 13.6 10^3/uL (4.0-10.0)
[2021-09-04] MEDS: acetaminophen 325 mg Tablet 650 MG PO (13:50)
[2021-09-04] MEDS: sodium chloride 0.9% 250 ML 50 ML IV (13:54)
[2021-09-04] MEDS: diphenhydrAMINE 50 mg/mL SDV 1mL 25 MG IVP (13:56)
[2021-09-04 13:59] LABS: Alanine Aminotransferase 20 U/L (0-33); Alkaline Phosphatase 46 IU/L (35-105); Aspartate Amino Transferase 17 U/L (0-32); Globulin 2.6 g/dL (1.3-4.6); Total Bilirubin 0.3 mg/dL (0.15-1.2); Total Protein 6.6 g/dL (6.6-8.7)
[2021-09-04 14:11] LABS: Erythrocyte Sedimentation Rate 10 mm/hr (0-15)
[2021-09-04 15:32] VITALS: BP 175/69; PULSE 76; RESP 18; TEMP 37.1; O2SAT 94
== END 2021-09-04 12:51 | disposition home or self-care (01) ==
LOC: ONCMED 12:55
PROVIDERS: PCP Internal Medicine; Referring Provider Internal Medicine Rheumatology; Visit Provider Internal Medicine Rheumatology
DX: M31.6 Other giant cell arteritis (principal); Z79.899 Other long term (current) drug therapy
CPT/HCPCS: 80076; 82565; 85025; 85651; 96365; 96375; J1200; J2920; J3262; J7050

== ENCOUNTER 2021-09-13 08:41 | Outpatient (CLI) | payer MEDICARE, BC, SELFPAY ==
--- NOTE | 2021-09-13 08:48 | CT_ITS ---
WS: [id number] HIGH-RESOLUTION CT CHEST TECHNIQUE: High-resolution Noncontrast CT of the chest with coronal and sagittal reformatted images. Inspiration expiration and inspiration supine imaging obtained. CLINICAL INFORMATION: SHORTNESS OF BREATH/PNEUMOCYSTIS VS FIBROTIC LUNG DZ COMPARISON: None. DLP: 1966.[address] scans at [facility] use at least one of these dose optimization techniques: automated e xposure control; mA and/or kV adjustment per patient size (includes targeted exams where dose is matc hed to clinical indication); or iterative reconstruction. FINDINGS:Slight bibasilar atelectasis. Slight hazy atelectasis in the lung bases. No evidence of foca l pneumonia or pleural fluid. No evidence of interstitial fibrotic lung disease. No subpleural honeyc ombing or bronchiectasis. Moderate diffuse air trapping on expiratory images. Cardiomegaly. Aortic calcification. Normal caliber thoracic aorta. No mediastinal or hilar lymphadeno loki. Calcified subcarinal lymph nodes. No axillary lymphadenopathy. Adrenal glands are normal. Norm al noncontrast spleen. Normal GE junction. Normal thoracic spine. Densely calcified granulomas LEFT l ower lobe. CT/CT chest wo con [id number] IMPRESSION: 1. No evidence of fibrotic interstitial lung disease. No subpleural honeycombi ng or bronchiectasis. 2. Slight bibasilar atelectasis. 3. Moderate diffuse air trapping on expiratory images. 4. Calcified subcarinal lymph nodes with densely calcified dystrophic granulom as in the LEFT lower lobe.
== END 2021-09-13 08:42 | disposition home or self-care (01) ==
PROVIDERS: PCP Internal Medicine; Visit Provider Internal Medicine
DX: R06.02 Shortness of breath (principal)
CPT/HCPCS: 71250

== ENCOUNTER 2021-09-25 12:51 | Outpatient (CLI) | payer MEDICARE, BC, SELFPAY ==
--- NOTE | 2021-09-25 13:10 | MM_ITS ---
WS: [id number] Bilateral screening 3D tomosynthesis digital mammogram, 09/25/2021 Clinical Data: SCREENING Comparison: 10/14/2019, 05/27/2018, 02/19/2017, 03/16/2007. Findings: The breast parenchymal pattern shows fibroglandular tissue. No spiculated masses or clustered calcifi cations are seen. There are no secondary signs of carcinoma. There are calcifications in the shaw of small vessels. MM/[place] [id number] Impression: 1. Negative bilateral mammogram unchanged. 2. Recommend annual screening mammograms. BIRADS: 1-Negative FOLLOW UP: 1 Year Follow-up The CAD checkering machine operator was used.
== END 2021-09-25 12:52 | disposition home or self-care (01) ==
LOC: RAD 12:53
PROVIDERS: PCP Internal Medicine; Visit Provider Internal Medicine
DX: Z12.31 Encounter for screening mammogram for malignant neoplasm of breast (principal)
CPT/HCPCS: 77063; 77067

== ENCOUNTER 2021-10-02 13:01 | Outpatient (CLI) | payer MEDICARE, BC, SELFPAY ==
[2021-10-02 13:16] VITALS: BP 147/66; PULSE 75; RESP 18; TEMP 36.3; O2SAT 95
[2021-10-02] MEDS: sodium chloride 0.9% 250 ML 50 ML IV (13:46)
[2021-10-02] MEDS: acetaminophen 325 mg Tablet 650 MG PO (13:48)
[2021-10-02] MEDS: diphenhydrAMINE 50 mg/mL SDV 1mL 25 MG IVP (13:50)
[2021-10-02 15:07] VITALS: BP 156/68; PULSE 89; RESP 18; TEMP 36.8; O2SAT 96
== END 2021-10-02 13:02 | disposition home or self-care (01) ==
PROVIDERS: PCP Internal Medicine; Referring Provider Internal Medicine Rheumatology; Visit Provider Internal Medicine Rheumatology
DX: M31.6 Other giant cell arteritis (principal)
CPT/HCPCS: 96365; 96375; J1200; J2920; J3262; J7050

== ENCOUNTER → 2021-10-09 14:07 | Outpatient (BNVA) | payer MEDICARE, BC, SELFPAY | PROVIDERS: PCP Internal Medicine; Visit Provider Internal Medicine | DX: E89.2 Postprocedural hypoparathyroidism (principal); E89.0 Postprocedural hypothyroidism; M81.0 Age-related osteoporosis without current pathological fracture; I13.0 Hypertensive heart and chronic kidney disease with heart failure and stage 1 through stage 4 chronic kidney disease, or unspecified chronic kidney disease; N18.30 Chronic kidney disease, stage 3 unspecified | CPT/HCPCS: 99214 ==

== ENCOUNTER → 2021-11-21 12:52 | Outpatient (BNVA) | payer MEDICARE, BC, SELFPAY | PROVIDERS: PCP Internal Medicine; Visit Provider Internal Medicine Rheumatology | DX: M31.6 Other giant cell arteritis (principal); R51.9 Headache, unspecified; Z79.899 Other long term (current) drug therapy; M81.0 Age-related osteoporosis without current pathological fracture; Z71.89 Other specified counseling; M48.061 Spinal stenosis, lumbar region without neurogenic claudication; I87.2 Venous insufficiency (chronic) (peripheral); N18.30 Chronic kidney disease, stage 3 unspecified; E89.2 Postprocedural hypoparathyroidism | CPT/HCPCS: 99214 ==

== ENCOUNTER 2021-11-29 10:46 | Outpatient (CLI) | payer MEDICARE, BC, SELFPAY ==
[2021-11-29 11:12] VITALS: BP 163/75; PULSE 70; RESP 18; TEMP 36.2; O2SAT 98
[2021-11-29 11:49] LABS: Basophils % 0.2 %; Eosinophils # 0.1 10^3/uL (0.0-0.8); Eosinophils % 0.6 %; Hematocrit 34.3 % (37.0-47.0); Hemoglobin 11.2 g/dL (11.5-15.3); Lymphocytes # 1.5 10^3/uL (0.8-4.8); Lymphocytes % 11.2 %; Mean Corpuscular HGB Conc 32.7 g/dL (30.0-36.0); Mean Corpuscular Hemoglobin 35.1 pg (28.0-34.0); Mean Corpuscular Volume 107.5 fl (81-99); Mean Platelet Volume 9.3 fL (7.4-10.4); Monocytes # 0.9 10^3/uL (0.2-0.9); Monocytes % 7.3 %; Neutrophils # 10.22 10^3/uL (1.8-7.7); Neutrophils % 79.4 %; Nucleated Red Blood Cells % 0 %; Platelet Count 282 10^3/cmm (130-400); Red Blood Count 3.19 10^6/uL (4.1-5.3); Red Cell Distribution Width 12.6 % (12.1-15.1); White Blood Count 12.9 10^3/uL (4.0-10.0)
[2021-11-29 11:55] LABS: Erythrocyte Sedimentation Rate 5 mm/hr (0-15)
[2021-11-29] MEDS: sodium chloride 0.9% 250 ML 50 ML IV (12:03)
[2021-11-29] MEDS: acetaminophen 325 mg Tablet 650 MG PO (12:04)
[2021-11-29] MEDS: diphenhydrAMINE 50 mg/mL SDV 1mL 25 MG IV (12:05)
[2021-11-29 12:24] LABS: Alanine Aminotransferase 19 U/L (0-33); Albumin Level 4.3 g/dL (3.5-5.2); Alkaline Phosphatase 51 IU/L (35-105); Aspartate Amino Transferase 19 U/L (0-32); Globulin 2.1 g/dL (1.3-4.6); Total Bilirubin 0.2 mg/dL (0.15-1.2); Total Protein 6.4 g/dL (6.6-8.7)
[2021-11-29 13:24] VITALS: BP 138/65; PULSE 68; RESP 18; TEMP 36.4; O2SAT 97
== END 2021-11-29 10:47 | disposition home or self-care (01) ==
PROVIDERS: PCP Internal Medicine; Referring Provider Internal Medicine Rheumatology; Visit Provider Internal Medicine Rheumatology
DX: M31.6 Other giant cell arteritis (principal)
CPT/HCPCS: 80076; 82565; 85025; 85651; 96365; 96375; J1200; J2920; J3262; J7050

== ENCOUNTER 2021-12-25 12:57 | Oncology outpatient (recurring) (ONCR) | payer MEDICARE, BC, SELFPAY ==
[2021-12-25 13:37] LABS: Basophils % 0.3 %; Eosinophils # 0.1 10^3/uL (0.0-0.8); Eosinophils % 1.4 %; Hematocrit 33.9 % (37.0-47.0); Hemoglobin 11.3 g/dL (11.5-15.3); Lymphocytes # 1.4 10^3/uL (0.8-4.8); Lymphocytes % 15.6 %; Mean Corpuscular HGB Conc 33.3 g/dL (30.0-36.0); Mean Corpuscular Hemoglobin 35.3 pg (28.0-34.0); Mean Corpuscular Volume 105.9 fl (81-99); Mean Platelet Volume 9.2 fL (7.4-10.4); Monocytes # 0.7 10^3/uL (0.2-0.9); Monocytes % 8.1 %; Neutrophils # 6.64 10^3/uL (1.8-7.7); Neutrophils % 72.4 %; Nucleated Red Blood Cells % 0.2 %; Platelet Count 287 10^3/cmm (130-400); Red Cell Distribution Width 13.1 % (12.1-15.1); White Blood Count 9.2 10^3/uL (4.0-10.0)
[2021-12-25 13:41] LABS: Reticulocyte % 3.3 % (0.5-2.0)
[2021-12-25 13:44] LABS: LAB Peripheral Smear Sent for Review
[2021-12-25 14:00] LABS: Alanine Aminotransferase 18 U/L (0-33); Albumin Level 4.3 g/dL (3.5-5.2); Alkaline Phosphatase 55 U/L (35-105); Anion Gap 18.6 (5-19); Aspartate Amino Transferase 19 U/L (0-32); Blood Urea Nitrogen 27 mg/dL (8-23); Calcium 9.2 mg/dL (8.5-10.5); Carbon Dioxide 27 mmol/L (22-29); Chloride 102 mmol/L (98-107); Globulin 1.8 g/dL (1.3-4.6); Glucose 110 mg/dL (65-115); Lactate Dehydrogenase 477 U/L (135-214); Osmolality Calculated 304 mOsm/kg (285-295); Potassium 3.6 mmol/L (3.5-5.1); Sodium 144 mmol/L (136-145); Total Bilirubin 0.4 mg/dL (0.15-1.2); Total Protein 6.1 g/dL (6.6-8.7)
[2021-12-25 14:14] LABS: Albumin Level 4.1 g/dL (3.5-5.2); Anion Gap 17.5 (5-19); Blood Urea Nitrogen 28 mg/dL (8-23); Calcium 9.4 mg/dL (8.5-10.5); Carbon Dioxide 27 mmol/L (22-29); Chloride 103 mmol/L (98-107); Glucose 103 mg/dL (65-115); Phosphorus 3.9 mg/dL (2.5-4.5); Potassium 3.5 mmol/L (3.5-5.1); Sodium 144 mmol/L (136-145); Vitamin B12 653 pg/mL (232-1245)
[2021-12-25 14:35] LABS: Calcium 9.2 mg/dL (8.5-10.5)
[2021-12-25 14:43] LABS: Parathyroid Hormone 6.4 pg/mL (15-65)
[2021-12-27 17:37] LABS: Copper Level 58 mcg/dL (70-175)
[2021-12-29 08:38] LABS: Methylmalonic Acid 239 nmol/L (87-318)
== END 2021-12-26 23:59 | disposition home or self-care (01) ==
PROVIDERS: Nurse Practitioner; PCP Internal Medicine; Visit Provider Internal Medicine Medical Oncology
DX: D64.9 Anemia, unspecified (principal); Z79.52 Long term (current) use of systemic steroids
CPT/HCPCS: 36415; 80053; 80069; 82310; 82525; 82607; 83010; 83615; 83921; 83970; 85025; 85045; 99214

== ENCOUNTER 2022-01-02 12:47 | Outpatient (CLI) | payer MEDICARE, BC, SELFPAY ==
[2022-01-02 13:03] VITALS: BP 151/66; PULSE 74; RESP 18; TEMP 36.6; O2SAT 95
[2022-01-02] MEDS: sodium chloride 0.9% 250 ML 50 ML IV (13:40)
[2022-01-02] MEDS: acetaminophen 325 mg Tablet 650 MG PO (13:41)
[2022-01-02] MEDS: diphenhydrAMINE 50 mg/mL SDV 1mL 25 MG IVP (13:42)
[2022-01-02 15:18] VITALS: BP 143/61; PULSE 68; RESP 18; TEMP 36.4; O2SAT 96
== END 2022-01-02 12:48 | disposition home or self-care (01) ==
PROVIDERS: PCP Internal Medicine; Visit Provider Internal Medicine Rheumatology
DX: M31.6 Other giant cell arteritis (principal)
CPT/HCPCS: 96365; 96375; J1200; J2920; J3262; J7050

== ENCOUNTER 2022-01-09 12:38 | Outpatient (CLI) | payer MEDICARE, BC, SELFPAY ==
--- NOTE | 2022-01-09 13:00 | MR_ITS ---
WS: [id number] MRI LUMBAR SPINE NONCONTRAST TECHNIQUE: Sagittal T1, T2 and STIR imaging. Axial T1 and T2 imaging. CLINICAL INFORMATION: M54.9 - Dorsalgia, unspecified COMPARISON: MRI 2013 FINDINGS: Mild lumbar curve. No acute compression. Slight retrolisthesis L3 on L4 and L4 on L5. Disc space narr owing worse at L3-L4 with osteophytic ridging. Slight anterolisthesis L5 on S1.Small central protrusi on at T7-T8 with slight indentation on the lower thoracic cord and mild central canal stenosis L1-L2: Mild annular bulging. Mild facet arthropathy. Small RIGHT foraminal protrusion with mild RIGHT foraminal narrowing. LEFT foramen is patent. Mild facet arthropathy. L2-L3: Slight retrolisthesis. Mild annular bulging. Mild facet arthropathy. Spinal canal and foramen are patent. L3-L4: Slight retrolisthesis with disc desiccation. Moderate narrowing of the thecal sac with promine nt dorsal epidural fat. Moderate facet arthropathy. Narrowing subarticular recess bilaterally. Mild L EFT and no RIGHT foraminal narrowing. L4-L5: Slight retrolisthesis. Mild annular bulging. Mild central canal stenosis. RIGHT eccentric oste ophytic ridging with mild RIGHT and no LEFT foraminal narrowing. Moderate facet arthropathy with liga mentum flavum hypertrophy. Tiny RIGHT subarticular protrusion impinges the traversing RIGHT L5 nerve root. L5-S1: Mild disc osteophytic ridging. Slight effacement of ventral thecal sac. Osteophytic ridging wi th moderate LEFT and mild to moderate RIGHT foraminal narrowing. Mild facet arthropathy. Visualized pelvic bony structures: Normal. Paravertebral soft tissues: Normal. MR/MR lumbar spine wo con* [id number] IMPRESSION: Disc space narrowing L2-L5 has progressed since 2013. Narrowing of the thecal sac at L2-L3 L3-L4 and L4-L5 has progressed compared to 2013. 1. Mild lumbar curve. No acute compression. Slight retrolisthesis L2 on L3, L 3 on L4, and L4 on L5. 2. Chronic spondylolysis L5-S1 with associated sclerosis. Slight anterolisthes is L5 on S1. 3. Moderate narrowing of the thecal sac L3-L4 due to disc osteophytic ridging in combination with prominent dorsal epidural fat. Impingement on the traversin g L4 nerve roots bilaterally. Mild narrowing of the thecal sac L2-L3 with promi nent dorsal epidural fat. 4. Mild central canal stenosis L4-L5 with a small RIGHT subarticular protrusio n. Impingement traversing RIGHT L5 nerve root with mild central canal stenosis. 5. Moderate LEFT L3-L4 and RIGHT L4-L5 foraminal narrowing. Moderate L5-S1 for aminal narrowing LEFT greater than RIGHT. 6. Moderate facet arthropathy L3-L4 and L4-L5
== END 2022-01-09 12:39 | disposition home or self-care (01) ==
LOC: RAD 12:39
PROVIDERS: PCP Internal Medicine; Visit Provider Internal Medicine Rheumatology
DX: M47.897 Other spondylosis, lumbosacral region (principal); M48.061 Spinal stenosis, lumbar region without neurogenic claudication; G89.29 Other chronic pain; M54.9 Dorsalgia, unspecified
CPT/HCPCS: 72148

== ENCOUNTER → 2022-01-15 13:56 | Outpatient (BNVA) | payer MEDICARE, BC, SELFPAY | PROVIDERS: PCP Internal Medicine; Visit Provider Physician Assistant | DX: M51.37 Other intervertebral disc degeneration, lumbosacral region (principal); M48.062 Spinal stenosis, lumbar region with neurogenic claudication; M17.0 Bilateral primary osteoarthritis of knee | CPT/HCPCS: 72110; 73560; 73565; 99203; 99204 ==

== ENCOUNTER → 2022-01-22 13:00 | Outpatient (BNVA) | payer MEDICARE, BC, SELFPAY | PROVIDERS: PCP Internal Medicine; Visit Provider Student in an Organized Health Care Education/Training Program | DX: M17.0 Bilateral primary osteoarthritis of knee (principal) | CPT/HCPCS: 20610; 99203; 99204; J3301 ==

== ENCOUNTER → 2022-01-29 13:14 | Outpatient (BNVA) | payer MEDICARE, BC, SELFPAY | PROVIDERS: PCP Internal Medicine; Visit Provider Internal Medicine Rheumatology | DX: M31.5 Giant cell arteritis with polymyalgia rheumatica (principal); Z71.89 Other specified counseling; Z79.899 Other long term (current) drug therapy; M51.37 Other intervertebral disc degeneration, lumbosacral region; N18.30 Chronic kidney disease, stage 3 unspecified; M81.0 Age-related osteoporosis without current pathological fracture; Z96.642 Presence of left artificial hip joint; M15.9 Polyosteoarthritis, unspecified; I87.2 Venous insufficiency (chronic) (peripheral); E89.2 Postprocedural hypoparathyroidism | CPT/HCPCS: 99214 ==

== ENCOUNTER 2022-01-31 11:35 | Outpatient (CLI) | payer MEDICARE, BC, SELFPAY ==
[2022-01-31 12:10] LABS: Basophils % 0.3 %; Eosinophils # 0.1 10^3/uL (0.0-0.8); Eosinophils % 1.5 %; Hematocrit 34.7 % (37.0-47.0); Hemoglobin 11.4 g/dL (11.5-15.3); Lymphocytes # 1.2 10^3/uL (0.8-4.8); Lymphocytes % 15.7 %; Mean Corpuscular HGB Conc 32.9 g/dL (30.0-36.0); Mean Corpuscular Hemoglobin 34.5 pg (28.0-34.0); Mean Corpuscular Volume 105.2 fl (81-99); Mean Platelet Volume 9.2 fL (7.4-10.4); Monocytes # 0.8 10^3/uL (0.2-0.9); Monocytes % 10.7 %; Neutrophils # 5.51 10^3/uL (1.8-7.7); Neutrophils % 70.4 %; Nucleated Red Blood Cells % 0 %; Platelet Count 276 10^3/cmm (130-400); Red Cell Distribution Width 12.5 % (12.1-15.1); White Blood Count 7.8 10^3/uL (4.0-10.0)
[2022-01-31 12:12] VITALS: BP 174/72; PULSE 65; RESP 18; TEMP 36.3; O2SAT 95
[2022-01-31 12:19] LABS: Erythrocyte Sedimentation Rate 1 mm/hr (0-15)
[2022-01-31] MEDS: sodium chloride 0.9% 250 ML 50 ML IV (12:25)
[2022-01-31] MEDS: acetaminophen 325 mg Tablet 650 MG PO (12:26)
[2022-01-31] MEDS: diphenhydrAMINE 50 mg/mL SDV 1mL 25 MG IVP (12:27)
[2022-01-31 12:43] LABS: Alanine Aminotransferase 16 U/L (0-33); Albumin Level 3.9 g/dL (3.5-5.2); Alkaline Phosphatase 48 U/L (35-105); Globulin 2.1 g/dL (1.3-4.6); Total Bilirubin 0.4 mg/dL (0.15-1.2)
[2022-01-31 12:47] LABS: Aspartate Amino Transferase 18 U/L (0-32)
[2022-01-31 13:59] VITALS: BP 160/78; PULSE 66; RESP 18; TEMP 36.3; O2SAT 98
== END 2022-01-31 11:36 | disposition home or self-care (01) ==
PROVIDERS: PCP Internal Medicine; Visit Provider Internal Medicine Rheumatology
DX: M31.6 Other giant cell arteritis (principal); Z79.899 Other long term (current) drug therapy
CPT/HCPCS: 80076; 82565; 85025; 85651; 96365; 96375; J1200; J2920; J3262; J7050

== ENCOUNTER → 2022-02-04 08:42 | Outpatient (BNVA) | payer MEDICARE, BC, SELFPAY | PROVIDERS: PCP Internal Medicine; Visit Provider Anesthesiology Pain Medicine | DX: G89.29 Other chronic pain (principal); M48.062 Spinal stenosis, lumbar region with neurogenic claudication; M51.37 Other intervertebral disc degeneration, lumbosacral region; M47.816 Spondylosis without myelopathy or radiculopathy, lumbar region; M79.604 Pain in right leg; M79.605 Pain in left leg | CPT/HCPCS: 99205 ==

== ENCOUNTER → 2022-02-19 14:03 | Outpatient (BNVA) | payer MEDICARE, BC, SELFPAY | PROVIDERS: PCP Internal Medicine; Visit Provider Anesthesiology Pain Medicine | DX: G89.29 Other chronic pain (principal); M54.16 Radiculopathy, lumbar region | CPT/HCPCS: 64483; 64484 ==

== ENCOUNTER 2022-02-28 11:39 | Outpatient (CLI) | payer MEDICARE, BC, SELFPAY ==
[2022-02-28 11:58] VITALS: BP 145/65; PULSE 72; RESP 18; TEMP 36.7; O2SAT 97
[2022-02-28] MEDS: sodium chloride 0.9% 250 ML 50 ML IV (12:28)
[2022-02-28] MEDS: acetaminophen 325 mg Tablet 650 MG PO (12:29)
[2022-02-28] MEDS: diphenhydrAMINE 50 mg/mL SDV 1mL 25 MG IVP (12:32)
[2022-02-28 13:48] VITALS: BP 162/79; PULSE 69; RESP 18; TEMP 36.3; O2SAT 98
== END 2022-02-28 11:40 | disposition home or self-care (01) ==
LOC: ONCMED 11:40
PROVIDERS: PCP Internal Medicine; Visit Provider Internal Medicine Rheumatology
DX: M31.6 Other giant cell arteritis (principal)
CPT/HCPCS: 96375; 96413; J1200; J2920; J3262; J7050

== ENCOUNTER → 2022-03-05 11:08 | Outpatient (BNVA) | payer MEDICARE, BC, SELFPAY | PROVIDERS: PCP Internal Medicine; Visit Provider Anesthesiology Pain Medicine | DX: G89.29 Other chronic pain (principal); M48.062 Spinal stenosis, lumbar region with neurogenic claudication; M51.37 Other intervertebral disc degeneration, lumbosacral region; M47.816 Spondylosis without myelopathy or radiculopathy, lumbar region; M79.604 Pain in right leg; M79.605 Pain in left leg; M17.0 Bilateral primary osteoarthritis of knee; Z71.89 Other specified counseling | CPT/HCPCS: 99213; 99214 ==

== ENCOUNTER → 2022-03-12 13:23 | Outpatient (BNVA) | payer MEDICARE, BC, SELFPAY | PROVIDERS: PCP Internal Medicine; Visit Provider Anesthesiology Pain Medicine | DX: G89.29 Other chronic pain (principal); M54.16 Radiculopathy, lumbar region | CPT/HCPCS: 62323; J1040; J3490 ==

== ENCOUNTER → 2022-03-27 12:36 | Outpatient (BNVA) | payer MEDICARE, BC, SELFPAY | PROVIDERS: PCP Internal Medicine; Visit Provider Anesthesiology Pain Medicine | DX: G89.29 Other chronic pain (principal); M48.062 Spinal stenosis, lumbar region with neurogenic claudication; M51.37 Other intervertebral disc degeneration, lumbosacral region; M47.816 Spondylosis without myelopathy or radiculopathy, lumbar region; M79.604 Pain in right leg; M79.605 Pain in left leg | CPT/HCPCS: 99214 ==

== ENCOUNTER → 2022-03-29 10:36 | Outpatient (BNVA) | payer MEDICARE, BC, SELFPAY | PROVIDERS: PCP Internal Medicine; Visit Provider Student in an Organized Health Care Education/Training Program | DX: M17.0 Bilateral primary osteoarthritis of knee (principal) | CPT/HCPCS: 20610; 99214; J3301 ==

== ENCOUNTER 2022-04-01 11:37 | Outpatient (CLI) | payer MEDICARE, BC, SELFPAY ==
[2022-04-01 12:25] VITALS: BP 181/71; PULSE 71; RESP 18; TEMP 36.3; O2SAT 96
[2022-04-01 12:40] LABS: Basophils % 0.5 %; Eosinophils # 0.1 10^3/uL (0.0-0.8); Hematocrit 33.6 % (37.0-47.0); Hemoglobin 11.3 g/dL (11.5-15.3); Lymphocytes # 1.5 10^3/uL (0.8-4.8); Lymphocytes % 18.6 %; Mean Corpuscular HGB Conc 33.6 g/dL (30.0-36.0); Mean Platelet Volume 9.5 fL (7.4-10.4); Monocytes % 12.5 %; Neutrophils % 66.8 %; Nucleated Red Blood Cells % 0 %; Platelet Count 260 10^3/cmm (130-400); Red Blood Count 3.23 10^6/uL (4.1-5.3); Red Cell Distribution Width 12.6 % (12.1-15.1); White Blood Count 7.9 10^3/uL (4.0-10.0)
[2022-04-01 12:45] LABS: Erythrocyte Sedimentation Rate < 1 mm/hr (0-15)
[2022-04-01] MEDS: sodium chloride 0.9% 250 ML 50 ML IV (12:45)
[2022-04-01] MEDS: acetaminophen 325 mg Tablet 650 MG PO (12:46)
[2022-04-01] MEDS: diphenhydrAMINE 50 mg/mL SDV 1mL 25 MG IVP (12:48)
[2022-04-01 13:05] LABS: Albumin Level 4.1 g/dL (3.5-5.2); Alkaline Phosphatase 40 U/L (35-105); Globulin 2.4 g/dL (1.3-4.6); Total Bilirubin 0.3 mg/dL (0.15-1.2); Total Protein 6.5 g/dL (6.6-8.7)
[2022-04-01 13:10] LABS: Alanine Aminotransferase 18 U/L (0-33); Aspartate Amino Transferase 23 U/L (0-32)
[2022-04-01 14:06] VITALS: BP 183/69; PULSE 65; RESP 18; TEMP 36.6; O2SAT 95
== END 2022-04-01 11:38 | disposition home or self-care (01) ==
PROVIDERS: PCP Internal Medicine; Referring Provider Internal Medicine Rheumatology; Visit Provider Internal Medicine Rheumatology
DX: M31.6 Other giant cell arteritis (principal)
CPT/HCPCS: 80076; 82565; 85025; 85651; 96365; 96375; J1200; J2920; J3262; J7050

== ENCOUNTER → 2022-04-08 12:42 | Outpatient (BNVA) | payer MEDICARE, BC, SELFPAY | PROVIDERS: PCP Internal Medicine; Visit Provider Internal Medicine | DX: E89.2 Postprocedural hypoparathyroidism (principal); E89.0 Postprocedural hypothyroidism; M81.0 Age-related osteoporosis without current pathological fracture; Z79.890 Hormone replacement therapy | CPT/HCPCS: 99214 ==

== ENCOUNTER → 2022-04-16 13:49 | Outpatient (BNVA) | payer MEDICARE, BC, SELFPAY | PROVIDERS: PCP Internal Medicine; Visit Provider Physician Assistant | DX: M48.062 Spinal stenosis, lumbar region with neurogenic claudication (principal); M51.37 Other intervertebral disc degeneration, lumbosacral region | CPT/HCPCS: 99213 ==

== ENCOUNTER → 2022-05-06 14:56 | Outpatient (BNVA) | payer MEDICARE, BC, SELFPAY | PROVIDERS: PCP Internal Medicine; Visit Provider Student in an Organized Health Care Education/Training Program | DX: M17.0 Bilateral primary osteoarthritis of knee (principal) | CPT/HCPCS: 99213 ==

== ENCOUNTER 2022-05-09 12:34 | Outpatient (CLI) | payer MEDICARE, BC, SELFPAY ==
[2022-05-09 12:59] VITALS: BP 172/79; PULSE 63; RESP 18; TEMP 36.2; O2SAT 95
[2022-05-09] MEDS: sodium chloride 0.9% 250 ML 50 ML IV (13:25)
[2022-05-09] MEDS: acetaminophen 325 mg Tablet 650 MG PO (13:26)
[2022-05-09] MEDS: diphenhydrAMINE 50 mg/mL SDV 1mL 25 MG IVP (13:28)
[2022-05-09 14:52] VITALS: BP 151/65; PULSE 64; RESP 18; TEMP 36.3; O2SAT 96
== END 2022-05-09 12:35 | disposition home or self-care (01) ==
LOC: ONCMED 12:35
PROVIDERS: PCP Internal Medicine; Visit Provider Internal Medicine Rheumatology
DX: M31.6 Other giant cell arteritis (principal)
CPT/HCPCS: 96365; 96375; J1200; J2920; J3262; J7050

== ENCOUNTER 2022-05-10 12:17 | Outpatient (CLI) | payer MEDICARE, BC, SELFPAY | END 2022-05-10 12:18 | disposition home or self-care (01) | LOC: RT 05-13 12:19 | PROVIDERS: PCP Internal Medicine; Visit Provider Orthopaedic Surgery | DX: Z13.6 Encounter for screening for cardiovascular disorders (principal); I21.9 Acute myocardial infarction, unspecified | CPT/HCPCS: 93005 ==

== ENCOUNTER 2022-05-17 11:02 | Day surgery (SDC) | payer MEDICARE, BC, SELFPAY ==
[2022-05-10 09:06] VITALS: BMI 40.6
--- NOTE | 2022-05-10 09:10 | ECG_ITS ---
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 Measurements Intervals [place] Rate: 75 P: 34 OH: 154 QRS: 19 QRSD: 76 T: 35 QT: 366 QTc: 409 Interpretive Statements SINUS RHYTHM LOW QRS VOLTAGE IN PRECORDIAL LEADS [QRS DEFLECTION < 1.0 mV IN CHEST LEADS] SEPTAL MYOCARDIAL INFARCTION , PROBABLY OLD [40+ ms Q WAVE IN V1/V2] Compared to ECG 02/10/2021 02:02:04 No significant changes Electronically Signed On 05-10-2022 16:53:17 VALUER by Sridevi Vila M.D. [id number]
--- NOTE | 2022-05-10 09:26 | ANES.PREANE2 ---
Pre-Anesthetic Assessment Height/Weight: Height 1.52 m Weight 94.347 kg Preop Diagnosis: Dyspnea on exertion/Abnormal stress test Operation Date: 05/17/22 10:40 Proposed Procedures p Lumbar Spine Decompression L4/5 L5/1S /[id number] M54.9(Not Applicable) - Romario Menjivar, Familial anesthetic complications: none Social No alcohol and No tobacco Exam alert, oriented x 3, clear to auscultation bilaterally and regular rate & rhythm Airway Mallampati: Class III Dentition: full Pulmonary Exertional Dyspnea and Sleep Apnea CV/HEM Stable Angina, Congestive Heart Failure and Hypertension 08/17 cath Conclusions ? 1. Non obstructive coronary artery disease. ? 2. Moderate distal RCA disease. ? 3. Elevated LVEDP. Recommendations ? * Aggressive risk factor modification. ? * LVEDP is elevated. Patient will benefit from increased diuresis, however has significant hypocalcemia history and will need close follow up once lasix dose is increased. ? * Outpatient cardiology follow up in 4 weeks. 03/05/21 sestamibi Conclusion: 1.? Normal EKG response to Lexiscan infusion 2.? No Lexiscan induced chest pain or cardiac arrhythmia. 3.? Normal blood pressure and heart rate response. 4.? Sestamibi/sestamibi perfusion scan pending; see separate report. 03/18 perfusion scan IMPRESSIONS ?1. Abnormal myocardial perfusion imaging with ischemia noted in the apical ?lateral and lateral shaw ?2. LV systolic function is normal 12/16 echo CONCLUSIONS ?LV systolic function is normal with EF of 60-65% ?Grade 1 diastolic dysfunction ?Mild aortic regurgitation ?Mild tricuspid regurgitation ?No comparsion studies are available Chronic Renal Insufficiency Hepatic None reported GI Gastroesophageal Reflux Disease Metabolic Morbid Obesity and Thyroid Disease [facility] Lower Back Pain and Osteoarthritis/DJD polymyalgia rheumatica Neuropsych None reported Anesthetic Plan ASA status: 4 Anesthesia: General Risk of > 500 ml blood loss (7ml/kg in children): No Medications/Allergies Home Medications Medication Instructions Recorded Confirmed Last Taken Type acetaminophen 500 mg tablet 1,000 mg PO TID 01/12/20 05/10/22 05/10/22 History (Tylenol Extra Strength) aspirin 81 mg tablet,delayed 81 mg PO BEDTIME 01/12/20 05/10/22 05/09/22 History release rosuvastatin 5 mg tablet 5 mg PO DAILY 01/12/20 05/10/22 05/10/22 History levocetirizine 5 mg tablet 5 mg PO BEDTIME 11/30/20 05/10/22 05/10/22 History multivitamin with minerals 1 tab PO DAILY 11/30/20 05/10/22 05/10/22 History carvedilol 3.125 mg tablet 3.125 mg PO BID 12/28/20 05/10/22 05/10/22 History furosemide 20 mg tablet (Lasix) 20 mg PO DAILY #30 tabs 02/13/21 05/10/22 05/10/22 Rx calcium carbonate 400 mg calcium 400 mg PO DAILY 04/01/21 05/10/22 05/10/22 History (1,000 mg) chewable tablet (KXENs Ultra) tocilizumab 400 mg/20 mL (20 IV 10/09/21 05/06/22 05/09/22 History mg/mL) intravenous solution (Actemra) tramadol 50 mg tablet 50 mg PO TID take for moderate to 11/21/21 05/10/22 Unknown Rx severe pain PRN #60 tabs gabapentin 300 mg capsule 300 mg PO TID #90 caps 01/29/22 05/10/22 05/10/22 Rx pantoprazole 40 mg tablet,delayed See Rx Instructions .Route 01/29/22 05/10/22 05/10/22 Rx release .COMPLEX #90 tabs prednisone 5 mg tablet 5 mg PO DAILY #90 tabs 01/29/22 05/10/22 05/10/22 Rx copper gluconate 2 mg tablet 2 mg PO DAILY 02/04/22 05/10/22 05/10/22 History levothyroxine 88 mcg tablet 88 mcg PO 0600 #90 tabs 03/01/22 05/10/22 05/10/22 Rx calcitriol 0.25 mcg capsule 0.25 mcg PO DAILY #90 caps 04/09/22 05/10/22 05/10/22 Rx (Rocaltrol) Allergies Allergy/AdvReac Type Severity Reaction Status Date / Time adhesive Allergy Rash Verified 05/10/22 08:59 COUNTS INCLUDE 234 BEDS AT THE [facility] Anesthesia Medical History Anemia, unspecified CKD (chronic kidney disease) stage 3, GFR 30-59 ml/min GERD (gastroesophageal reflux disease) Giant cell arteritis Heart failure Hypercalcemia Hypertension Hypocalcemia Osteoporosis PMR (polymyalgia rheumatica) 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 Right temporal headache Surgical History H/O thyroidectomy History of arthroscopy of right knee History of left hip replacement History of temporal artery biopsy (09/13/20) Status post colonoscopy Family History Father CAD (coronary artery disease) Prostate cancer Mother CAD (coronary artery disease) Sister Blood disorder Other Cancer Diabetes Hypertension Stroke Denies family history of Rheumatoid arthritis Systemic lupus erythematosus (SLE) in adult Social History Smoking and tobacco status: never smoked Second hand smoke exposure: No Smoking risk assessment/counseling performed?: No Alcohol intake: never Desire information about alcohol rehabilitation?: No Counseling given: No Desire information about substance/drug rehabilitation?: No Counseling given: No Adopted: No Caregiver/support person: No Lives independently: Yes Household members: none Housing: House Marital status: / Number of children: 2 Highest education level completed: High School Graduate service: No Current occupational status: retired History of recent travel: No Sexually active: No Current gender identity: Female Agree to transfusion: Yes Data Anesthesia Cardiac Studies: Echocardiogram 12/01/20 Sestamibi Stress Test (Cardiology) 03/05/21
[2022-05-10 09:52] LABS: Basophils % 0.2 %; Eosinophils % 0.1 %; Hematocrit 33.9 % (37.0-47.0); Hemoglobin 11.3 g/dL (11.5-15.3); Lymphocytes # 1.4 10^3/uL (0.8-4.8); Lymphocytes % 10.4 %; Mean Corpuscular HGB Conc 33.3 g/dL (30.0-36.0); Mean Corpuscular Hemoglobin 34.9 pg (28.0-34.0); Mean Corpuscular Volume 104.6 fl (81-99); Mean Platelet Volume 8.9 fL (7.4-10.4); Monocytes # 0.8 10^3/uL (0.2-0.9); Monocytes % 6.3 %; Neutrophils # 10.75 10^3/uL (1.8-7.7); Neutrophils % 80.2 %; Nucleated Red Blood Cells % 0 %; Platelet Count 353 10^3/cmm (130-400); Red Blood Count 3.24 10^6/uL (4.1-5.3); Red Cell Distribution Width 12.7 % (12.1-15.1); White Blood Count 13.4 10^3/uL (4.0-10.0)
[2022-05-10 10:04] LABS: Anion Gap 15.9 (5-19); Blood Urea Nitrogen 20 mg/dL (8-23); Calcium 9.3 mg/dL (8.5-10.5); Carbon Dioxide 24 mmol/L (22-29); Chloride 102 mmol/L (98-107); Glucose 122 mg/dL (65-115); Osmolality Calculated 290 mOsm/kg (285-295); Potassium 3.9 mmol/L (3.5-5.1); Sodium 138 mmol/L (136-145)
[2022-05-17] VITALS (8 sets, daily range): BP systolic 154–227; BP diastolic 60–95; PULSE 61–84; RESP 13–20; TEMP 36.1–36.5; O2SAT 93–100
--- NOTE | 2022-05-17 | XR_ITS ---
WS: [id number] XR lumbar spine 1V [id number] REASON FOR EXAM: OR pic. right sided L4-5, L5-S1 decompression FINDINGS: Surgical device overlying the right side of the L5-S1 disc space. Surgical instrument overlying the right side of the L4-L5 disc space. XR/XR lumbar spine 1V [id number] IMPRESSION: Intraoperative lumbar spine localizations as above.
[2022-05-17] MEDS: sodium chloride 0.9% 1,000 ML 30 ML IV (12:31)
--- NOTE | 2022-05-17 12:40 | W.PM.OPSUD ---
Surgery/Procedure H&P Update DATE OF PROCEDURE: May 17, 2022 DATE H&P PERFORMED: 04/16/22 H&P UPDATE INFORMATION: I have reviewed H&P completed within last 30 days, I have examined patient prior to procedure and No changes to prior documentation PREOP DIAGNOSIS: Lumbar stenosis with neurogenic claudication PLANNED PROCEDURE: Operation Date: 05/17/22 13:05 Proposed Procedures p Lumbar Spine Decompression L4/5 L5/1S /[id number] M54.9(Not Applicable) - Romario Menjivar DO
--- NOTE | 2022-05-17 12:49 | ANES.PAUD2 ---
Pre-Anesthetic Update Pre-Anesthetic Assessment: Date of Surgery/Procedure: 05/17/22 Preop Diagnosis: Lumbar stenosis with neurogenic claudication Proposed Procedure: Operation Date: 05/17/22 13:05 Proposed Procedures p Lumbar Spine Decompression L4/5 L5/1S /[id number] M54.9(Not Applicable) - Romario Menjivar, DO Any changes to Pre-Anesthetic Assessment?: No Last Intake: Intake Last Liquid Date 05/17/22 Last Liquid Time 06:00 Last Solid Date 05/16/22 Last Solid Time 18:00 Vitals: Temperature 97.7 F 05/17/22 12:11 Temperature Source Temporal Artery S can 05/17/22 12:11 Pulse Rate 65 05/17/22 12:11 Respiratory Rate 18 05/17/22 12:11 Blood Pressure 160/60 05/17/22 12:11 Blood Pressure Kimmie n 93 05/17/22 12:11 Pulse Oximetry 95 05/17/22 12:11 Oxygen Delivery Me thod 05/17/22 12:17 Exam: Pre-Anes Outpt Exam: alert, oriented x 3, clear to auscultation bilaterally and regular rate & rhythm Cardiac Studies: Echocardiogram 12/01/20 Sestamibi Stress Test (Cardiology) 03/05/21
[2022-05-17] MEDS: ceFAZolin 2,000 MG in sodium chloride 0.9% (plus) 50 ML 100 MG IV (12:58)
[2022-05-17] MEDS: labetalol 5 mg/mL SDV 20mL 10 MG IVP (15:00)
--- NOTE | 2022-05-17 15:11 | ANE.PACU2 ---
Inpatient post-anesthesia follow up: Airway intact: Yes Vital signs: Temperature 97.0 F Pulse Rate 61 Respiratory Rate 20 Blood Pressure 204/88 Pulse Oximetry 93 Oxygen Delivery Me thod Room Air Oxygen Flow Rate 6 Fraction of Inspir ed Oxygen Hydration adequate: Yes Nausea and vomiting: No Pain level: 2 Mental status: Baseline
--- NOTE | 2022-05-17 15:34 | PM.OP ---
Operative Report Date of procedure: May 17, 2022 Pre-op diagnosis: Preop Diagnosis Lumbar stenosis with neurogenic claudication Post-op diagnosis: same Procedure done: 1. L4/5 Laminectomy with partial facetectomy 2. L5/S1 laminectomy with partial facetectomy Surgeon: Romario Menjivar Department Supervisor: none Estimated blood loss (mL): 5 Procedure: 1. L4/5 Laminectomy with partial facetectomy 2. L5/S1 laminectomy with partial facetectomy Patient is brought to the operative suite. After undergoing anesthesia they are placed in the prone position. All areas of impingement are well padded. Patient is then prepped and draped in the normal sterile fashion. A skin incision is made over the L4/5 level. This is confirmed under c-arm guidance. A series of dilators are passed and the tubular retractor is docked on the L4 lamina. A bovie is used to clear the soft tissue off the lamina and the L 4/5 facet joint. A high speed ayleen is then used to perform the laminectomy and take down the medial aspect of the L 4/5 facet joint. A kerrison rongeure was then used to take down the remaining lamina and smooth the edge of the laminectomy up to the point where the ligamentum flavum attaches. Attention was then brought to the medial aspect of the facet joint. The remaining medial aspect of the superior and inferior aspect of the facet joint were taken down with the kerrison from the pedicle of L4 to L 5. The facet joint had significant hypertrophy. Attention was then brought to the Ligamentum Flavum. The ligament was taken down from the lamina of L4 to L5 and out medially to the remaining facet joint. The ligament was thick. The dura was then exposed. The dura was in good repair. The L4 nerve was then traced with a curette out the L4/5 foramen and found to be adequately decompressed. The L5 nerve was traced with a curette around the L5 pedicle. The lateral recess was opened with a kerrison helping to further decompress the L5 nerve. Wound is then irrigated copiously with saline and surgiflo is used to stop any bleeding. The tubular retractor is removed and A skin incision is made over the L5/S1 level. This is confirmed under c-arm guidance. A series of dilators are passed and the tubular retractor is docked on the L5 lamina. A bovie is used to clear the soft tissue off the lamina and the L 5/S1 facet joint. A high speed ayleen is then used to perform the laminectomy and take down the medial aspect of the L 5/S1 facet joint. A kerrison rongeure was then used to take down the remaining lamina and smooth the edge of the laminectomy up to the point where the ligamentum flavum attaches. Attention was then brought to the medial aspect of the facet joint. The remaining medial aspect of the superior and inferior aspect of the facet joint were taken down with the kerrison from the pedicle of L5 to S1. The facet joint had significant hypertrophy. Attention was then brought to the Ligamentum Flavum. The ligament was taken down from the lamina of L5 to S1 and out medially to the remaining facet joint. The ligament was thick. The dura was then exposed. The dura was in good repair. The L5 nerve was then traced with a curette out the L5/S1 foramen and found to be adequately decompressed. The S1 nerve was traced with a curette around the S1 pedicle. The lateral recess was opened with a kerrison helping to further decompress the S1 nerve. Wound is then irrigated copiously with saline and surgiflo is used to stop any bleeding. The tubular retractor is removed and the wound is closed with vicryl and monocryl suture. Glue is then used to protect the wound. A sterile dressing is then placed. Patient was then placed in the supine position and transferred to the PACU in stable condition.
--- NOTE | 2022-05-17 15:46 | SUR.PHASEII ---
15:45 pain medication offered.pt declined.
[2022-05-17 16:11] LABS: Glucose Point of Care 121 mg/dL (70-110)
--- NOTE | 2022-05-17 17:20 | PC.NURSE ---
pt up to chair to dress prior to discharge. dressing saturated through, blood escaped and running down her back. Dressing changed with same silver dressing from OR.
--- NOTE | 2022-05-20 12:53 | P.HP_ITS ---
Providers/Chief Complaint Primary Care Provider: Leti Ocasio MD Chief Complaint: Lumbar Decompression L4/5 L5/1S [id number] History of Present Illness Maggie Jeffers is a 82 year old female [birth year] with walking. She states laying down and sitting is ok.? Admits to having more leg pain right greater than left than back pain. Review of Systems Const: Denies: fever(s), chills, body aches, fatigue or change in sleep pattern Eyes: Denies: change in vision Musc: Reports: neck pain, back pain and limited range of motion; Denies: extremity pain, extremity swelling, joint pain or joint swelling Neuro: Reports: numbness in extremities; Denies: headache(s) or difficulty walking Medications/Allergies Home Medications Medication Instructions Recorded Confirmed Last Taken Type acetaminophen 500 mg tablet 1,000 mg PO TID 01/12/20 05/10/22 05/16/22 History (Tylenol Extra Strength) aspirin 81 mg tablet,delayed 81 mg PO BEDTIME 01/12/20 05/10/22 05/09/22 History release rosuvastatin 5 mg tablet 5 mg PO DAILY 01/12/20 05/10/22 05/16/22 History levocetirizine 5 mg tablet 5 mg PO BEDTIME 11/30/20 05/10/22 05/16/22 History multivitamin with minerals 1 tab PO DAILY 11/30/20 05/10/22 05/16/22 History carvedilol 3.125 mg tablet 3.125 mg PO TID 12/28/20 05/17/22 05/16/22 History furosemide 20 mg tablet (Lasix) 20 mg PO DAILY #30 tabs 02/13/21 05/10/22 05/15/22 Rx calcium carbonate 400 mg calcium 400 mg PO DAILY 04/01/21 05/10/22 05/16/22 History (1,000 mg) chewable tablet (Tums Ultra) tocilizumab 400 mg/20 mL (20 IV 10/09/21 05/10/22 05/09/22 History mg/mL) intravenous solution (Actemra) tramadol 50 mg tablet 50 mg PO TID take for moderate to 11/21/21 05/10/22 Unknown Rx severe pain PRN #60 tabs gabapentin 300 mg capsule 300 mg PO TID #90 caps 01/29/22 05/10/22 05/16/22 Rx pantoprazole 40 mg tablet,delayed See Rx Instructions .Route 01/29/22 05/10/22 05/17/22 Rx release .COMPLEX #90 tabs prednisone 5 mg tablet 5 mg PO DAILY #90 tabs 01/29/22 05/10/22 05/16/22 Rx copper gluconate 2 mg tablet 2 mg PO DAILY 02/04/22 05/10/22 05/16/22 History levothyroxine 88 mcg tablet 88 mcg PO 0600 #90 tabs 03/01/22 05/10/22 05/17/22 Rx calcitriol 0.25 mcg capsule 0.25 mcg PO DAILY #90 caps 04/09/22 05/10/22 05/16/22 Rx (Rocaltrol) hydrocodone 5 mg-acetaminophen 325 1 - 2 tab PO .Q4-6H #40 tabs 05/17/22 Unk nown Rx mg tablet Allergies Allergy/AdvReac Type Severity Reaction Status Date / Time adhesive Allergy Rash Verified 05/10/22 09:48 PFSH Acute PFSH: Medical History Anemia, unspecified CKD (chronic kidney disease) stage 3, GFR 30-59 ml/min GERD (gastroesophageal reflux disease) Giant cell arteritis Heart failure Hypercalcemia Hypertension Hypocalcemia Osteoporosis PMR (polymyalgia rheumatica) 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 Right temporal headache Surgical History H/O thyroidectomy History of arthroscopy of right knee History of left hip replacement History of temporal artery biopsy (09/13/20) Status post colonoscopy Family History Father CAD (coronary artery disease) Prostate cancer Mother CAD (coronary artery disease) Sister Blood disorder Other Cancer Diabetes Hypertension Stroke Denies family history of Rheumatoid arthritis Systemic lupus erythematosus (SLE) in adult Social History Smoking and tobacco status: never smoked Second hand smoke exposure: No Smoking risk assessment/counseling performed?: No Alcohol intake: never Desire information about alcohol rehabilitation?: No Counseling given: No Desire information about substance/drug rehabilitation?: No Counseling given: No Adopted: No Caregiver/support person: No Lives independently: Yes Household members: none Housing: House Marital status: / Number of children: 2 Highest education level completed: High School Graduate service: No Current occupational status: retired History of recent travel: No Sexually active: No Current gender identity: Female Agree to transfusion: Yes Vitals/I&O/Wt Last Vital Signs Temp 97.5 F L 05/17/22 15:45 Pulse 65 05/17/22 15:45 Resp 16 05/17/22 15:45 BP 158/94 05/17/22 15:45 Pulse Ox 94 05/17/22 15:45 O2 Del Method 05/17/22 15:45 O2 Flow Rate 6 05/17/22 14:50 Physical Exam Narrative: CONSTITUTIONAL: The patient is a normal appearing [] in no apparent distress. GENERAL: Patient in no acute distress. CARDIAC: Regular rate and rhythm. CHEST: Normal inspiratory effort, normal respiratory rate. ABDOMEN: Soft and nontender. SKIN: Clear, warm and intact. NEURO?PSYCH: The patient is alert and oriented to person, place and time. Sensorv /SILT Motor StrengthShoulder abduction C5 5/5Wrist extension C6 5/5Elbow extension C7 5/5Hand Roller Bearing Inspector C8 5/5Finger abduction T15/5 Radial/ Ulnar/ Median n intact LowerSensory (SILT)Motor StrengthHin flexion L2/3Ant/inner thigh 5/5Hip adduction L2/3 5/5Knee extension L4 Lat thigh, 5/5Toe dorsiflexion L5 5/5Ankle dorsiflexion L5/ D21Hastnzh flexion S1 5/5 DTRBleeps 2+Triceps 2+Brachioradialis 2+Patellar 2+Achilles 2+ MUSCULOSKELETAL: [] UPPEREXTREMITIES: The patient had full active ROM in fingers, wrist, elbow, and shoulder. The patient demonstrated ability to fully flex/extend/abduct/adduct fingers, make ok sign, cross 2nd/3rd digits, extend 1st digit fully.. Radial pulse 2+, CR<2 seconds. LOWER EXTREMITIES: Pt has full, active ROM of toes, ankle, knee, and hip. Dorsalis pedis/posterior tibialis pulses 2+, CR<2 seconds. SPINE: Skin warm, dry, intact. Data 05/10/22 09:30 05/10/22 09:30 A&P Assessment and plan (1) Lumbar stenosis with neurogenic claudication: Lumbar decompression Attestations Medical Necessity Statement*: failed conservative tx Coding Level of Care Code Acute Code for Chg Fwd Diagnoses Lumbar stenosis with neurogenic claudication M48.062
== END 2022-05-17 17:48 | disposition home or self-care (01) ==
PROVIDERS: Anesthesiology; PCP Internal Medicine; Visit Provider Orthopaedic Surgery
PROC: (CPT 63005; principal; 2022-05-17 12:55)
DX: M48.062 Spinal stenosis, lumbar region with neurogenic claudication (principal); K21.9 Gastro-esophageal reflux disease without esophagitis; I13.0 Hypertensive heart and chronic kidney disease with heart failure and stage 1 through stage 4 chronic kidney disease, or unspecified chronic kidney disease; N18.30 Chronic kidney disease, stage 3 unspecified; I50.9 Heart failure, unspecified; M81.0 Age-related osteoporosis without current pathological fracture; G47.30 Sleep apnea, unspecified; E66.01 Morbid (severe) obesity due to excess calories; Z68.41 Body mass index [BMI] 40.0-44.9, adult; Z79.82 Long term (current) use of aspirin
CPT/HCPCS: 63047; 63048; 36415; 36416; 72020; 76000; 80048; 82962; 85025; J0690; J1100; J2370; J2405; J2704; J2710; J3010; J3490; J7030

== ENCOUNTER → 2022-06-04 09:34 | Outpatient (BNVA) | payer MEDICARE, BC, SELFPAY | PROVIDERS: PCP Internal Medicine; Visit Provider Physician Assistant | DX: M17.0 Bilateral primary osteoarthritis of knee (principal); M48.062 Spinal stenosis, lumbar region with neurogenic claudication; Z98.1 Arthrodesis status | CPT/HCPCS: 99024 ==

== ENCOUNTER 2022-06-06 10:40 | Outpatient (CLI) | payer MEDICARE, BC, SELFPAY ==
[2022-06-06 11:10] VITALS: BP 147/78; PULSE 67; RESP 18; TEMP 36.3; O2SAT 98
[2022-06-06 11:20] LABS: Basophils # 0.1 10^3/uL (0.0-0.1); Basophils % 0.6 %; Eosinophils # 0.1 10^3/uL (0.0-0.8); Eosinophils % 1.1 %; Hematocrit 34.4 % (37.0-47.0); Hemoglobin 11.3 g/dL (11.5-15.3); Lymphocytes # 1.7 10^3/uL (0.8-4.8); Lymphocytes % 15.1 %; Mean Corpuscular HGB Conc 32.8 g/dL (30.0-36.0); Mean Corpuscular Hemoglobin 34.7 pg (28.0-34.0); Mean Corpuscular Volume 105.5 fl (81-99); Mean Platelet Volume 9.2 fL (7.4-10.4); Monocytes # 1.1 10^3/uL (0.2-0.9); Monocytes % 9.9 %; Neutrophils # 7.94 10^3/uL (1.8-7.7); Nucleated Red Blood Cells % 0 %; Platelet Count 271 10^3/cmm (130-400); Red Blood Count 3.26 10^6/uL (4.1-5.3)
[2022-06-06 11:27] LABS: Erythrocyte Sedimentation Rate < 1 mm/hr (0-15)
[2022-06-06 11:39] LABS: Alanine Aminotransferase 19 U/L (0-33); Albumin Level 4.2 g/dL (3.5-5.2); Alkaline Phosphatase 46 U/L (35-105); Aspartate Amino Transferase 18 U/L (0-32); Globulin 1.9 g/dL (1.3-4.6); Total Bilirubin 0.5 mg/dL (0.15-1.2); Total Protein 6.1 g/dL (6.6-8.7)
[2022-06-06] MEDS: sodium chloride 0.9% 250 ML 50 ML IV (11:42)
[2022-06-06] MEDS: acetaminophen 325 mg Tablet 650 MG PO (11:43)
[2022-06-06] MEDS: diphenhydrAMINE 50 mg/mL SDV 1mL 25 MG IVP (11:44)
[2022-06-06 12:59] VITALS: BP 162/84; PULSE 68; RESP 18; TEMP 36.8; O2SAT 99
== END 2022-06-06 10:41 | disposition home or self-care (01) ==
LOC: ONCMED 10:41
PROVIDERS: PCP Internal Medicine; Visit Provider Internal Medicine Rheumatology
DX: M31.6 Other giant cell arteritis (principal); Z79.899 Other long term (current) drug therapy
CPT/HCPCS: 80076; 82565; 85025; 85651; 96365; 96375; J1200; J2920; J3262; J7050

== ENCOUNTER → 2022-06-13 08:36 | Outpatient (BNVA) | payer MEDICARE, BC, SELFPAY | PROVIDERS: PCP Internal Medicine; Visit Provider Internal Medicine | DX: E89.2 Postprocedural hypoparathyroidism (principal); N18.4 Chronic kidney disease, stage 4 (severe); D63.1 Anemia in chronic kidney disease | CPT/HCPCS: 80069; 82043; 82306; 82310; 83970; 84439; 84443; 85025 ==

== ENCOUNTER 2022-06-25 12:48 | Oncology outpatient (recurring) (ONCR) | payer MEDICARE, BC, SELFPAY ==
[2022-06-25 13:24] LABS: Basophils # 0.1 10^3/uL (0.0-0.1); Basophils % 0.7 %; Eosinophils # 0.1 10^3/uL (0.0-0.8); Eosinophils % 1.3 %; Hematocrit 32.8 % (37.0-47.0); Hemoglobin 10.9 g/dL (11.5-15.3); Lymphocytes # 1.4 10^3/uL (0.8-4.8); Lymphocytes % 19.6 %; Mean Corpuscular HGB Conc 33.2 g/dL (30.0-36.0); Mean Corpuscular Hemoglobin 34.7 pg (28.0-34.0); Mean Corpuscular Volume 104.5 fl (81-99); Monocytes # 0.8 10^3/uL (0.2-0.9); Monocytes % 11.9 %; Neutrophils # 4.51 10^3/uL (1.8-7.7); Neutrophils % 65.5 %; Nucleated Red Blood Cells % 0 %; Platelet Count 245 10^3/cmm (130-400); Red Blood Count 3.14 10^6/uL (4.1-5.3); Red Cell Distribution Width 13.1 % (12.1-15.1); White Blood Count 6.9 10^3/uL (4.0-10.0)
[2022-06-25 13:45] LABS: Alanine Aminotransferase 16 U/L (0-33); Albumin Level 4.3 g/dL (3.5-5.2); Alkaline Phosphatase 39 U/L (35-105); Anion Gap 15.2 (5-19); Aspartate Amino Transferase 15 U/L (0-32); Blood Urea Nitrogen 32 mg/dL (8-23); Calcium 10.4 mg/dL (8.5-10.5); Carbon Dioxide 27 mmol/L (22-29); Chloride 100 mmol/L (98-107); Globulin 1.8 g/dL (1.3-4.6); Glucose 104 mg/dL (65-115); Lactate Dehydrogenase 288 U/L (135-214); Osmolality Calculated 293 mOsm/kg (285-295); Potassium 4.2 mmol/L (3.5-5.1); Sodium 138 mmol/L (136-145); Total Bilirubin 0.5 mg/dL (0.15-1.2); Total Protein 6.1 g/dL (6.6-8.7)
[2022-06-25 14:00] LABS: Vitamin B12 313 pg/mL (232-1245)
[2022-06-25 15:02] LABS: Ferritin 267 ng/mL (15-150); Iron 152 ug/dL (37-145); Percent Saturation 60.5 % (20-50); Total Iron Binding Capacity 251 mcg/dl; Unsaturated Iron Binding 99 ug/dL (112-347)
== END 2022-06-25 23:59 | disposition home or self-care (01) ==
PROVIDERS: Nurse Practitioner Family; PCP Internal Medicine; Visit Provider Internal Medicine Medical Oncology
DX: D64.9 Anemia, unspecified (principal); Z98.890 Other specified postprocedural states; E61.0 Copper deficiency; Z79.899 Other long term (current) drug therapy
CPT/HCPCS: 36415; 80053; 82607; 82728; 83540; 83550; 83615; 85025; 99214

== ENCOUNTER → 2022-07-02 09:31 | Outpatient (BNVA) | payer MEDICARE, BC, SELFPAY | PROVIDERS: PCP Internal Medicine; Visit Provider Physician Assistant | DX: Z98.890 Other specified postprocedural states (principal); M47.816 Spondylosis without myelopathy or radiculopathy, lumbar region | CPT/HCPCS: 99024 ==

== ENCOUNTER → 2022-07-03 14:08 | Outpatient (BNVA) | payer MEDICARE, BC, SELFPAY | PROVIDERS: PCP Internal Medicine; Visit Provider Internal Medicine Rheumatology | DX: M31.6 Other giant cell arteritis (principal); Z71.89 Other specified counseling; Z79.899 Other long term (current) drug therapy; M51.37 Other intervertebral disc degeneration, lumbosacral region; N18.30 Chronic kidney disease, stage 3 unspecified; M81.0 Age-related osteoporosis without current pathological fracture; Z79.52 Long term (current) use of systemic steroids | CPT/HCPCS: 99214 ==

== ENCOUNTER → 2022-07-08 10:36 | Outpatient (BNVA) | payer MEDICARE, BC, SELFPAY | PROVIDERS: PCP Internal Medicine; Visit Provider Student in an Organized Health Care Education/Training Program | DX: M17.0 Bilateral primary osteoarthritis of knee (principal); Z71.89 Other specified counseling | CPT/HCPCS: 20610; 99214; J7326 ==

== ENCOUNTER 2022-07-23 11:13 | Oncology outpatient (recurring) (ONCR) | payer MEDICARE, BC, SELFPAY ==
[2022-07-23 11:51] VITALS: BMI 35.4
[2022-07-23] MEDS: sodium chloride 0.9% 250 ML 75 ML IV (12:33)
[2022-07-23] MEDS: acetaminophen 325 mg Tablet 650 MG PO (12:36)
[2022-07-23] MEDS: diphenhydrAMINE 50 mg/mL SDV 1mL 25 MG IVP (12:37)
[2022-07-23 12:55] VITALS: BP 148/66; PULSE 65; RESP 18; TEMP 36.5; O2SAT 98
[2022-07-23] MEDS: tocilizumab 390 MG in sodium chloride 0.9% (100 ml) 100 ML 119.5 MG IV (12:57)
[2022-07-23 14:10] VITALS: BP 162/68; PULSE 72; RESP 18; TEMP 36.8; O2SAT 97
== END 2022-07-26 23:59 | disposition home or self-care (01) ==
PROVIDERS: PCP Internal Medicine; Visit Provider Internal Medicine Medical Oncology
DX: M31.6 Other giant cell arteritis (principal); Z79.899 Other long term (current) drug therapy
CPT/HCPCS: 96365; 96375; J1200; J2920; J3262; J7050

== ENCOUNTER 2022-08-21 12:27 | Oncology outpatient (recurring) (ONCR) | payer MEDICARE, BC, SELFPAY ==
[2022-08-21 12:45] VITALS: BP 168/68; PULSE 77; TEMP 36.5; O2SAT 96
[2022-08-21] MEDS: sodium chloride 0.9% 250 ML 100 ML IV (13:15)
[2022-08-21] MEDS: acetaminophen 325 mg Tablet 650 MG PO (13:16)
[2022-08-21] MEDS: diphenhydrAMINE 50 mg/mL SDV 1mL 25 MG IVP (13:16)
[2022-08-21] MEDS: tocilizumab 390 MG in sodium chloride 0.9% (100 ml) 100 ML 119.5 MG IV (13:40)
[2022-08-21 15:01] VITALS: BP 152/62; PULSE 69; TEMP 36.9; O2SAT 97
== END 2022-08-25 23:59 | disposition home or self-care (01) ==
PROVIDERS: PCP Internal Medicine; Visit Provider Internal Medicine Medical Oncology
DX: M31.6 Other giant cell arteritis (principal); Z79.899 Other long term (current) drug therapy
CPT/HCPCS: 96365; 96375; J1200; J2920; J3262; J7050

== ENCOUNTER 2022-09-25 14:04 | Oncology outpatient (recurring) (ONCR) | payer MEDICARE, BC, SELFPAY ==
[2022-09-18] MEDS: acetaminophen 325 mg Tablet 650 MG PO (13:45)
[2022-09-18] MEDS: diphenhydrAMINE 50 mg/mL SDV 1mL 25 MG IVP (13:46)
[2022-09-18] MEDS: sodium chloride 0.9% 250 ML 75 ML IV (13:47)
[2022-09-18 13:52] LABS: Basophils # 0.1 10^3/uL (0.0-0.1); Basophils % 0.6 %; Eosinophils # 0.2 10^3/uL (0.0-0.8); Eosinophils % 2.1 %; Hematocrit 31.9 % (37.0-47.0); Hemoglobin 10.5 g/dL (11.5-15.3); Lymphocytes # 1.4 10^3/uL (0.8-4.8); Lymphocytes % 17.5 %; Mean Corpuscular HGB Conc 32.9 g/dL (30.0-36.0); Mean Corpuscular Volume 106.3 fl (81-99); Mean Platelet Volume 9.3 fL (7.4-10.4); Monocytes # 0.9 10^3/uL (0.2-0.9); Monocytes % 11.4 %; Neutrophils # 5.43 10^3/uL (1.8-7.7); Neutrophils % 67.2 %; Nucleated Red Blood Cells % 0 %; Platelet Count 245 10^3/cmm (130-400); Red Cell Distribution Width 12.9 % (12.1-15.1); White Blood Count 8.1 10^3/uL (4.0-10.0)
[2022-09-18 13:58] LABS: Erythrocyte Sedimentation Rate < 1 mm/hr (0-15)
[2022-09-18] MEDS: tocilizumab 390 MG in sodium chloride 0.9% (100 ml) 100 ML 119.5 MG IV (14:05)
[2022-09-18 14:10] VITALS: BP 156/73; PULSE 67; RESP 18; TEMP 36.1; O2SAT 95
[2022-09-18 14:34] LABS: Alanine Aminotransferase 15 U/L (0-33); Albumin Level 4.2 g/dL (3.5-5.2); Alkaline Phosphatase 34 U/L (35-105); Anion Gap 14.4 (5-19); Aspartate Amino Transferase 17 U/L (0-32); Blood Urea Nitrogen 30 mg/dL (8-23); Calcium 9.4 mg/dL (8.5-10.5); Carbon Dioxide 27 mmol/L (22-29); Chloride 103 mmol/L (98-107); Ferritin 331 ng/mL (15-150); Globulin 1.9 g/dL (1.3-4.6); Glucose 93 mg/dL (65-115); Iron 146 ug/dL (37-145); Lactate Dehydrogenase 343 U/L (135-214); Osmolality Calculated 296 mOsm/kg (285-295); Percent Saturation 54.8 % (20-50); Potassium 4.4 mmol/L (3.5-5.1); Sodium 140 mmol/L (136-145); Total Bilirubin 0.4 mg/dL (0.15-1.2); Total Iron Binding Capacity 266 mcg/dl; Total Protein 6.1 g/dL (6.6-8.7); Unsaturated Iron Binding 120 ug/dL (112-347)
[2022-09-18 14:49] LABS: Vitamin B12 394 pg/mL (232-1245)
[2022-09-18 15:10] VITALS: BP 172/68; PULSE 65; RESP 20; TEMP 36.4; O2SAT 95
[2022-09-23 20:00] LABS: Methylmalonic Acid 271 nmol/L (87-318)
[2022-09-24 08:39] LABS: Copper Level 58 mcg/dL (70-175)
== END 2022-09-25 23:59 | disposition home or self-care (01) ==
PROVIDERS: PCP Internal Medicine; Visit Provider Internal Medicine Medical Oncology
DX: D64.9 Anemia, unspecified; Z79.899 Other long term (current) drug therapy
CPT/HCPCS: 80053; 82525; 82607; 82728; 83540; 83550; 83615; 83921; 85025; 85651; 86140; 96375; 96413; 99213; J1200; J2920; J3262; J7050

== ENCOUNTER → 2022-10-02 14:09 | Outpatient (BNVA) | payer MEDICARE, BC, SELFPAY | PROVIDERS: PCP Internal Medicine; Visit Provider Internal Medicine Rheumatology | DX: M31.6 Other giant cell arteritis (principal); Z71.89 Other specified counseling; Z79.899 Other long term (current) drug therapy; M51.37 Other intervertebral disc degeneration, lumbosacral region | CPT/HCPCS: 99214 ==

== ENCOUNTER → 2022-10-21 10:25 | Outpatient (BNVA) | payer MEDICARE, BC, SELFPAY | PROVIDERS: PCP Internal Medicine; Visit Provider Student in an Organized Health Care Education/Training Program | DX: M17.0 Bilateral primary osteoarthritis of knee (principal); Z71.89 Other specified counseling | CPT/HCPCS: 20610; 99213; J3301 ==

== ENCOUNTER 2022-10-25 09:15 | Oncology outpatient (recurring) (ONCR) | payer MEDICARE, BC, SELFPAY ==
[2022-10-16 12:40] VITALS: BP 130/60; PULSE 72; RESP 16; TEMP 36.8; O2SAT 97
[2022-10-16] MEDS: acetaminophen 325 mg Tablet 650 MG PO (13:28)
[2022-10-16] MEDS: sodium chloride 0.9% 250 ML 75 ML IV (13:29)
[2022-10-16] MEDS: dexamethasone 10 mg/mL INJ 6 MG IVP (13:34)
[2022-10-16] MEDS: diphenhydrAMINE 50 mg/mL SDV 1mL 25 MG IVP (13:36)
[2022-10-16] MEDS: TOCILIZUMAB IV (13:54)
[2022-10-16] MEDS: SODIUM CHLORIDE 0.9% IV (13:54)
[2022-10-16 15:00] VITALS: BP 132/60; PULSE 68; RESP 16; TEMP 36.5; O2SAT 99
[2022-10-25 08:47] VITALS: BP 148/66; PULSE 65; RESP 18; TEMP 36.8; O2SAT 97
[2022-10-25 09:06] LABS: Basophils % 0.1 %; Eosinophils % 0.1 %; Hematocrit 33.7 % (37.0-47.0); Hemoglobin 11.1 g/dL (11.5-15.3); Lymphocytes # 1.5 10^3/uL (0.8-4.8); Lymphocytes % 11.3 %; Mean Corpuscular HGB Conc 32.9 g/dL (30.0-36.0); Mean Corpuscular Hemoglobin 34.9 pg (28.0-34.0); Mean Platelet Volume 9.2 fL (7.4-10.4); Monocytes # 1.6 10^3/uL (0.2-0.9); Monocytes % 11.5 %; Neutrophils # 9.79 10^3/uL (1.8-7.7); Neutrophils % 72.8 %; Nucleated Red Blood Cells % 0 %; Platelet Count 264 10^3/cmm (130-400); Red Blood Count 3.18 10^6/uL (4.1-5.3); Red Cell Distribution Width 12.1 % (12.1-15.1); White Blood Count 13.5 10^3/uL (4.0-10.0)
[2022-10-25 10:10] LABS: LAB Peripheral Smear Sent for Review
== END 2022-10-25 23:59 | disposition home or self-care (01) ==
PROVIDERS: PCP Internal Medicine; Visit Provider Internal Medicine Medical Oncology
DX: D72.829 Elevated white blood cell count, unspecified (principal)
CPT/HCPCS: 36415; 85025; 96365; 96375; J1100; J1200; J3262; J7050

== ENCOUNTER 2022-11-13 12:45 | Oncology outpatient (recurring) (ONCR) | payer MEDICARE, BC, SELFPAY ==
[2022-11-13 13:29] VITALS: BP 161/56; PULSE 67; RESP 18; TEMP 36.3; O2SAT 97
[2022-11-13] MEDS: sodium chloride 0.9% 250 ML 75 ML IV (13:51)
[2022-11-13] MEDS: acetaminophen 325 mg Tablet 650 MG PO (13:51)
[2022-11-13] MEDS: diphenhydrAMINE 50 mg/mL SDV 1mL 25 MG IVP (13:55)
[2022-11-13] MEDS: methylPREDNISolone sod succ 40 mg/mL INJ IVP (14:00)
[2022-11-13] MEDS: SODIUM CHLORIDE 0.9% IV (14:04)
[2022-11-13] MEDS: TOCILIZUMAB IV (14:04)
[2022-11-13 15:25] VITALS: BP 182/74; PULSE 84; RESP 18; TEMP 36.4; O2SAT 97
[2022-11-13 15:28] VITALS: BP 182/74; PULSE 87; RESP 18; TEMP 36.1; O2SAT 98
== END 2022-11-25 23:59 | disposition home or self-care (01) ==
PROVIDERS: PCP Internal Medicine; Visit Provider Internal Medicine Medical Oncology
DX: M31.6 Other giant cell arteritis (principal)
CPT/HCPCS: 96374; 96375; 96413; J1200; J2920; J3262; J7050

== ENCOUNTER → 2022-12-10 12:20 | Outpatient (BNVA) | payer MEDICARE, BC, SELFPAY | PROVIDERS: PCP Internal Medicine; Visit Provider Internal Medicine Cardiovascular Disease | DX: I13.0 Hypertensive heart and chronic kidney disease with heart failure and stage 1 through stage 4 chronic kidney disease, or unspecified chronic kidney disease (principal); N18.30 Chronic kidney disease, stage 3 unspecified; I50.9 Heart failure, unspecified; M54.9 Dorsalgia, unspecified; G89.29 Other chronic pain; M31.6 Other giant cell arteritis | CPT/HCPCS: 99213 ==

== ENCOUNTER 2022-12-11 12:30 | Oncology outpatient (recurring) (ONCR) | payer MEDICARE, BC, SELFPAY ==
[2022-12-11 13:45] VITALS: BP 159/70; PULSE 70; RESP 16; TEMP 36.6; O2SAT 95
[2022-12-11] MEDS: acetaminophen 325 mg Tablet 650 MG PO (14:04)
[2022-12-11] MEDS: sodium chloride 0.9% 250 ML 75 ML IV (14:04)
[2022-12-11] MEDS: diphenhydrAMINE 50 mg/mL SDV 1mL 25 MG IVP (14:05)
[2022-12-11] MEDS: methylPREDNISolone sod succ 40 mg SDV IVP (14:07)
[2022-12-11 16:00] VITALS: BP 136/76; PULSE 70; RESP 16; TEMP 36.9; O2SAT 95
== END 2022-12-26 23:59 | disposition home or self-care (01) ==
PROVIDERS: PCP Internal Medicine; Visit Provider Internal Medicine Medical Oncology
DX: M31.6 Other giant cell arteritis (principal)
CPT/HCPCS: 96375; 96413; J1200; J2920; J3262; J7050

== ENCOUNTER → 2022-12-12 10:32 | Outpatient (BNVA) | payer MEDICARE, BC, SELFPAY | PROVIDERS: PCP Internal Medicine; Visit Provider Internal Medicine Pulmonary Disease | DX: R06.00 Dyspnea, unspecified; M35.3 Polymyalgia rheumatica; I25.10 Atherosclerotic heart disease of native coronary artery without angina pectoris; Z91.09 Other allergy status, other than to drugs and biological substances | CPT/HCPCS: 99204 ==

== ENCOUNTER 2023-01-08 09:00 | Oncology outpatient (recurring) (ONCR) | payer MEDICARE, BC, SELFPAY ==
[2023-01-01 14:16] VITALS: BP 186/73; PULSE 86; RESP 18; TEMP 36.8; O2SAT 94
[2023-01-01 14:40] LABS: Basophils % 0.6 %; Eosinophils # 0.1 10^3/uL (0.0-0.8); Eosinophils % 1.2 %; Hematocrit 32.7 % (36-47); Lymphocytes # 1.4 10^3/uL (0.8-4.8); Lymphocytes % 20.2 %; Mean Corpuscular HGB Conc 33.9 g/dL (30-55); Mean Corpuscular Hemoglobin 35.8 pg (27-33); Mean Corpuscular Volume 105.5 fl (85-98); Mean Platelet Volume 8.9 fL (7.4-10.4); Monocytes # 0.8 10^3/uL (0.2-0.9); Monocytes % 12.5 %; Neutrophils # 4.29 10^3/uL (1.8-7.7); Neutrophils % 63.7 %; Nucleated Red Blood Cells % 0 %; Platelet Count 253 10^3/cmm (157-399); Red Cell Distribution Width 13.4 % (12.1-15.1); White Blood Count 6.73 10^3/uL (3.29-11.43)
[2023-01-01 15:08] LABS: Alanine Aminotransferase 16 U/L (0-33); Albumin Level 4.5 g/dL (3.5-5.2); Alkaline Phosphatase 41 U/L (35-105); Anion Gap 17.5 (5-19); Aspartate Amino Transferase 17 U/L (0-32); Blood Urea Nitrogen 31 mg/dL (8-23); Calcium 9.5 mg/dL (8.5-10.5); Carbon Dioxide 25 mmol/L (22-29); Chloride 103 mmol/L (98-107); Free T4 Free Thyroxine 1.52 ng/dL (0.82-1.77); Globulin 1.7 g/dL (1.3-4.6); Glucose 102 mg/dL (65-115); Lactate Dehydrogenase 322 U/L (135-214); Osmolality Calculated 299 mOsm/kg (285-295); Potassium 4.5 mmol/L (3.5-5.1); Sodium 141 mmol/L (136-145); Thyroid Stimulating Hormone 1.76 uIU/mL (0.27-4.20); Total Bilirubin 0.5 mg/dL (0.15-1.2); Total Protein 6.2 g/dL (6.6-8.7)
[2023-01-01 15:09] LABS: Creatinine Clr Calc Pharmacy 31.5541
[2023-01-01 15:23] LABS: Ferritin 316 ng/mL (15-150); Iron 138 ug/dL (37-145); Percent Saturation 54.1 % (20-50); Total Iron Binding Capacity 255 mcg/dl; Unsaturated Iron Binding 117 ug/dL (112-347)
[2023-01-01 15:39] LABS: Vitamin B12 408 pg/mL (232-1245)
[2023-01-06 19:10] LABS: Copper Level 58 mcg/dL (70-175)
[2023-01-08 09:00] VITALS: BMI 34.9
[2023-01-08 09:25] VITALS: BP 125/56; PULSE 77; RESP 18; TEMP 36.7; O2SAT 96
[2023-01-08] MEDS: sodium chloride 0.9% 250 ML 75 ML IV (09:37)
[2023-01-08] MEDS: acetaminophen 325 mg Tablet 650 MG PO (09:40)
[2023-01-08] MEDS: diphenhydrAMINE 50 mg/mL SDV 1mL 25 MG IVP (09:42)
[2023-01-08] MEDS: methylPREDNISolone sod succ 40 mg SDV IVP (09:46)
[2023-01-08 11:20] VITALS: BP 135/58; PULSE 72; RESP 18; TEMP 36.3; O2SAT 96
== END 2023-01-25 23:59 | disposition home or self-care (01) ==
PROVIDERS: Internal Medicine; Nurse Practitioner Family; PCP Internal Medicine; Visit Provider Internal Medicine Medical Oncology
DX: M31.6 Other giant cell arteritis (principal); Z53.9 Procedure and treatment not carried out, unspecified reason
CPT/HCPCS: 36415; 80053; 82525; 82607; 82728; 83540; 83550; 83615; 84439; 84443; 85025; 96374; 96375; 96413; 99214; J1200; J2920; J3262; J7050

== ENCOUNTER → 2023-01-09 10:24 | Outpatient (BNVA) | payer MEDICARE, BC, SELFPAY | PROVIDERS: PCP Internal Medicine; Visit Provider Student in an Organized Health Care Education/Training Program | DX: M17.0 Bilateral primary osteoarthritis of knee (principal) | CPT/HCPCS: 20610; 99213; J7318 ==

== ENCOUNTER 2023-01-10 08:41 | Outpatient (CLI) | payer MEDICARE, BC, SELFPAY | END 2023-01-10 08:42 | disposition home or self-care (01) | LOC: RT 08:43 | PROVIDERS: PCP Internal Medicine; Visit Provider Internal Medicine Pulmonary Disease | DX: R06.09 Other forms of dyspnea (principal) | CPT/HCPCS: 94010; 94618; 94726; 94729 ==

== ENCOUNTER 2023-01-24 12:00 | Emergency (ER) | payer MEDICARE, BC, SELFPAY ==
[2023-01-24 12:12] VITALS: BP 187/80; PULSE 74; RESP 17; TEMP 36.6; O2SAT 97; BMI 34.1
[2023-01-24 13:08] LABS: Basophils % 0.7 %; Eosinophils # 0.1 10^3/uL (0.0-0.8); Eosinophils % 1.7 %; Hematocrit 34.1 % (36-47); Lymphocytes # 1.2 10^3/uL (0.8-4.8); Lymphocytes % 20.1 %; Mean Corpuscular Hemoglobin 35.9 pg (27-33); Mean Corpuscular Volume 105.6 fl (85-98); Mean Platelet Volume 8.8 fL (7.4-10.4); Monocytes # 0.6 10^3/uL (0.2-0.9); Monocytes % 9.6 %; Neutrophils # 3.93 10^3/uL (1.8-7.7); Nucleated Red Blood Cells % 0 %; Platelet Count 251 10^3/cmm (157-399); Red Blood Count 3.23 10^6/uL (3.85-5.65); Red Cell Distribution Width 12.9 % (12.1-15.1); White Blood Count 5.86 10^3/uL (3.29-11.43)
[2023-01-24 13:37] LABS: Alanine Aminotransferase 15 U/L (0-33); Albumin Level 4.4 g/dL (3.5-5.2); Alkaline Phosphatase 38 U/L (35-105); Anion Gap 17.9 (5-19); Aspartate Amino Transferase 19 U/L (0-32); Blood Urea Nitrogen 17 mg/dL (8-23); Carbon Dioxide 25 mmol/L (22-29); Chloride 100 mmol/L (98-107); Globulin 1.8 g/dL (1.3-4.6); Glucose 114 mg/dL (65-115); NT Pro B Type Natriuretic Pept 356 pg/mL (0-450); Osmolality Calculated 290 mOsm/kg (285-295); Potassium 3.9 mmol/L (3.5-5.1); Sodium 139 mmol/L (136-145); Total Bilirubin 0.4 mg/dL (0.15-1.2); Total Protein 6.2 g/dL (6.6-8.7)
--- NOTE | 2023-01-24 14:07 | XR_ITS ---
WS: [id number] Portable AP upright chest, 01/24/2023 Clinical Data: epigastric pain Comparison: None. Findings: No nodules, masses or effusions are seen. The heart is normal. The pulmonary vascularity is not increased. No pneumonia or pneumothorax is seen. There is a calcified granuloma in the left lowe r lobe unchanged. The aortic arch and descending thoracic aorta show minimal calcification and tortuo sity. Impression: Atherosclerosis.
--- NOTE | 2023-01-24 14:11 | W.ED.DIZZY ---
HPI - Dizziness General: Chief Complaint: Dizziness Stated Complaint: dizziness Time Seen by Provider: 01/24/23 13:34 Source: patient Mode of arrival: ambulatory Limitations: no limitations History of Present Illness: HPI Narrative: Patient states she is here because she does feel sick. She states that she has had a number of loose stools over the past 3 days. She states she usually has some less formed stools but they have been more watery over the past 3 days. She denies any blood in her stools or black tarry stools. She denies any associated fever. She states she has had decreased intake over the past 24 hours as well. She states she has not eaten anything for the last couple of 3 days. No known exposure to infectious disease. She denies any chest pain. She has not had any recent travel, recent antibiotic use etc. She states she has had some mild vomiting as well. She states she has had decreased urine output over the past 12 hours as well. She is wondering if her kidneys or something else is causing her problems although she does not have a history of recurrent urinary tract infections and states her case stage III kidney disease has been stable for quite a time. She denies any headache, vertigo etc. She states she just feels lightheaded at times. He has a history of temporal arteritis and receives monthly injections of Enbrel for that condition. MD elicited complaint: lightheadedness Associated symptoms: Reports nausea and vomiting; Denies chest pain, chills, headache(s), nasal congestion, palpitations or syncope Associated neuro symptoms: Deny numbness in extremities Review of Systems Const: Denies: fever(s), chills or body aches Eyes: Denies: change in vision or blurry vision ENMT: Denies: throat pain, odynophagia, nasal discharge, nasal congestion or nasal obstruction Card: Denies: chest pain, palpitations, irregular heart rhythm, syncope or pre-syncope Resp: Denies: dyspnea, productive cough, non-productive cough or wheezing GI: Reports: nausea, vomiting and diarrhea; Denies: abdominal pain, hematemesis, hematochezia or melena : Reports: oliguria; Denies: flank pain, difficulty voiding, dysuria or urinary frequency Musc: Reports: extremity pain (Chronic) and extremity swelling (Chronic); Denies: neck pain or back pain Skin/Breast: Denies: pruritus Neuro: Denies: headache(s), numbness in extremities, weakness in extremities or frequent falls Psych: Denies: anxiety or depression Alpesh/Lymph: Denies: easy bruising or easy bleeding PFSH ED PFSH: Medical History Anemia CKD (chronic kidney disease) stage 3, GFR 30-59 ml/min Copper deficiency GERD (gastroesophageal reflux disease) Giant cell arteritis Heart failure Hypercalcemia Hypertension Hypocalcemia Osteoporosis PMR (polymyalgia rheumatica) 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 Right temporal headache Surgical History H/O esophagogastroduodenoscopy H/O thyroidectomy History of arthroscopy of right knee History of left hip replacement History of temporal artery biopsy (09/13/20) Hx of BSO (bilateral salpingo-oophorectomy) Status post colonoscopy Status post lumbar laminectomy (05/17/22) L4/5 laminectomy with partial facetectomy and L5/S1 laminectomy with partial facetectomy Family History Father CAD (coronary artery disease) Prostate cancer Mother CAD (coronary artery disease) Sister Blood disorder Other Cancer Diabetes Hypertension Stroke Denies family history of Rheumatoid arthritis Systemic lupus erythematosus (SLE) in adult Social History Smoking and tobacco status: never smoked Second hand smoke exposure: No Smoking risk assessment/counseling performed?: No Alcohol intake: never Desire information about alcohol rehabilitation?: No Counseling given: No Substance/Drug Use: never Desire information about substance/drug rehabilitation?: No Counseling given: No Adopted: No Caregiver/support person: No Lives independently: Yes Household members: none Housing: House Marital status: / Number of children: 2 Highest education level completed: High School Graduate service: No Current occupational status: retired Sexually active: No Do you think of yourself as: Straight/Heterosexual Current gender identity: Female Agree to transfusion: Yes Physical Exam Narrative: EXAM NARRATIVE: She is alert cooperative in no acute distress. Speech is goal-directed and fluent. Const: COMMON NORMALS: no acute distress, patient oriented x3 and alert GENERAL APPEARANCE: cooperative and comfortable NUTRITIONAL APPEARANCE: overweight HENMT: COMMON NORMALS: normocephalic, Normal nasal mucous membranes and turbinates present, moist oral mucous membranes and oropharynx normal HEAD & SCALP: normocephalic; no scalp tenderness and no Temporal artery tenderness present NOSE: Normal nasal mucous membranes and turbinates present Eye: COMMON NORMALS: Equal, round and reactive pupils present, EOMs intact bilaterally and conjunctivae normal CONJUNCTIVA: Yes conjunctivae normal PUPIL: Yes Equal, round and reactive pupils present Neck/C-Spine: COMMON NORMALS: full ROM, no lymphadenopathy, supple and No carotid bruits Chest: COMMONS NORMALS: normal inspection of the chest Resp: COMMON NORMALS: normal respiratory effort, No retractions, No use of accessory muscles and clear to auscultation bilaterally AUSCULTATION: clear to auscultation bilaterally GI: COMMON NORMALS: Normal to inspection, nondistended, normoactive bowel sounds present, Soft to palpation and non-tender INSPECTION: Yes central obesity PALPATION: Yes Soft to palpation : COMMON NORMALS: Yes no CVA tenderness BLADDER/KIDNEY EXAM: Yes no CVA tenderness Back/Pelvis: COMMON NORMALS: no CVA tenderness, thoracic and lumbar spine normal to inspection, no thoracic nor lumbar tenderness and thoraco-lumbar ROM normal Extremity: COMMON NORMALS: full ROM, capillary refill normal and no calf tenderness NARRATIVE EXTREMITY EXAM: She has some chronic appearing skin changes of both lower extremities. There is no proximal lymphangitis or lymphadenopathy. Neuro: COMMON NORMALS: patient oriented x3 and moves all extremities SENSORIUM/ORIENTATION: Yes alert CRANIAL NERVES: Yes CN normal except as noted Psych: COMMON NORMALS: mental status grossly normal Skin: COMMON NORMALS: no wounds, turgor normal, no jaundice and no petechiae GENERAL SKIN EXAM: turgor normal Course Reevaluation(s): Reevaluation #1: Patient's initial troponin is noted to be elevated which is also unexpected however certainly with her vague presentation certainly could present occult ACS. Her EKG is reassuring. We will go ahead and repeat serial troponins to ensure no dynamic changing. Time: 14:54 Reevaluation #2: Patient states she feels pretty good. She does not feel perfect but pretty good and she is asking about going home. I discussed current findings there imitations and implications. We will go ahead and send her third troponin to ensure that it is still falling. She is taking p.o. fluids well. Time: 19:02 Reevaluation #3: Third troponin continues to fall. She remained stable without any dynamic or acute EKG changes. We reviewed current findings and their implications and limitations. We discussed treatment options to include continued observation in the hospital versus outpatient follow-up with cardiology. She voiced understanding of the risks and benefits but would prefer to go home at this time and return if she has worsening symptoms. She certainly clinically stable to do so and I have placed a consultation in through case management for a cardiology follow-up with them next 1 to 2 weeks. Time: 20:37 Vital Signs: Vital signs: Vital Signs Temperature 98 F 01/24/23 12:12 Pulse Rate 84 01/24/23 17:00 Respiratory Rate 16 01/24/23 17:00 Blood Pressure 156/82 01/24/23 17:00 Pulse Oximetry 97 01/24/23 17:00 Oxygen Delivery Me thod Room Air 01/24/23 12:12 [facility] - Dizziness Medical Decision Making This patient presented to the emergency department with this general unwell feeling for the past several days. Her primary concern is that she might be having issues with her kidneys since she had not urinated as much in the last day or so as she normally does. She does have a history of giant cell arteritis and takes a biologic infusion once monthly. However she denied any fevers chills headache jaw claudication visual changes etc. She has had a previous cardiology work-up which showed minimal disease and no interventions indicated at that time. She denies any objective symptoms of chest pain or other cardiovascular symptoms. She denies any exposure to infectious disease abdominal pain blood in her stools etc. Clinical examination was reassuring without any evidence of obvious stigmata of emergency medical condition. A work-up was undertaken to ensure no evidence of occult urinary retention Urinary tract infection, volume depletion etc. Chest x-ray was reassuring without evidence of cardiomegaly, infiltrative process etc. initial troponin was elevated without any dynamic or ischemic EKG changes. She was asymptomatic at that time. Repeat troponins both at 2 and 6 hours were obtained to ensure that there was no evidence of ongoing ischemia and those values all trended downward. Again repeat EKGs did not show any ischemic changes. Review of past records reveal that her sestamibi did show some mild ischemia on perfusion images. It was felt that potentially her symptoms may have been related to occult nonocclusive myocardial injury however nothing acute at this time or ongoing. No other evidence to suggest urinary tract infection, volume depletion etc. She was drinking fluids and comfortable and desired to be discharged to outpatient follow-up a consultation was placed to cardiology for follow-up and also return precautions were discussed with both she and her family. They voiced understanding. Medical Records I reviewed the patient's medical records. Sestamibi scan from approximately 2 years ago showed reversible defect suggestive of ischemic changes Lab Data I reviewed the patient's lab results. 01/24/23 12:58 01/24/23 12:58 Laboratory Results WBC 5.86 10^3/uL (3.29-11.43) 01/24/23 12:58 RBC 3.23 10^6/uL (3.85-5.65) L 01/24/23 12:58 Hgb 11.60 g/dL (11.27-16.99) 01/24/23 12:58 Hct 34.1 % (36-47) L 01/24/23 12:58 MCV 105.6 fl (85-98) H 01/24/23 12:58 MCH 35.9 pg (27-33) H 01/24/23 12:58 MCHC 34.0 g/dL (30-55) 01/24/23 12:58 RDW 12.9 % (12.1-15.1) 01/24/23 12:58 Plt Count 251 10^3/cmm (157-399) 01/24/23 12:58 MPV 8.8 fL (7.4-10.4) 01/24/23 12:58 Neut % (Auto) 67.0 % 01/24/23 12:58 Lymph % (Auto) 20.1 % 01/24/23 12:58 [place] % (Auto) 9.6 % 01/24/23 12:58 Eos % (Auto) 1.7 % 01/24/23 12:58 Baso % (Auto) 0.7 % 01/24/23 12:58 Neut # (Auto) 3.93 10^3/uL (1.8-7.7) 01/24/23 12:58 Lymph # (Auto) 1.2 10^3/uL (0.8-4.8) 01/24/23 12:58 [place] # (Auto) 0.6 10^3/uL (0.2-0.9) 01/24/23 12:58 Eos # (Auto) 0.1 10^3/uL (0.0-0.8) 01/24/23 12:58 Baso # (Auto) 0.0 10^3/uL (0.0-0.1) 01/24/23 12:58 Nucleated RBC % (auto) 0 % 01/24/23 12:58 Nucleated RBCs # 0.0 /100WBC 01/24/23 12:58 Sodium 139 mmol/L (136-145) 01/24/23 12:58 Potassium 3.9 mmol/L (3.5-5.1) 01/24/23 12:58 Chloride 100 mmol/L (98-107) 01/24/23 12:58 Carbon Dioxide 25 mmol/L (22-29) 01/24/23 12:58 Anion Gap 17.9 (5-19) 01/24/23 12:58 BUN 17 mg/dL (8-23) 01/24/23 12:58 Creatinine 1.7 mg/dL (0.5-0.9) H 01/24/23 12:58 GFR Calculation Not Reportable 01/24/23 12:58 Glucose 114 mg/dL (65-115) 01/24/23 12:58 Calculated Osmolality 290 mOsm/kg (285-295) 01/24/23 12:58 Calcium 10.0 mg/dL (8.5-10.5) 01/24/23 12:58 Total Bilirubin 0.4 mg/dL (0.15-1.2) 01/24/23 12:58 AST 19 U/L (0-32) 01/24/23 12:58 ALT 15 U/L (0-33) 01/24/23 12:58 Alkaline Phosphatase 38 U/L (35-105) 01/24/23 12:58 Troponin T Gen 5 ng/L 80 ng/L (0-10) H 01/24/23 12:58 Troponin T 120 Minute 67.95 ng/L (0-10) H 01/24/23 15:11 Delta Troponin T -12.05 ABS# (0-10) L 01/24/23 15:11 Troponin T Hi Sens 6Hr 56.09 ng/L (0-10) H 01/24/23 19:16 Troponin T Hi Sens 6Hr Delta -23.91 ng/L (0-12) L 01/24/23 19:16 NT-Pro-B Natriuret Pep 356 pg/mL (0-450) 01/24/23 12:58 Total Protein 6.2 g/dL (6.6-8.7) L 01/24/23 12:58 Albumin 4.4 g/dL (3.5-5.2) 01/24/23 12:58 Globulin 1.8 g/dL (1.3-4.6) 01/24/23 12:58 Urine Color Yellow (Yellow) 01/24/23 18:00 Urine Appearance Clear (CLEAR) 01/24/23 18:00 Urine pH 5 (5-7) 01/24/23 18:00 Ur Specific [place] 1.010 (1.005-1.030) 01/24/23 18:00 Urine Protein Neg (Negative) 01/24/23 18:00 Urine Glucose (UA) Norm (Normal) 01/24/23 18:00 Urine Ketones Negative (Negative) 01/24/23 18:00 Urine Blood Neg (Negative) 01/24/23 18:00 Urine Nitrate Negative (Negative) 01/24/23 18:00 Urine Bilirubin Neg (Negative) 01/24/23 18:00 Urine Urobilinogen Neg mg/dL (Negative) 01/24/23 18:00 Ur Leukocyte Esterase Trace (Negative) H 01/24/23 18:00 Urine RBC None /hpf (0-2) 01/24/23 18:00 Urine WBC None /hpf (0-5) 01/24/23 18:00 Ur Squamous Epith Cells Rare /hpf (0-5) 01/24/23 18:00 Amorphous Sediment Not Reportable 01/24/23 18:00 Urine Bacteria None /hpf (NONE) 01/24/23 18:00 All radiology interpretation(s) finalized by discharge EKG Data EKG 1: I personally reviewed and interpreted this EKG as follows: Interpretation: Contemporaneous review of EKG reveals a ventricular rate of 77 bpm. She has a normal [place] interval, normal QRS duration normal corrected QT interval. Normal axis. No acute ST-T wave changes noted at this time. EKG 2: I personally reviewed and interpreted this EKG as follows: Interpretation: Contemporaneous review of subsequent EKG same visit reveals ventricular rate of 77 bpm. Consistent with sinus rhythm. Normal intervals, normal QRS duration, corrected QTc. Normal axis. No acute ST-T wave changes noted. Discharge Plan Discharge Patient Disposition: Home Clinical Impression: Elevated troponin level, GCA (giant cell arteritis), Chronic kidney disease Condition: Stable Prescriptions: No Action calcium carbonate [Tums Ultra] 400 mg calcium (1,000 mg) tablet,chewable See Rx Instructions .ROUTE .COMPLEX Rx Instructions: 400 mg orally every other day in the evening. rosuvastatin 5 mg tablet 5 mg PO DAILY aspirin 81 mg tablet,delayed release (DR/EC) 81 mg PO BEDTIME acetaminophen [Tylenol Extra Strength] 500 mg tablet 1,000 mg PO TID Actemra 400 mg/20 mL (20 mg/mL) solution 20 mg IV Q14D gabapentin 300 mg capsule 300 mg PO TID Qty: 90 4RF prednisone 2.5 mg tablet See Rx Instructions PO .COMPLEX Qty: 30 0RF Rx Instructions: take 2.5mg daily x 10 days then take 2.5mg every other day [id number] then stop orally; copper gluconate 2 mg tablet 2 mg PO QAM furosemide [Lasix] 20 mg tablet 20 mg PO DAILY PRN (Reason: Edema) montelukast 10 mg tablet 10 mg PO DAILY Qty: 30 6RF diclofenac sodium 1 % gel 4 g topical QID Qty: 200 2RF Rx Instructions: apply to single knee, ankle, foot; for foot includes sole/toes/top of foot multivitamin with minerals Tablet 1 tab PO QAM levocetirizine 5 mg tablet 5 mg PO BEDTIME carvedilol 6.25 mg tablet See Rx Instructions .ROUTE .COMPLEX Rx Instructions: TAKE 2 TABLETS BY MOUTH IN THE MORNING AND 1 TABLET IN THE AFTERNOON ipratropium bromide 21 mcg (0.03 %) spray,non-aerosol 2 spray INTRANASAL TID PRN (Reason: drainage) Rx Instructions: USE 2 DOSES IN EACH NOSTRIL THREE TIMES DAILY NEEDED FOR DRAINAGE hydrocodone-acetaminophen 5-325 mg tablet 1 - 2 tab PO .Q4-6H PRN (Reason: Pain) levothyroxine 88 mcg tablet See Rx Instructions .ROUTE .COMPLEX Rx Instructions: Take one tablet Friday thru Friday, and 1/2 tablet on Friday. pantoprazole 40 mg tablet,delayed release (DR/EC) 40 mg PO DAILY calcitriol 0.25 mcg capsule 0.25 mcg PO DAILY Rx Instructions: IN AFTERNOON Discharge Orders: Discharge ED (Routine); Ordered 01/24/23 Ordered By: Fox Barrientos Referrals: Leti Ocasio MD [Primary Care Provider] - Discharge Diet: Usual diet Discharge Activity: Increase activity as tolerated Patient Instructions: Opioid Safety, Pain Management Activity Restrictions/Additional Instructions: You should continue all your usual medications. You should increase your fluid intake to at least 64 ounces of water daily. You may resume a more regular diet as you are tolerating. As we discussed we have placed a consultation for cardiology to see you within the next several days and you should expect a telephone call with those arrangements. If you develop any sustained chest pain, shortness of breath, any concerns at all return to the emergency department for reevaluation. Coding Level of Care Code ED [employer] Operator for Sergio Hodge
--- NOTE | 2023-01-24 14:22 | ECG_ITS ---
[facility] Test Date: 2023-01-24 Pat Name: Maggie Jeffers Department: Room: Gender: Female [employer]: : 1940 Requested By: Fox Barrientos Order Number: [id number] Teresa MD: Iftikhar Sherman M.D. Measurements Intervals [place] Rate: 77 P: 38 MA: 169 QRS: 26 QRSD: 78 T: 51 QT: 365 QTc: 414 Interpretive Statements SINUS RHYTHM LOW QRS VOLTAGE IN PRECORDIAL LEADS [QRS DEFLECTION < 1.0 mV IN CHEST LEADS] SEPTAL MYOCARDIAL INFARCTION , PROBABLY OLD [40+ ms Q WAVE IN V1/V2] Compared to ECG 05/10/2022 09:25:27 No significant changes Electronically Signed On 01-25-2023 9:43:14 CDT by Iftikhar Sherman M.D. [id number]
[2023-01-24 14:33] LABS: Troponin T (5th) Once 80 ng/L (0-10)
[2023-01-24 15:05] VITALS: BP 215/88
[2023-01-24] MEDS: lactated ringers 1,000 ML 999 ML IV (15:11)
--- NOTE | 2023-01-24 15:14 | PC.NURSE ---
PT STATES SHE DID NOT PEE AT ALL LAST NIGHT AND ONLY VOIDED A LITTLE THIS AM
[2023-01-24 15:41] LABS: Troponin 5 2HR 67.95 ng/L (0-10)
[2023-01-24 15:43] LABS: Troponin 5 2HR Delta -12.05 ABS# (0-10)
[2023-01-24 15:44] VITALS: BP 251/92; PULSE 77; RESP 16; O2SAT 96
--- NOTE | 2023-01-24 15:47 | PC.NURSE ---
PHYSICIAN GAVE VERBAL ORDER FOR BLADDER SCAN. 252ML FOUND IN SCAN
[2023-01-24 17:00] VITALS: BP 156/82; PULSE 84; RESP 16; O2SAT 97
[2023-01-24 18:19] LABS: Add Urine Culture? No; Add Urine Microscopic? YES; Bilirubin Urine Neg (Negative); Blood Urine Neg (Negative); Glucose Urine UA Norm (Normal); Ketones Urine Negative (Negative); Leukocyte Esterase Urine Trace (Negative); Nitrate Urine Negative (Negative); Protein Urine Neg (Negative); Squamous Epithelial Cell Urine RARE /hpf (0-5); Urine Appearance Clear (CLEAR); Urine Color Yellow (Yellow); Urobilinogen Urine Neg (Negative); pH Urine 5 (5-7)
[2023-01-24 19:41] LABS: Troponin 5 6HR 56.09 ng/L (0-10)
[2023-01-24 21:01] VITALS: PULSE 85; RESP 18; O2SAT 96
--- NOTE | 2023-01-26 16:53 | PC.SOCIAL ---
Cardiology Referral Referral message sent to clinic at this time. Clinic to contact patient with appt date/time.
== END 2023-01-24 21:29 | disposition home or self-care (01) ==
PROVIDERS: Physician Assistant; Emergency Provider Emergency Medicine; PCP Internal Medicine
DX: M31.6 Other giant cell arteritis (principal); R77.8 Other specified abnormalities of plasma proteins; I13.0 Hypertensive heart and chronic kidney disease with heart failure and stage 1 through stage 4 chronic kidney disease, or unspecified chronic kidney disease; I50.9 Heart failure, unspecified; N18.30 Chronic kidney disease, stage 3 unspecified; Z79.82 Long term (current) use of aspirin
CPT/HCPCS: 36415; 71045; 80053; 81001; 83880; 84484; 85025; 93005; 99285; J7120

== ENCOUNTER 2023-02-05 12:43 | Oncology outpatient (recurring) (ONCR) | payer MEDICARE, BC, SELFPAY ==
[2023-02-05 13:30] VITALS: BP 160/70; PULSE 77; RESP 16; TEMP 36.1; O2SAT 96
[2023-02-05 13:49] LABS: Basophils % 0.6 %; Eosinophils # 0.2 10^3/uL (0.0-0.8); Eosinophils % 2.5 %; Lymphocytes # 1.6 10^3/uL (0.8-4.8); Lymphocytes % 24.1 %; Mean Corpuscular HGB Conc 34.5 g/dL (30-55); Mean Corpuscular Volume 104.1 fl (85-98); Monocytes % 14.6 %; Neutrophils # 3.82 10^3/uL (1.8-7.7); Neutrophils % 56.9 %; Nucleated Red Blood Cells % 0 %; Platelet Count 277 10^3/cmm (157-399); Red Blood Count 3.17 10^6/uL (3.85-5.65); Red Cell Distribution Width 12.8 % (12.1-15.1); White Blood Count 6.72 10^3/uL (3.29-11.43)
[2023-02-05] MEDS: sodium chloride 0.9% 250 ML 75 ML IV (13:49)
[2023-02-05] MEDS: diphenhydrAMINE 50 mg/mL SDV 1mL 25 MG IVP (13:50)
[2023-02-05] MEDS: acetaminophen 325 mg Tablet 650 MG PO (13:50)
[2023-02-05] MEDS: methylPREDNISolone sod succ 40 mg SDV IVP (13:52)
[2023-02-05 14:01] LABS: Alanine Aminotransferase 18 U/L (0-33); Albumin Level 4.4 g/dL (3.5-5.2); Alkaline Phosphatase 41 U/L (35-105); Aspartate Amino Transferase 23 U/L (0-32); Blood Urea Nitrogen 21 mg/dL (8-23); Calcium 9.9 mg/dL (8.5-10.5); Carbon Dioxide 29 mmol/L (22-29); Chloride 102 mmol/L (98-107); Globulin 1.9 g/dL (1.3-4.6); Glucose 98 mg/dL (65-115); Osmolality Calculated 299 mOsm/kg (285-295); Sodium 143 mmol/L (136-145); Total Bilirubin 0.5 mg/dL (0.15-1.2); Total Protein 6.3 g/dL (6.6-8.7)
[2023-02-05 14:05] LABS: Anion Gap 15.5 (5-19); Potassium 3.5 mmol/L (3.5-5.1)
[2023-02-05 14:06] LABS: Lactate Dehydrogenase 307 U/L (135-214)
[2023-02-05] MEDS: TOCILIZUMAB IV (14:19)
[2023-02-05] MEDS: SODIUM CHLORIDE 0.9% IV (14:19)
[2023-02-05 15:30] VITALS: BP 150/70; PULSE 71; RESP 16; TEMP 36.1; O2SAT 95
[2023-02-10 18:45] LABS: Copper Level 62 mcg/dL (70-175)
== END 2023-02-25 23:59 | disposition home or self-care (01) ==
PROVIDERS: PCP Internal Medicine; Visit Provider Internal Medicine Medical Oncology
DX: M31.6 Other giant cell arteritis (principal); E61.0 Copper deficiency; D64.9 Anemia, unspecified
CPT/HCPCS: 80053; 82525; 83615; 85025; 96375; 96413; J1200; J2920; J3262; J7050

== ENCOUNTER 2023-02-06 12:10 | Outpatient (CLI) | payer MEDICARE, BC, SELFPAY ==
--- NOTE | 2023-02-06 13:00 | USCV_ITS ---
ZeyadMaggie Age: 83 Gender: F : 1940 Exam Date: 02/06/2023 12:40 Ordering Phys: Roc Salvador MD Technologist: Allyssa Valencia [place] [facility] [place]B BP: 140 / 70 HR: 83 Rhythm: Sinus Technical Quality: Adequate MEASUREMENTS (Male / Female) Normal Values 2D ECHO LV Diastolic Diameter PLAX 3.7 cm 4.2 - 5.9 / 3.9 - 5.3 cm LV Systolic Diameter PLAX 1.9 cm LV Chamber Size 3.0 cm IVS Diastolic Thickness 1.1 cm 0.6 - 1.0 / 0.6 - 0.9 cm IVS Systolic Thickness 1.4 cm LVPW Diastolic Thickness 1.2 cm 0.6 - 1.0 / 0.6 - 0.9 cm LVPW Systolic Thickness 1.4 cm RV Chamber Size 2.1 cm LVOT Diameter 2.0 cm LV Ejection Fraction 2D Teich 74.0 % LV Ejection Fraction MOD 2C 26.5 % LV Ejection Fraction 2C AL 31.8 % LA Diameter 2.6 cm LA Width 2.9 cm LA Height 4.0 cm RA Width 4.4 cm RA Height 3.7 cm Aorta at Sinotubular Diameter 2.4 cm IVC Diameter 1.5 cm DOPPLER AV Peak Velocity 131.0 cm/s LVOT Peak Velocity 118.0 cm/s AV Area Cont Eq vti 3.4 cm squared AV Area Cont Eq pk 2.8 cm squared MV Area PHT 6.7 cm squared Mitral E to A Ratio 0.7 MV E' Velocity 50.5 cm/s Mitral E to MV E' Ratio 10.9 Mitral E to LV E' Lateral Ratio 11.9 Mitral E to LV E' Septal Ratio 10.2 TR Peak Velocity 256.6 cm/s TR Peak Gradient 26.3 mmHg TR Mean Velocity 180.3 cm/s TR Mean Gradient 14.6 mmHg TR Velocity Time Integral 51.1 cm TV Peak E Velocity 61.0 cm/s Right Atrial Pressure 3.0 mmHg Pulmonary Artery Systolic Pressu 29.3 mmHg PV Peak Velocity 75.0 cm/s RV Acceleration Time 0.2 s RV Ejection Time 0.4 s RV AcT/ET 0.5 FINDINGS Left Ventricle Normal left ventricular size, systolic function with no regional wall motion abnormalities. LV EF is 55-60%. Grade 1 diastolic dysfunction Right Ventricle The right ventricle is normal in size and function. Right Atrium The right atrium is normal in size. Left Atrium The left atrium is normal in size. Mitral Valve Moderate to severe mitral annular calcification. Mild mitral regurgitation. Aortic Valve Structurally normal aortic valve . Mild aortic regurgitation. No significant stenosis. Tricuspid Valve Mild tricuspid regurgitation. Pulmonary artery systolic pressure is normal. Pulmonic Valve Not well visualized Pericardium Normal pericardium without effusion. Aorta Normal ascending aorta dimension. IVC The inferior vena cava appears normal. CONCLUSIONS LV systolic function is normal with EF of 55-60% Grade 1 diastolic dysfunction Mild mitral regurgitation Mild aortic regurgitation Mild tricuspid regurgitation Compared to prior echocardiogram from 2020, no significant changes are seen Iftikhar Sherman MD (Electronically Signed) Final Date: 15 February 2023 12:03 S
== END 2023-02-06 12:11 | disposition home or self-care (01) ==
LOC: RAD 12:11
PROVIDERS: PCP Internal Medicine; Visit Provider Internal Medicine Pulmonary Disease
DX: R06.02 Shortness of breath (principal)
CPT/HCPCS: 93306

== ENCOUNTER → 2023-02-10 12:27 | Outpatient (BNVA) | payer MEDICARE, BC, SELFPAY | PROVIDERS: PCP Internal Medicine; Visit Provider Nurse Practitioner Family | DX: I25.10 Atherosclerotic heart disease of native coronary artery without angina pectoris (principal); I13.0 Hypertensive heart and chronic kidney disease with heart failure and stage 1 through stage 4 chronic kidney disease, or unspecified chronic kidney disease; N18.30 Chronic kidney disease, stage 3 unspecified; I50.9 Heart failure, unspecified | CPT/HCPCS: 36415; 84484; 99214 ==

== ENCOUNTER 2023-03-17 14:11 | Outpatient (CLI) | payer MEDICARE, BC, SELFPAY ==
--- NOTE | 2023-03-17 14:34 | MM_ITS ---
WS: [id number] BILATERAL 3D TOMOSYNTHESIS DIGITAL SCREENING MAMMOGRAPHY WITH CAD CLINICAL INFORMATION: SCREENING HISTORY: Screening mammogram. No current complaints. COMPARISON: 2021 TECHNIQUE: Bilateral CC and MLO views. FINDINGS: Scattered fibroglandular densities bilaterally. No suspicious focal mass, asymmetry, calcifications, or architectural distortion. No evidence of malignancy. Punctate calcifications. Vascular calcificati on. IMPRESSION: MM/[place] [id number] BI-RADS: 2-Benign FOLLOW UP: 1 Year Follow-up Recommend return to annual screening mammography.
== END 2023-03-17 14:12 | disposition home or self-care (01) ==
PROVIDERS: PCP Internal Medicine; Visit Provider Internal Medicine
DX: Z12.31 Encounter for screening mammogram for malignant neoplasm of breast (principal)
CPT/HCPCS: 77063; 77067

== ENCOUNTER 2023-03-24 13:15 | Oncology outpatient (recurring) (ONCR) | payer MEDICARE, BC, SELFPAY ==
[2023-03-06 13:36] VITALS: BP 146/61; PULSE 61; RESP 18; TEMP 36.3; O2SAT 95
[2023-03-06] MEDS: acetaminophen 325 mg Tablet 650 MG PO (14:15)
[2023-03-06] MEDS: sodium chloride 0.9% 250 ML 75 ML IV (14:15)
[2023-03-06] MEDS: diphenhydrAMINE 50 mg/mL SDV 1mL 25 MG IVP (14:16)
[2023-03-06] MEDS: methylPREDNISolone sod succ 40 mg SDV IVP (14:17)
[2023-03-06] MEDS: TOCILIZUMAB IV (14:34)
[2023-03-06] MEDS: SODIUM CHLORIDE 0.9% IV (14:34)
[2023-03-06 15:31] VITALS: BP 142/59; PULSE 79; RESP 18; TEMP 36.6; O2SAT 99
[2023-03-17 14:30] LABS: Basophils % 0.4 %; Eosinophils # 0.2 10^3/uL (0.0-0.8); Eosinophils % 3.1 %; Hematocrit 31.9 % (36-47); Lymphocytes # 1.6 10^3/uL (0.8-4.8); Lymphocytes % 23.7 %; Mean Corpuscular HGB Conc 33.9 g/dL (30-55); Mean Corpuscular Hemoglobin 34.6 pg (27-33); Mean Corpuscular Volume 102.2 fl (85-98); Mean Platelet Volume 9.2 fL (7.4-10.4); Monocytes # 1.1 10^3/uL (0.2-0.9); Monocytes % 16.2 %; Neutrophils # 3.77 10^3/uL (1.8-7.7); Neutrophils % 55.4 %; Nucleated Red Blood Cells % 0 %; Platelet Count 250 10^3/cmm (157-399); Red Blood Count 3.12 10^6/uL (3.85-5.65); Red Cell Distribution Width 12.5 % (12.1-15.1)
[2023-03-17 14:47] LABS: Alanine Aminotransferase 17 U/L (0-33); Albumin Level 4.1 g/dL (3.5-5.2); Alkaline Phosphatase 45 U/L (35-105); Anion Gap 14.6 (5-19); Aspartate Amino Transferase 27 U/L (0-32); Blood Urea Nitrogen 16 mg/dL (8-23); Calcium 10.4 mg/dL (8.5-10.5); Carbon Dioxide 26 mmol/L (22-29); Chloride 105 mmol/L (98-107); Globulin 1.7 g/dL (1.3-4.6); Glucose 94 mg/dL (65-115); Lactate Dehydrogenase 274 U/L (135-214); Osmolality Calculated 295 mOsm/kg (285-295); Potassium 3.6 mmol/L (3.5-5.1); Sodium 142 mmol/L (136-145); Total Bilirubin 0.4 mg/dL (0.15-1.2); Total Protein 5.8 g/dL (6.6-8.7)
[2023-03-24 12:44] LABS: Copper Level 52 mcg/dL (70-175)
== END 2023-03-27 23:59 | disposition home or self-care (01) ==
PROVIDERS: PCP Internal Medicine; Visit Provider Internal Medicine Medical Oncology
DX: M31.6 Other giant cell arteritis (principal); E61.0 Copper deficiency; D64.9 Anemia, unspecified; Z79.899 Other long term (current) drug therapy
CPT/HCPCS: 36415; 80053; 82525; 83615; 85025; 96375; 96413; 99214; J1200; J2920; J3262; J7050